=== PATIENT | male | born 1940 | race Caucasian/White ===

== ENCOUNTER 2023-11-01 21:21 | Inpatient (IN) ==
[2023-11-01] MEDS: SODIUM CHLORIDE 0.9% 500 ML IV ONE ×2 (22:02→23:44)
[2023-11-01 22:06] LABS: Base Excess VBG -3.4 mEq/L; HCO3 VBG 21 mmol/L; Oxygen Saturation VBG 84.5 %; PCO2 VBG 37 mmHg (38-50); PO2 VBG 50 mmHg; pH VBG 7.37 (7.36-7.41)
--- NOTE | 2023-11-01 22:12 | Emergency Department Note ---
Impression & Plan Urinary tract infection, Altered mental status, Hypomagnesemia, Head injury ED Provider Note NAME: JIMENEZ BOLTON AGE: 83 SEX: M : 1940 ARRIVES VIA: Ambulance INFORMANT: Patient, the patient's daughter ED PROVIDER(S): Luciano Suarez DO CHIEF COMPLAINT: Altered mental status HPI: The patient is an 83-year-old male who presented to the emergency department by ambulance for an evaluation of confusion and weakness. The patient was found to have a fever prior to arrival. The patient was treated with Tylenol by the medics. The patient himself denies having any headache or nausea. He denies having any chest pain or difficulty breathing. The family is noticed that he has had a cough. He has not had any recent traveling. They state that when he tried to stand up he did fall and strike his head on a bedside table. The patient denies having any headache. He does not take any blood thinners at this time. They did notice his blood sugar was slightly elevated throughout the day. ROS: See above HPI for pertinent positives & negatives. A total of 10 systems reviewed and were otherwise negative. PAST MEDICAL HISTORY: See Below PAST SURGICAL HISTORY: See Below FAMILY HISTORY: See Below SOCIAL HISTORY: See Below HOME MEDICATIONS: See Below ALLERGIES: See Below VITALS: See Below PHYSICAL EXAMINATION: GENERAL: Patient is awake and answers questions appropriately. There is an odor of urine in the room. EYES: The conjunctivae are clear. The pupils are round and reactive. EARS, NOSE, MOUTH AND THROAT: The nose is without any evidence of any deformity. NECK: The neck is nontender and supple. RESPIRATORY: Normal respiratory effort is noted there is no evidence of wheezing rhonchi or rales CARDIOVASCULAR: Regular rate and rhythm noted there no murmurs rubs or gallops normal S1 normal S2. GASTROINTESTINAL: The abdomen is soft. Abdomen is nontender. MUSCULOSKELETAL/EXTREMITIES: There is no evidence of gross deformity full range of motion is noted in the hips and shoulders. SKIN: Skin is warm and dry. Trace pedal edema was noted bilaterally. NEUROLOGIC: Patient is awake and oriented to person place and situation. Strength was symmetric but diminished. MEDICAL DECISION MAKING: The patient is an 83-year-old male who presented to the emergency department by ambulance. According to the family the patient has been very weak throughout the day. He was having trouble ambulating. He is at decreased p.o. intake. He was found to have a fever by the prehospital personnel prior to arrival. He was treated with Tylenol. The patient was found to have signs of urinary tract infection on urinalysis. He was treated with IV fluids and IV antibiotics. I discussed the patient's laboratory and radiographic studies with the patient's family. He was somewhat improved on reevaluation but given his laboratory and radiographic findings I do feel the patient would be a better candidate for inpatient management. He was treated with IV fluids but he did not receive a full sepsis fluid bolus because his chest x-ray could be consistent with some volume overload. He was treated with 2000 mL of normal saline solution. Triage Nursing notes reviewed. Prior medical records reviewed Vital Signs: reviewed and remarkable for hypoxia. Differential diagnosis: Viral syndrome, otitis, pharyngitis, pneumonia, influenza, meningitis, urinary tract infection, sepsis, bacteremia, as well as other pathologies. ER treatment provided: See below Diagnostics interpreted by me: ECG: EKG was obtained in the emergency department. My interpretation is sinus tachycardia 106 bpm. Poor R wave progression was noted with high lateral ST abnormalities. Inferior Q waves were noted. This was compared to a tracing from September 23, 2005. There is an increase in the rate. The PVCs are new. Lateral ST abnormalities are new as well compared to previous tracing. Cardiac Monitoring: An order was placed for continuous cardiac monitoring. The monitor shows a rate of 81 bpm with sinus rhythm. Laboratory studies: As stated above and show below. Imaging studies: See below. Radiographic imaging was reviewed by myself Consultation(s): I discussed this case with Dr. Beck who is on-call for the [facility]. He is agreed to evaluate the patient in the emergency department. ED COURSE: Procedures: none Critical Care: I have personally spent greater than 35 minutes of critical care time in the direct management of this patient. This includes bedside care, interpretation of diagnostic studies, and testing, discussion with consultants, patient, and family members, and other required patient management activities. This 35 minutes is in excess of all separately billable procedures. Past Med/Surg History Problem List (Updated 11/01/23 @ 23:06 by Luciano Suarez DO) Head injury (Acute) Hypomagnesemia (Acute) Altered mental status (Acute) Urinary tract infection (Acute) Medical History Morbid obesity with BMI of 40.0-44.9, adult Old myocardial infarct Chronic obstructive pulmonary disease Vitamin D deficiency Mild nonproliferative diabetic retinopathy of both eyes without macular edema associated with type 2 diabetes mellitus Chronic back pain CAD (coronary artery disease) HTN, goal below 140/90 Lumbago Type 2 diabetes mellitus with hemoglobin A1c goal of less than 8.0% Surgical History S/P total knee replacement Family History Mother Heart disease Sister Heart disease Father Cancer Social History Smoking Status: Former smoker Tobacco Type: Cigarettes packs per day: 1; Hx Alcohol Use: No Hx Substance Use: No Preferred Language: Polish marital status: 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 status: retired current occupation: [employer] Feels Safe at Home: Yes Allergies Allergies Allergy/AdvReac Type Severity Reaction Status Date / Time erythromycin base AdvReac Unknown Rash Unverified 12/05/20 16:03 metformin AdvReac Unknown Palpitation Unverified 12/05/20 16:03 s pioglitazone [From Actos] AdvReac Unknown Palpitation Unverified 12/05/20 16:03 s prednisone AdvReac Unknown Syncope Unverified 12/05/20 16:03 Home Meds Home Medications Medication Instructions Recorded Confirmed amlodipine 5 mg tablet 5 mg PO DAILY 12/05/20 12/05/20 aspirin 81 mg tablet,delayed 81 mg PO DAILY 12/05/20 12/05/20 release atorvastatin 80 mg tablet 80 mg PO DAILY 12/05/20 12/05/20 buprenorphine 10 mcg/hour weekly 1 patch transdermal Q7D 12/05/20 12/05/20 transdermal patch diclofenac sodium 2 g topical BID 12/05/20 12/05/20 glipizide 10 mg tablet 10 mg PO BID 12/05/20 12/05/20 hydrocodone 10 mg-acetaminophen 1 tab PO Q6H PRN 12/05/20 12/05/20 325 mg tablet insulin human U-100 NPH-regulr 70 unit subcut BID 12/05/20 12/05/20 70-30 mix 100 unit/mL subcutaneous susp (Novolin 70/30 U-100 Insulin) lisinopril 2.5 mg tablet 2.5 mg PO DAILY 12/05/20 12/05/20 metoprolol succinate 50 mg 50 mg PO DAILY 12/05/20 12/05/20 tablet,extended release 24 hr nitroglycerin 0.4 mg sublingual 0.4 mg sublingual Q5M PRN 12/05/20 12/05/20 tablet Results & Data (ED) Vital Signs Vital Signs - 24 hr 11/01/23 21:09 11/01/23 21:24 11/01/23 21:35 Temperature 37.3 C Temperature Source Oral Pulse Rate 105 H 108 H Respiratory Rate 22 Respiratory Effort / Characteristics Non-Labored Respiratory Depth Normal Respiratory Pattern Regular Blood Pressure 140/73 Blood Pressure Mean 95 Pulse Oximetry 92 87 L Oxygen Delivery Method Oxymask Room Air Oxygen Flow Rate 2 Sepsis Recent Fever Within 48 Hours Yes Sepsis New/Unexplained Change in Mental Status Yes Sepsis Action Taken by Nursing Physician Notified Oxygen Flow Rate - Titration 2 Pulse Oximetry Post Tiitration 92 11/01/23 21:35 11/01/23 21:45 11/01/23 22:03 Temperature Temperature Source Pulse Rate 103 H 107 H 100 H Respiratory Rate 22 25 H 18 Respiratory Effort / Characteristics Respiratory Depth Respiratory Pattern Blood Pressure 162/83 H 117/82 Blood Pressure Mean 109 93 Pulse Oximetry 92 90 91 Oxygen Delivery Method Nasal Cannula Nasal Cannula Nasal Cannula Oxygen Flow Rate 2 2 2 Sepsis Recent Fever Within 48 Hours Sepsis New/Unexplained Change in Mental Status Sepsis Action Taken by Nursing Oxygen Flow Rate - Titration Pulse Oximetry Post Tiitration 11/01/23 22:15 11/01/23 22:30 11/01/23 23:00 Temperature 36.9 C Temperature Source Oral Pulse Rate 94 H 90 Respiratory Rate 20 18 Respiratory Effort / Characteristics Respiratory Depth Respiratory Pattern Blood Pressure 140/94 168/89 H Blood Pressure Mean 126 115 Pulse Oximetry 91 91 Oxygen Delivery Method Nasal Cannula Nasal Cannula Oxygen Flow Rate 2 2 Sepsis Recent Fever Within 48 Hours Sepsis New/Unexplained Change in Mental Status Sepsis Action Taken by Nursing Oxygen Flow Rate - Titration Pulse Oximetry Post Tiitration 11/01/23 23:03 11/01/23 23:18 11/01/23 23:30 Temperature Temperature Source Pulse Rate 84 84 81 Respiratory Rate 20 19 18 Respiratory Effort / Characteristics Respiratory Depth Respiratory Pattern Blood Pressure 117/76 113/70 111/71 Blood Pressure Mean 89 84 84 Pulse Oximetry 91 91 91 Oxygen Delivery Method Nasal Cannula Nasal Cannula Nasal Cannula Oxygen Flow Rate 2 2 2 Sepsis Recent Fever Within 48 Hours Sepsis New/Unexplained Change in Mental Status Sepsis Action Taken by Nursing Oxygen Flow Rate - Titration Pulse Oximetry Post Tiitration Home Medications Current Medication List: was personally reviewed by me Laboratory Data Attestation: I reviewed the patient's lab results. 11/01/23 21:25 11/01/23 21:25 Lab Results 11/01/23 11/01/23 11/01/23 Range/Units 21:25 21:27 21:59 WBC 13.18 H (4.8-10.8) K/ul RBC 4.74 (4.70-6.10) M/uL Hgb 14.4 (14.0-18.0) g/dl Hct 41.4 L (42.0-52.0) % MCV 87.3 (80.0-100.0) fL MCH 30.4 (25.0-34.0) pg MCHC 34.8 (32.0-36.0) g/dL RDW Std Deviation 41.1 (36.4-46.3) fL RDW Coeff of Nay 12.9 (11.5-14.5) % PT 13.6 H (9.0-12.0) Seconds INR 1.3 H (0.9-1.1) APTT 28 (21-31) Seconds PTT Ratio 1.0 VBG pH 7.37 (7.36-7.41) VBG pCO2 37 L (38-50) mmHg VBG pO2 50 mmHg VBG HCO3 21 mmol/L VBG O2 Saturation 84.5 % VBG Base Excess -3.4 mEq/L Sodium 138 (136-145) mmol/L Potassium 3.6 (3.5-5.1) mmol/L Chloride 108 H (98-107) mmol/L Carbon Dioxide 20 L (21-32) mmol/L Anion Gap 10 (3-11) BUN 30 H (6-23) mg/dl Creatinine 1.15 (0.6-1.4) mg/dl Est Cr Clr Drug Dosing 61.9 ml/min Est GFR ( Amer) 68.8 ml/min Est GFR (Non-Af Amer) 59.4 ml/min BUN/Creatinine Ratio 26.1 H (10-20) Glucose 177 H (70-99(Fasting)) mg/dl POC Glucose 176 H (70-99) mg/dl Lactate 3.1 H* (0.4-2.0) mmol/L Calcium 9.4 (8.6-10.3) mg/dl Magnesium 1.3 L (1.7-2.4) mg/dl Total Bilirubin 2.3 H (0.2-1.0) mg/dl AST 29 (13-39) U/L ALT 14 (7-52) U/L Alkaline Phosphatase 101 (34-104) U/L Troponin I High Sens 31.4 H (0-20) pg/ml Total Protein 5.7 L (6.0-8.3) gm/dl Albumin 3.8 (3.4-5.0) gm/dl Globulin 1.9 L (2.5-4.0) gm/dl Albumin/Globulin Ratio 2.0 (0.9-2) Procalcitonin 3.09 H (0-0.5) ng/ml Urine Color Urine Appearance (Clear) Urine pH (4.5-7.5) Ur Specific [place] (1.000-1.030) Urine Protein (Negative) Urine Glucose (UA) (Negative) Urine Ketones (Negative) Urine Blood (Negative) Urine Nitrite (Negative) Urine Bilirubin (Negative) Urine Urobilinogen (Negative) Ur Leukocyte Esterase (Negative) Urine WBC (Auto) (0-5) /hpf Urine RBC (Auto) (0-2) /hpf U Hyaline Cast (Auto) (0-2) /lpf U Epithel Cells (Auto) (0-2) /hpf Urine Bacteria (Auto) (None Seen) Granular Casts (None Prsent) /lpf Adenovirus (PCR) (NotDetected) B. pertussis DNA (PCR) (NotDetected) B.parapertussis DNA PCR (NotDetected) C. pneumoniae DNA (PCR) (NotDetected) Coronavirus OC43 (PCR) (NotDetected) Coronavirus HKU1 (PCR) (NotDetected) Coronavirus 229E (PCR) (NotDetected) SARS-CoV-2 (PCR) (NotDetected) Coronavirus NL63 (PCR) (NotDetected) Human Metapneumovir PCR (NotDetected) Influenza Type A (PCR) (NotDetected) Influenza Type B (PCR) (NotDetected) M. pneumoniae (PCR) (NotDetected) Parainfluenza 1 (PCR) (NotDetected) Parainfluenza 2 (PCR) (NotDetected) Parainfluenza 3 (PCR) (NotDetected) Parainfluenza 4 (PCR) (NotDetected) RSV (PCR) (NotDetected) Entero/Rhino (PCR) (NotDetected) 11/01/23 Range/Units Unknown WBC (4.8-10.8) K/ul RBC (4.70-6.10) M/uL Hgb (14.0-18.0) g/dl Hct (42.0-52.0) % MCV (80.0-100.0) fL MCH (25.0-34.0) pg MCHC (32.0-36.0) g/dL RDW Std Deviation (36.4-46.3) fL RDW Coeff of Nay (11.5-14.5) % PT (9.0-12.0) Seconds INR (0.9-1.1) APTT (21-31) Seconds PTT Ratio VBG pH (7.36-7.41) VBG pCO2 (38-50) mmHg VBG pO2 mmHg VBG HCO3 mmol/L VBG O2 Saturation % VBG Base Excess mEq/L Sodium (136-145) mmol/L Potassium (3.5-5.1) mmol/L Chloride (98-107) mmol/L Carbon Dioxide (21-32) mmol/L Anion Gap (3-11) BUN (6-23) mg/dl Creatinine (0.6-1.4) mg/dl Est Cr Clr Drug Dosing ml/min Est GFR ( Amer) ml/min Est GFR (Non-Af Amer) ml/min BUN/Creatinine Ratio (10-20) Glucose (70-99(Fasting)) mg/dl POC Glucose (70-99) mg/dl Lactate (0.4-2.0) mmol/L Calcium (8.6-10.3) mg/dl Magnesium (1.7-2.4) mg/dl Total Bilirubin (0.2-1.0) mg/dl AST (13-39) U/L ALT (7-52) U/L Alkaline Phosphatase (34-104) U/L Troponin I High Sens (0-20) pg/ml Total Protein (6.0-8.3) gm/dl Albumin (3.4-5.0) gm/dl Globulin (2.5-4.0) gm/dl Albumin/Globulin Ratio (0.9-2) Procalcitonin (0-0.5) ng/ml Urine Color [place] Urine Appearance Turbid A (Clear) Urine pH 5.5 (4.5-7.5) Ur Specific [place] 1.025 (1.000-1.030) Urine Protein 3+ H (Negative) Urine Glucose (UA) 3+ H (Negative) Urine Ketones Trace H (Negative) Urine Blood 3+ H (Negative) Urine Nitrite Negative (Negative) Urine Bilirubin 1+ H (Negative) Urine Urobilinogen Negative (Negative) Ur Leukocyte Esterase 2+ H (Negative) Urine WBC (Auto) >50 H (0-5) /hpf Urine RBC (Auto) 0-2 (0-2) /hpf U Hyaline Cast (Auto) 11-20 H (0-2) /lpf U Epithel Cells (Auto) 0-2 (0-2) /hpf Urine Bacteria (Auto) 4+ H (None Seen) Granular Casts Present A (None Prsent) /lpf Adenovirus (PCR) Not Detected (NotDetected) B. pertussis DNA (PCR) Not Detected (NotDetected) B.parapertussis DNA PCR Not Detected (NotDetected) C. pneumoniae DNA (PCR) Not Detected (NotDetected) Coronavirus OC43 (PCR) Not Detected (NotDetected) Coronavirus HKU1 (PCR) Not Detected (NotDetected) Coronavirus 229E (PCR) Not Detected (NotDetected) SARS-CoV-2 (PCR) Not Detected (NotDetected) Coronavirus NL63 (PCR) Not Detected (NotDetected) Human Metapneumovir PCR Not Detected (NotDetected) Influenza Type A (PCR) Not Detected (NotDetected) Influenza Type B (PCR) Not Detected (NotDetected) M. pneumoniae (PCR) Not Detected (NotDetected) Parainfluenza 1 (PCR) Not Detected (NotDetected) Parainfluenza 2 (PCR) Not Detected (NotDetected) Parainfluenza 3 (PCR) Not Detected (NotDetected) Parainfluenza 4 (PCR) Not Detected (NotDetected) RSV (PCR) Not Detected (NotDetected) Entero/Rhino (PCR) Not Detected (NotDetected) Administered Medications Magnesium Sulfate/Dextrose (Magnesium Sulfate / D5w) 1 gm in 100 mls @ 100 mls/hr IV Q1H [place] Stop: 11/02/23 00:39 Last Admin: 11/01/23 23:45 Dose: 100 mls/hr Documented By: Infusion: 11/01/23 23:45 Dose: Infused Documented By: Admin: 11/01/23 22:50 Dose: 100 mls/hr Documented By: BRANDEN Discontinued Medications Sodium Chloride (Nss) 500 mls @ 999 mls/hr IV .Q31M ONE Stop: 11/01/23 22:28 Last Infusion: 11/01/23 22:31 Dose: Infused Documented By: Admin: 11/01/23 22:02 Dose: 999 mls/hr Documented By: BRANDEN Sodium Chloride (Nss) 1,000 mls @ 999 mls/hr IV .Q1H1M ONE Stop: 11/01/23 23:31 Last Infusion: 11/01/23 23:46 Dose: Infused Documented By: Admin: 11/01/23 22:50 Dose: 999 mls/hr Documented By: BRANDEN Piperacillin Sod/Tazobactam Sod (Zosyn) 4.5 gm in 100 mls @ 200 mls/hr IV NOW ONE Stop: 11/01/23 23:08 Last Infusion: 11/01/23 23:23 Dose: Infused Documented By: Admin: 11/01/23 22:50 Dose: 200 mls/hr Documented By: BRANDEN Sodium Chloride (Nss) 500 mls @ 999 mls/hr IV .Q31M ONE Stop: 11/01/23 23:42 Last Admin: 11/01/23 23:44 Dose: 999 mls/hr Documented By: BRANDEN Imaging Data Attestation: I personally reviewed and interpreted this imaging study as follows: My Impression: 1 view chest x-ray was obtained in the emergency department. My interpretation is possible left-sided infiltrate, final report pending. CT of the brain was obtained in the emergency department. My interpretation is no intracranial hemorrhage, final report pending Discharge Plan Visit Data Chief Complaint: Altered Mental Status Stated Complaint: ALTERED MENTAL STATUS, SOB ED Provider: Luciano Suarez Discharge Problem: Urinary tract infection, Altered mental status, Hypomagnesemia, Head injury Patient Disposition: Being Evaluated by Hospitalist Forms Stand Alone Forms: My [facility] Prescriptions Prescriptions: No Action hydrocodone-acetaminophen 10-325 mg tablet 1 tab PO Q6H PRN buprenorphine 10 mcg/hour patch weekly 1 patch transdermal Q7D Novolin 70/30 U-100 Insulin 100 unit/mL (70-30) suspension 70 unit subcut BID atorvastatin 80 mg tablet 80 mg PO DAILY lisinopril 2.5 mg tablet 2.5 mg PO DAILY metoprolol succinate 50 mg tablet extended release 24 hr 50 mg PO DAILY glipizide 10 mg tablet 10 mg PO BID amlodipine 5 mg tablet 5 mg PO DAILY diclofenac sodium 2 g topical BID aspirin 81 mg tablet,delayed release (DR/EC) 81 mg PO DAILY nitroglycerin 0.4 mg tablet, sublingual 0.4 mg sublingual Q5M PRN Rx Instructions: do not exceed 3 doses per episode Referrals Referrals: Richard Garcia PA-C [Outside Practitioners] - Discharge Problem: Urinary tract infection Qualifiers: Urinary tract infection type: site unspecified Hematuria presence: without hematuria Qualified Code(s): N39.0 - Urinary tract infection, site not specified Altered mental status Qualifiers: Altered mental status type: unspecified Qualified Code(s): R41.82 - Altered mental status, unspecified Head injury Qualifiers: Encounter type: initial encounter Qualified Code(s): S09.90XA - Unspecified injury of head, initial encounter
[2023-11-01 22:14] LABS: Appearance Urine Turbid (Clear); Bacteria Urine Automated 4+ (None Seen); Bilirubin Urine 1+ (Negative); Blood Urine 3+ (Negative); Color Urine Orange; Epithelial Cell Urine Auto 0-2 /hpf (0-2); Glucose Urine UA 3+ (Negative); Granular Casts Urine Present /lpf (None Prsent); Ketones Urine Trace (Negative); Leukocyte Esterase Urine 2+ (Negative); Nitrite Urine Negative (Negative); Protein Urine 3+ (Negative); RBC Urine Automated 0-2 /hpf (0-2); Specific Gravity Urine 1.025 (1.000-1.030); Urobilinogen Urine Negative (Negative); WBC Urine Automated >50 /hpf (0-5); pH Urine 5.5 (4.5-7.5)
[2023-11-01 22:26] LABS: Albumin Level 3.8 gm/dl (3.4-5.0); BUN Creatinine Ratio 26.1 (10-20); Bilirubin,Total 2.3 mg/dl (0.2-1.0); Calcium 9.4 mg/dl (8.6-10.3); Creatinine Clr Calc Pharmacy 61.9 ml/min; Est GFR (African American) 68.8 ml/min; Est GFR (Non-African American) 59.4 ml/min; Globulin 1.9 gm/dl (2.5-4.0); Magnesium 1.3 mg/dl (1.7-2.4); Potassium 3.6 mmol/L (3.5-5.1); Total Protein 5.7 gm/dl (6.0-8.3)
[2023-11-01 22:34] LABS: Troponin I High Sensitivity 31.4 pg/ml (0-20)
[2023-11-01 22:36] LABS: INR 1.3 (0.9-1.1); Partial Thromboplastin Time 28 Seconds (21-31); Prothrombin Time 13.6 Seconds (9.0-12.0)
[2023-11-01 22:48] LABS: Adenovirus PCR Not Detected (NotDetected); Bordetella parapertussis PCR Not Detected (NotDetected); Bordetella pertussis PCR Not Detected (NotDetected); Chlamydia pneumoniae PCR Not Detected (NotDetected); Coronavirus 229E PCR Not Detected (NotDetected); Coronavirus CoV-2 (COVID19)PCR Not Detected (NotDetected); Coronavirus HKU1 PCR Not Detected (NotDetected); Coronavirus NL63 PCR Not Detected (NotDetected); Coronavirus OC43PCR Not Detected (NotDetected); Human Metapneumovirus PCR Not Detected (NotDetected); Influenza A PCR Not Detected (NotDetected); Influenza B PCR Not Detected (NotDetected); Mycoplasma pneumoniae PCR Not Detected (NotDetected); Parainfluenza Virus 1 PCR Not Detected (NotDetected); Parainfluenza Virus 2 PCR Not Detected (NotDetected); Parainfluenza Virus 3 PCR Not Detected (NotDetected); Parainfluenza Virus 4 PCR Not Detected (NotDetected); Respiratory Syncytial VirusPCR Not Detected (NotDetected); Rhinovirus/Enterovirus PCR Not Detected (NotDetected)
[2023-11-01] MEDS: PIPERACILLIN/TAZOBACTAM 4.5 GM/100 ML BAG IV ONE (22:50)
[2023-11-01] MEDS: SODIUM CHLORIDE 0.9% 1,000 ML IV ONE (22:50)
[2023-11-01] MEDS: MAGNESIUM SULFATE / D5W 1 GM/100 ML BAG IV SCH (22:50)
[2023-11-01 23:01] LABS: Hematocrit (blood only) 41.4 % (42.0-52.0); Hemoglobin 14.4 g/dl (14.0-18.0); Mean Corpuscular Hemoglobin 30.4 pg (25.0-34.0); Mean Corpuscular Hgb Conc 34.8 g/dL (32.0-36.0); Mean Corpuscular Volume 87.3 fL (80.0-100.0); RDW Coefficient of Variation 12.9 % (11.5-14.5); RDW Standard Deviation 41.1 fL (36.4-46.3); Red Blood Count 4.74 M/uL (4.70-6.10); White Blood Count 13.18 K/ul (4.8-10.8)
[2023-11-01 23:57] LABS: Basophils # (auto) 0.03 K/uL (0.00-0.20); Basophils % (auto) 0.2 %; Dohle Bodies 1+; Eosinophils # (auto) 0.09 K/uL (0.00-0.50); Eosinophils % (auto) 0.7 %; Immature Granulocytes # (auto) 0.18 K/uL (0.01-0.20); Immature Granulocytes % (auto) 1.4 %; Lymphocytes # (auto) 0.48 K/uL (1.20-3.40); Lymphocytes % (auto) 3.6 %; Mean Platelet Volume 10.7 fL (9.4-12.4); Monocytes # (auto) 0.91 K/uL (0.11-0.59); Monocytes % (auto) 6.9 %; Neutrophils # (auto) 11.49 K/uL (1.40-6.50); Neutrophils % (auto) 87.2 %; Platelet Count 49 K/uL (130-400); Platelet Estimate Decreased (Normal)
[2023-11-02 00:14] LABS: Troponin I High Sensitivity 28.5 pg/ml (0-20)
--- NOTE | 2023-11-02 00:34 | CT Scan Report ---
Exam(s): CT HEAD Without Contrast EXAM: CT Head Without Intravenous Contrast CLINICAL HISTORY: Reason for exam: fall. TECHNIQUE: Axial computed tomography images of the head/brain without intravenous contrast. CTDI is 36.55 mGy and DLP is 624.41 mGy-cm. Automated exposure control was utilized for the study. A dose lowering technique was utilized adhering to the principles of ALARA. COMPARISON: No relevant prior studies available. FINDINGS: No acute intracranial hemorrhage. No midline shift or mass effect. The territorial cardenas-white matter differentiation is maintained throughout. Age-related cerebral volume loss. Periventricular and subcortical white matter hypoattenuation, consistent with chronic microangiopathy. The visualized orbits appear grossly unremarkable. The calvarium is intact. The visualized paranasal sinuses and mastoid air cells are grossly clear. IMPRESSION: No acute intracranial hemorrhage, midline shift, or mass effect. Electronically signed by: Jose R Julian MD 11/02/23 00:33 AM
--- NOTE | 2023-11-02 00:37 | History & Physical Report ---
Date of Service November 02, 2023 Assessment & Plan (1) Severe sepsis: Plan: SIRS plus lactic acidosis Secondary to complicated UTI Improved lactic acid level after initial intervention at the ER Troponin elevation secondary to illness, mild rhabdomyolysis chronic systolic heart failure secondary to ischemic cardiomyopathy (40 to 45%, TTE 2021), patient on dry side hx CAD status post CABG/stent/CVA hypertension, stable hyperlipidemia, on statin Rx DM2 insulin requiring, BSG currently elevated; well-controlled as of recent hemoglobin A1c of 6.2 last July 2023 chronic back pain on Butrans, mild withdrawal possibly precipitating confusion, and fall mood disorder, at baseline Chronic thrombocytopenia past tobacco abuse Admit Medical telemetry CS, Cefepime Monitor CPK response to gentle IV hydration Hold statin for now until CPK within normal limits Follow troponin, TTE for progression Basal bolus insulin adjusted for clear liquid diet for now, ISS BG goal 1 10-1 40, carb count coverage, update hemoglobin A1c PT OT eval DVT prophylaxis. SCDs Re: Thrombocytopenia Full code Patient daughter requesting updates providers. Ms. Alexia Tong, contact #[phone]. Text document was generated using [employer] voice recognition software. It may contain grammatical or spelling errors. Kindly contact undersigned for clarification of any documentation item in question. History of Present Illness Chief Complaint: Fall, weakness, confusion as per records Primary Care Provider: Joey Rose MD History obtained from patient, family, and records. History somewhat limited from patient secondary to mild hearing impairment. Medical history significant for chronic systolic heart failure secondary to ischemic cardiomyopathy (40 to 45%, TTE 2021), CAD status post CABG/stent, CVA, hypertension, hyperlipidemia, DM2 insulin requiring, chronic thrombocytopenia, chronic back pain on Butrans, history of tremors, mood disorder, past tobacco abuse, hx MRSA. Patient jittery for about a week. PCP's office unable to refill Butrans patch for almost a week. Increased urinary frequency without unusual abdominal or back pain yesterday. Fever chills without unusual chest pain, SOB. Patient fell at home last night from being shaky. Subsequent head trauma without LOC. Patient brought to ER for evaluation. Butrans patch, Zosyn administered at the ER. 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 Allergies Allergy/AdvReac Type Severity Reaction Status Date / Time erythromycin base AdvReac Unknown Rash Unverified 12/05/20 16:03 metformin AdvReac Unknown Palpitation Unverified 12/05/20 16:03 s pioglitazone [From Actos] AdvReac Unknown Palpitation Unverified 12/05/20 16:03 s prednisone AdvReac Unknown Syncope Unverified 12/05/20 16:03 Home Medications Medication Instructions Recorded Confirmed Type amlodipine 5 mg tablet 5 mg PO QAM 12/05/20 11/02/23 History aspirin 81 mg tablet,delayed 81 mg PO DAILY 12/05/20 11/02/23 History release atorvastatin 80 mg tablet 80 mg PO HS 12/05/20 11/02/23 History hydrocodone 10 mg-acetaminophen 1 tab PO Q6H PRN pain,moderate 12/05/20 11/02/23 History 325 mg tablet insulin human U-100 NPH-regulr 70 unit subcut BID 12/05/20 11/02/23 History 70-30 mix 100 unit/mL subcutaneous susp (Novolin 70/30 U-100 Insulin) metoprolol succinate 50 mg 50 mg PO DAILY 12/05/20 11/02/23 History tablet,extended release 24 hr nitroglycerin 0.4 mg sublingual 0.4 mg sublingual Q5M PRN Chest 12/05/20 11/02/23 History tablet Pain buprenorphine 15 mcg/hour weekly 1 patch topical WK 11/02/23 11/02/23 History transdermal patch diclofenac sodium 1 % topical gel 2 g topical BID PRN Pain 11/02/23 11/02/23 History dulaglutide 3 mg/0.5 mL 3 mg subcut WK 11/02/23 11/02/23 History subcutaneous pen injector (Trulicity) ibuprofen 600 mg tablet (IBU) 600 mg PO Q8 PRN Pain 11/02/23 11/02/23 History lisinopril 5 mg tablet 5 mg PO QAM 11/02/23 11/02/23 History sertraline 100 mg tablet 100 mg PO QAM 11/02/23 11/02/23 History tizanidine 4 mg tablet 4 mg PO Q8 PRN Muscle Spasm 11/02/23 11/02/23 History Past Med/Surg History Problem List (Updated 11/02/23 @ 08:30 by Joey Beck MD) Severe sepsis Head injury (Acute) Hypomagnesemia (Acute) Altered mental status (Acute) Urinary tract infection (Acute) Medical History Morbid obesity with BMI of 40.0-44.9, adult Old myocardial infarct Chronic obstructive pulmonary disease Vitamin D deficiency Mild nonproliferative diabetic retinopathy of both eyes without macular edema associated with type 2 diabetes mellitus Chronic back pain CAD (coronary artery disease) HTN, goal below 140/90 Lumbago Type 2 diabetes mellitus with hemoglobin A1c goal of less than 8.0% Surgical History S/P total knee replacement Family History Mother Heart disease Sister Heart disease Father Cancer Social History Smoking Status: Former smoker Tobacco Type: Cigarettes packs per day: 1; Smoking End Date: 30 yrs ago; Hx Alcohol Use: No Hx Substance Use: No Preferred Language: Greenlandic Entry Level Java Developer Required: No Beliefs That Will Affect Care: None marital status: Current Living Situation: Alone 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 status: 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 Feels Safe at Home: Yes Assistive Devices: Cane, Denture - Upper, Denture - Lower, Glasses and Hearing Aid - Bilateral Review of Systems Review of Systems: As per HPI, all other systems reviewed and negative Physical Exam Physical Exam: GENERAL: Slightly uncomfortable, obese, hard of hearing, no respiratory distress SKIN: Normal color, warm HEENT: Bespectacled,, nasal cannula in place [place] palpebral conjunctivae, no ptosis, dry buccal mucosa NECK : Supple, short neck, tenderness CHEST : Decreased breath sounds, no tenderness HEART : RRR, no obvious murmurs ABDOMEN: Some distention, nontender EXTREMITIES : Minimal LE swelling, no LE tenderness, no other conspicuous deformities noted NEUROLOGIC : Coherent, no facial asymmetry, hard of hearing, gait and stance not assessed Results & Data Results & Data Vital Signs (Past 12 Hours) Vital Signs Temp Pulse Resp BP Pulse Ox O2 Del Method O2 Flow Rate 11/01/23 23:30 81 18 111/71 91 Nasal Cannula 2 11/01/23 23:18 84 19 113/70 91 Nasal Cannula 2 11/01/23 23:03 84 20 117/76 91 Nasal Cannula 2 11/01/23 23:00 36.9 C 11/01/23 22:30 90 18 168/89 H 91 Nasal Cannula 2 11/01/23 22:15 94 H 20 140/94 91 Nasal Cannula 2 11/01/23 22:03 100 H 18 117/82 91 Nasal Cannula 2 11/01/23 21:45 107 H 25 H 162/83 H 90 Nasal Cannula 2 11/01/23 21:35 103 H 22 92 Nasal Cannula 2 11/01/23 21:35 87 L Room Air 11/01/23 21:24 108 H 11/01/23 21:09 37.3 C 105 H 22 140/73 92 Oxymask 2 Laboratory Results Laboratory Results WBC 13.18 K/ul (4.8-10.8) H 11/01/23 21:25 RBC 4.74 M/uL (4.70-6.10) 11/01/23 21:25 Hgb 14.4 g/dl (14.0-18.0) 11/01/23 21:25 Hct 41.4 % (42.0-52.0) L 11/01/23 21: MCV 87.3 fL (80.0-100.0) 11/01/23 21: MCH 30.4 pg (25.0-34.0) 11/01/23 21: MCHC 34.8 g/dL (32.0-36.0) 11/01/23 21:25 RDW Std Deviation 41.1 fL (36.4-46.3) 11/01/23 21:25 RDW Coeff of Nay 12.9 % (11.5-14.5) 11/01/23 21: Plt Count 49 K/uL (130-400) L 11/01/23 21: MPV 10.7 fL (9.4-12.4) 11/01/23 21:25 Immature Gran % (Auto) 1.4 % 11/01/23 21:25 Neut % (Auto) 87.2 % 11/01/23 21: Lymph % (Auto) 3.6 % 11/01/23 21:25 Kerr % (Auto) 6.9 % 11/01/23 21:25 Eos % (Auto) 0.7 % 11/01/23 21: Baso % (Auto) 0.2 % 11/01/23: Neut # (Auto) 11.49 K/uL (1.40-6.50) H 11/01/23 21:25 Lymph # (Auto) 0.48 K/uL (1.20-3.40) L 11/01/23: [place] # (Auto) 0.91 K/uL (0.11-0.59) H 11/01/23 21: Eos # (Auto) 0.09 K/uL (0.00-0.50) 11/01/23: Baso # (Auto) 0.03 K/uL (0.00-0.20) 11/01/23: Immature Gran # (Auto) 0.18 K/uL (0.01-0.20) 11/01/23: Dohle Bodies 1+ 11/01/23: Platelet Estimate Decreased (Normal) L 11/01/23 21: PT 13.6 Seconds (9.0-12.0) H 11/01/23: INR 1.3 (0.9-1.1) H 11/01/23: APTT 28 Seconds (21-31) 11/01/23: PTT Ratio 1.0 11/01/23: VBG pH 7.37 (7.36-7.41) 11/01/23: VBG pCO2 37 mmHg (38-50) L 11/01/23 21:59 VBG pO2 50 mmHg 11/01/23 21:59 VBG HCO3 21 mmol/L 11/01/23 21:59 VBG O2 Saturation 84.5 % 11/01/23 21:59 VBG Base Excess -3.4 mEq/L 11/01/23: Sodium 138 mmol/L (136-145) 11/01/23 21:25 Potassium 3.6 mmol/L (3.5-5.1) 11/01/23 21: Chloride 108 mmol/L (98-107) H 11/01/23 21:25 Carbon Dioxide 20 mmol/L (21-32) L 11/01/23 21:25 Anion Gap 10 (3-11) 11/01/23 21:25 BUN 30 mg/dl (6-23) H 11/01/23 21:25 Creatinine 1.15 mg/dl (0.6-1.4) 11/01/23 21:25 Est Cr Clr Drug Dosing 61.9 ml/min 11/01/23 21:25 Est GFR ( Amer) 68.8 ml/min 11/01/23 21:25 Est GFR (Non-Af Amer) 59.4 ml/min 11/01/23 21:25 BUN/Creatinine Ratio 26.1 (10-20) H 11/01/23 21:25 Glucose 177 mg/dl (70-99(Fasting)) H 11/01/23 21:25 POC Glucose 176 mg/dl (70-99) H 11/01/23 21:27 Lactate 1.9 mmol/L (0.4-2.0) 11/01/23 23:34 Calcium 9.4 mg/dl (8.6-10.3) 11/01/23 21:25 Magnesium 1.3 mg/dl (1.7-2.4) L 11/01/23 21:25 Total Bilirubin 2.3 mg/dl (0.2-1.0) H 11/01/23 21:25 AST 29 U/L (13-39) 11/01/23 21:25 ALT 14 U/L (7-52) 11/01/23 21:25 Alkaline Phosphatase 101 U/L (34-104) 11/01/23 21:25 Total Creatine Kinase 820 U/L (30-223) H 11/01/23 23:34 Troponin I High Sens 28.5 pg/ml (0-20) H 11/01/23 23:34 B-Natriuretic Peptide 230 pg/ml (0-100) H 11/01/23 23:34 Total Protein 5.7 gm/dl (6.0-8.3) L 11/01/23 21:25 Albumin 3.8 gm/dl (3.4-5.0) 11/01/23 21:25 Globulin 1.9 gm/dl (2.5-4.0) L 11/01/23 21:25 Albumin/Globulin Ratio 2.0 (0.9-2) 11/01/23 21:25 Procalcitonin 3.09 ng/ml (0-0.5) H 11/01/23 21:25 Urine Color [place] 11/01/23 Unknown Urine Appearance Turbid (Clear) A 11/01/23 Unknown Urine pH 5.5 (4.5-7.5) 11/01/23 Unknown Ur Specific [place] 1.025 (1.000-1.030) 11/01/23 Unknown Urine Protein 3+ (Negative) H 11/01/23 Unknown Urine Glucose (UA) 3+ (Negative) H 11/01/23 Unknown Urine Ketones Trace (Negative) H 11/01/23 Unknown Urine Blood 3+ (Negative) H 11/01/23 Unknown Urine Nitrite Negative (Negative) 11/01/23 Unknown Urine Bilirubin 1+ (Negative) H 11/01/23 Unknown Urine Urobilinogen Negative (Negative) 11/01/23 Unknown Ur Leukocyte Esterase 2+ (Negative) H 11/01/23 Unknown Urine WBC (Auto) >50 /hpf (0-5) H 11/01/23 Unknown Urine RBC (Auto) 0-2 /hpf (0-2) 11/01/23 Unknown U Hyaline Cast (Auto) 11-20 /lpf (0-2) H 11/01/23 Unknown U Epithel Cells (Auto) 0-2 /hpf (0-2) 11/01/23 Unknown Urine Bacteria (Auto) 4+ (None Seen) H 11/01/23 Unknown Granular Casts Present /lpf (None Prsent) A 11/01/23 Unknown Adenovirus (PCR) Not Detected (NotDetected) 11/01/23 Unknown B. pertussis DNA (PCR) Not Detected (NotDetected) 11/01/23 Unknown B.parapertussis DNA PCR Not Detected (NotDetected) 11/01/23 Unknown C. pneumoniae DNA (PCR) Not Detected (NotDetected) 11/01/23 Unknown Coronavirus OC43 (PCR) Not Detected (NotDetected) 11/01/23 Unknown Coronavirus HKU1 (PCR) Not Detected (NotDetected) 11/01/23 Unknown Coronavirus 229E (PCR) Not Detected (NotDetected) 11/01/23 Unknown SARS-CoV-2 (PCR) Not Detected (NotDetected) 11/01/23 Unknown Coronavirus NL63 (PCR) Not Detected (NotDetected) 11/01/23 Unknown Human Metapneumovir PCR Not Detected (NotDetected) 11/01/23 Unknown Influenza Type A (PCR) Not Detected (NotDetected) 11/01/23 Unknown Influenza Type B (PCR) Not Detected (NotDetected) 11/01/23 Unknown M. pneumoniae (PCR) Not Detected (NotDetected) 11/01/23 Unknown Parainfluenza 1 (PCR) Not Detected (NotDetected) 11/01/23 Unknown Parainfluenza 2 (PCR) Not Detected (NotDetected) 11/01/23 Unknown Parainfluenza 3 (PCR) Not Detected (NotDetected) 11/01/23 Unknown Parainfluenza 4 (PCR) Not Detected (NotDetected) 11/01/23 Unknown RSV (PCR) Not Detected (NotDetected) 11/01/23 Unknown Entero/Rhino (PCR) Not Detected (NotDetected) 11/01/[address] 11/01/23 21:58 Exam(s): CT HEAD Without Contrast EXAM: CT Head Without Intravenous Contrast CLINICAL HISTORY: Reason for exam: fall. TECHNIQUE: Axial computed tomography images of the head/brain without intravenous contrast. CTDI is 36.55 mGy and DLP is 624.41 mGy-cm. Automated exposure control was utilized for the study. A dose lowering technique was utilized adhering to the principles of ALARA. COMPARISON: No relevant prior studies available. FINDINGS: No acute intracranial hemorrhage. No midline shift or mass effect. The territorial cardenas-white matter differentiation is maintained throughout. Age-related cerebral volume loss. Periventricular and subcortical white matter hypoattenuation, consistent with chronic microangiopathy. The visualized orbits appear grossly unremarkable. The calvarium is intact. The visualized paranasal sinuses and mastoid air cells are grossly clear. IMPRESSION: No acute intracranial hemorrhage, midline shift, or mass effect. Electronically signed by: Jose R Julian MD 11/02/23 00:33 AM Diagnostic Findings Chest x-ray as per my interpretation cardiomegaly, no congestion EKG as per my interpretation : Rate 105, sinus tachycardia, LAD, LAFB, LVH, septal infarct, T wave abnormalities lateral leads, PVCs
[2023-11-02] MEDS ORDERED: PROMETHAZINE HCL 12.5 MG in SODIUM CHLORIDE 0.9% 50 ML IV PRN (00:42)
[2023-11-02] MEDS: ALBUMIN 25% 25 GM/100 ML VIAL IV ONE (01:03)
[2023-11-02] MEDS: MAGNESIUM SULFATE / D5W 1 GM/100 ML BAG IV SCH (01:03)
[2023-11-02] MEDS ORDERED: DICLOFENAC SOD 1% GEL 100 GM TUBE EXT PRN (02:15)
[2023-11-02] MEDS ORDERED: GLUCOSE 10 TAB/TUBE PO PRN (02:15)
[2023-11-02] MEDS ORDERED: GLUCAGON FOR INJ 1 MG VIAL SQ PRN (02:15)
[2023-11-02] MEDS ORDERED: DEXTROSE 50% 50 ML SYRINGE IV PRN (02:15)
[2023-11-02] MEDS ORDERED: CARBOHYDRATES FOR HYPOGLYCEMIA PO PRN (02:15)
[2023-11-02] MEDS ORDERED: GLUCOSE 40% GEL 15 GM TUBE PO PRN (02:15)
[2023-11-02] MEDS: INSULIN ASPART PER UNIT CHARGE SC SCH (02:29)
[2023-11-02] MEDS ORDERED: NON-FORMULARY MEDICATION (Buprenorphine 1 PATCH) TOP SCH (02:40)
[2023-11-02] MEDS: CHECK BUPRENORPHINE PATCH SCH (03:31)
[2023-11-02] MEDS: CEFEPIME 2,000 MG in SYRINGE 0 ML IV SCH (06:01)
--- NOTE | 2023-11-02 06:55 | XRay Report ---
XR chest 1V not portable CLINICAL HISTORY: Sepsis TECHNIQUE: Single frontal radiograph of the chest was obtained. Comparison: Comparison is made to CT chest 10/01/2005 FINDINGS: Median sternotomy wires are seen with fractured superior wire. Cardiomegaly is noted. The lungs are c lear. No evidence of pleural effusion or pneumothorax. IMPRESSION: No acute abnormalities and in particular no radiographic evidence of pneumonia. ACT 112: Negative or not required by law. Electronically signed by: Terrance Akers M.D. 11/02/2023 6:53 AM
[2023-11-02 08:15] LABS: Est GFR (African American) 77.7 ml/min; Potassium 3.8 mmol/L (3.5-5.1)
[2023-11-02 08:16] LABS: BUN Creatinine Ratio 31.7 (10-20); Calcium 8.7 mg/dl (8.6-10.3); Creatinine Clr Calc Pharmacy 69.1 ml/min
[2023-11-02] MEDS: amLODIPine BESYLATE 5 MG TAB PO SCH (08:25)
[2023-11-02] MEDS: METOPROLOL SUCC 50MG EXT REL TAB PO SCH (08:25)
[2023-11-02] MEDS: ASPIRIN 81 MG ECTAB PO SCH (08:25)
[2023-11-02] MEDS: SERTRALINE HCL 100 MG TABLET PO SCH (08:25)
[2023-11-02 08:27] LABS: Hematocrit (blood only) 36.4 % (42.0-52.0); Hemoglobin 12.7 g/dl (14.0-18.0); Mean Corpuscular Hemoglobin 30.5 pg (25.0-34.0); Mean Corpuscular Hgb Conc 34.9 g/dL (32.0-36.0); Mean Corpuscular Volume 87.3 fL (80.0-100.0); Mean Platelet Volume 10.9 fL (9.4-12.4); Platelet Count 39 K/uL (130-400); RDW Coefficient of Variation 13.2 % (11.5-14.5); RDW Standard Deviation 41.9 fL (36.4-46.3); Red Blood Count 4.17 M/uL (4.70-6.10); White Blood Count 9.17 K/ul (4.8-10.8)
[2023-11-02 08:28] LABS: Basophils # (auto) 0.03 K/uL (0.00-0.20); Basophils % (auto) 0.3 %; Eosinophils # (auto) 0.04 K/uL (0.00-0.50); Eosinophils % (auto) 0.4 %; Immature Granulocytes # (auto) 0.08 K/uL (0.01-0.20); Immature Granulocytes % (auto) 0.9 %; Lymphocytes # (auto) 0.63 K/uL (1.20-3.40); Lymphocytes % (auto) 6.9 %; Monocytes # (auto) 0.71 K/uL (0.11-0.59); Monocytes % (auto) 7.7 %; Neutrophils # (auto) 7.68 K/uL (1.40-6.50); Neutrophils % (auto) 83.8 %; Toxic Vacuolation 1+
[2023-11-02] MEDS: NSS + 20MEQ KCL 20 MEQ/1,000 ML BAG IV SCH (08:48)
[2023-11-02 09:03] LABS: Estimated Average Glucose 128 mg/dl; Hemoglobin A1C 6.1 % (4.5-5.6)
[2023-11-02] MEDS: LANTUS PER UNIT CHARGE SQ SCH ×2 (09:04→21:08)
[2023-11-02] MEDS: HYDROCODONE/ACETAMOPHEN 5/325MG TAB PO PRN (09:04)
[2023-11-02 10:07] LABS: A calco-baum cmplx NotReported Not Detected (NotDetected); Bact fragilis Not Reported Not Detected (NotDetected); Blood Culture Id Panel See PCR Comment (NotDetected); C auris Not Reported Not Detected (NotDetected); CTX-M Resistant Gene Not Detected (NotDetected); Calbicans Not Reported Not Detected (NotDetected); Candida glabrata Not Reported Not Detected (NotDetected); Candida krusei Not Reported Not Detected (NotDetected); Cneoformans/gatti Not Reported Not Detected (NotDetected); Cparapsilosis Not Reported Not Detected (NotDetected); E cloacae compx Not Reported Not Detected (NotDetected); Efaecalis Not Reported Not Detected (NotDetected); Efaecium Not Reported Not Detected (NotDetected); Enterobacterales DETECTED (NotDetected); Enterobacterales Not Reported DETECTED (NotDetected); Escherichia coli Not Reported Not Detected (NotDetected); H influenzae Not Reported Not Detected (NotDetected); IMP Resistant Gene Not Detected (NotDetected); K aerogenes Not Reported DETECTED (NotDetected); KPC Resistant Gene Not Detected (NotDetected); Koxytoca Not Reported Not Detected (NotDetected); Kpneumoniae grp Not Reported Not Detected (NotDetected); Lmonocyt Not Reported Not Detected (NotDetected); N meningitidis Not Reported Not Detected (NotDetected); NDM Resistant Gene Not Detected (NotDetected); OXA 48 Like Resistant Gene Not Detected (NotDetected); P aeruginosa Not Reported Not Detected (NotDetected); Proteus spp Not Reported Not Detected (NotDetected); Salmonella spp Not Reported Not Detected (NotDetected); Staph lugdunensis Not Reported Not Detected (NotDetected); Staph spp. Not Reported Not Detected (NotDetected); Staphaureus Not Reported Not Detected (NotDetected); Staphepi Not Reported Not Detected (NotDetected); Stenmaltophilia Not Reported Not Detected (NotDetected); Strep agal(GrpB) Not Reported Not Detected (NotDetected); Strep pneum Not Reported Not Detected (NotDetected); Strep pyog (GrpA) Not Reported Not Detected (NotDetected); Strep spp Not Reported Not Detected (NotDetected); VIM Resistant Gene Not Detected (NotDetected); mcr-1 Colistin Resistant Gene Not Detected (NotDetected)
[2023-11-02 11:01] LABS: Klebsiella aerogenes DETECTED (NotDetected)
--- NOTE | 2023-11-02 13:43 | Communication Note ---
Date of Service: November 02, 2023 Patient reports subjective improvement. Daughters at bedside, discussed reasons for continued admission. Hgb down from 14 to 12, platelets from 46 to 39, no signs of bleeding Leukocytosis resolved CK down trending at 664 from 800s Blood cultures +3/4 for GNB, BCID klebsiella/enterobacterales CTXM negative UA cultures pending #Sepsis 2/2 acute complicated cystitis POA #Uncomplicated GNB bacteremia, klebsiella/enterbacterales clinically improving, HDS, leukocytosis resolved Continue cefepime per BCID empiric guidance Plan to transition to PO contingent on susceptibilities for 10 day course Repeat blood cultures this evening iso bilateral knee replacements #Acute anemia #acute thrombocytopenia likely 2/2 sepsis, anemia labs in am SCDs #Mild rhabdo, nontraumatic #Elevated troponin Troponin elevation in conjunction with rhabdo/sepsis Repeat CK in am D/C fluids and encourage PO intake rest of plan per HP
--- OUTSIDE RECORDS SUMMARY | 2023-11-02 14:14 | External Medical Summary | Summary of Care ---
Author Name Unknown Organization [facility] Address [address] [facility] [place] [address] Phone [phone] Care Team Providers Care Compressor Station Chief Engineer Name Role Phone Joey Cody DO Primary Care Provid er Reason for Visit * Reason Comments eRx-Medication Refill Encounter Details Date Type Department Care Team ([facility] st Contact Info) Description 10/03/2023 Refill Family [facility] [address] [place] [address] Joey Cody DO [address] [place] [id number] Chronic right-sided low back pain with right-sided sciatica Allergies Active Allergy Reactions Criticality Noted Date Comments Pioglitazone Hydrochloride Other (Please comment) 11/19/2009 palpitations Erythromycin Base Rash 11/19/2009 Metformin 09/24/2011 Metformin Hcl Other (Please comment) 11/19/2009 palpitations Prednisone 11/19/2009 syncope documented as of this encounter (statuses as of 10/04/2023) Medications Medication Sig Dispensed Refills Start Date End Date Status aspirin 81 MG chewable tablet Take 1 Tablet by mouth in the morning and 1 Tablet before bedtime. With food.. 100 Tab 9 Active Diclofenac Sodium 1 % gelIndications:Gene ralized osteoarthritis apply two grams topically to affected area(s) twice daily as directed 100 g 5 0 Active Additional Information Patient taking differently: Indications: pain, Reported on 08/20/2022 Insulin Syringe 31G X 5/16" 1 MLIndications:DM type 2, goal: symptom mgmt (HCC) Inject under the skin. Inject under skin 2 times daily as directed Dx: DM type 2, goal: symptom mgmt, E11.9 100 Each 5 0 Active Nitroglycerin 0.4 MG Sublingual Tablet Sublingual (Nitrostat)Indicati ons:Coronary artery disease involving chickahominy indians-eastern division coronary artery of chickahominy indians-eastern division heart without angina pectoris Place 1 Tablet under the tongue as needed for Pain, Chest. May repeat 3 times. If chest pain continues, call 911. 25 Tablet 3 3 Active Tadalafil 20 MG Oral Tablet (Cialis)Indications :Other male erectile dysfunction Take 1 Tablet by mouth daily as needed for Erectile Dysfunction. 10 Tablet 3 3 Active Lisinopril 5 MG Oral Tablet (Prinivil)Indicatio ns:HTN, goal below 140/90,Dyslipidemia , goal LDL below 70,Coronary artery disease involving chickahominy indians-eastern division coronary artery of chickahominy indians-eastern division heart without angina pectoris Take 1 Tablet by mouth in the morning. 90 Tablet 3 3 Active Atorvastatin Calcium 80 MG Oral Tablet (Lipitor)Indication s:Dyslipidemia TAKE ONE TABLET BY MOUTH ONCE DAILY 90 Tablet 3 3 Active Furosemide 40 MG Oral Tablet (Lasix)Indications: Localized edema TAKE 1 TABLET BY MOUTH ONCE DAILY IN THE MORNING 90 Tablet 1 3 Active OneTouch Delica Lancets 33GIndications:Type 2 diabetes mellitus with diabetic peripheral angiopathy without gangrene, with long-term current use of insulin (HCC) use up to 4 times a day as directed 100 Each 5 3 Active Blood Glucose Test Strips 333 In Vitro StripIndications:Ty pe 2 diabetes mellitus with diabetic peripheral angiopathy without gangrene, with long-term current use of insulin (HCC) Use to check sugar 4 times daily 400 Strip 11 3 Active Trulicity 4.5 MG/0.5ML Subcutaneous Solution Pen-injector (Dulaglutide) Inject 4.5 mg under the skin once a week. 6 mL 3 4 Active tiZANidine HCl 4 MG Oral Tablet (Zanaflex)Indicatio ns:Chronic right-sided low back pain with right-sided sciatica Take 1 Tablet by mouth every 8 hours as needed for Muscle spasms. 90 Tablet 1 4 Active Sertraline HCl 100 MG Oral Tablet (Zoloft)Indications :Recurrent major depressive disorder, in remission (HCC) TAKE 1 TABLET BY MOUTH ONCE DAILY IN THE MORNING 90 Tablet 1 4 Active amLODIPine Besylate 5 MG Oral Tablet (Norvasc)Indication s:HTN, goal below 140/90 TAKE 1 TABLET BY MOUTH ONCE DAILY IN THE MORNING 90 Tablet 1 4 Active BD Insulin Syringe U/F 31G X 5/16" 1 ML (Insulin Syringe-Needle U-100) use twice daily with insulin DIRECTED 200 Each 4 Active Ibuprofen 600 MG Oral Tablet (Motrin) TAKE 1 TABLET BY MOUTH EVERY 8 HOURS NEEDED FOR PAIN, TAKE WITH FOOD 90 Tablet 3 4 Active Metoprolol Succinate ER 50 MG Oral Tablet Extended Release 24 Hour (toPROL XL)Indications:Gabriele nary artery disease involving chickahominy indians-eastern division coronary artery of chickahominy indians-eastern division heart without angina pectoris TAKE ONE TABLET BY MOUTH ONCE DAILY 90 Tablet 3 4 Active NovoLOG Mix 70/30 FlexPen (70-30) 100 UNIT/ML Suspension Pen-injector (Insulin Aspart Prot & Aspart)Indications: Type 2 diabetes mellitus with diabetic peripheral angiopathy without gangrene, with long-term current use of insulin ([facility]) Inject under the skin 2 times a day. 70 units before breakfast and 70 units before supper. 120 mL 4 Active Pen [place] 32G X 6 MMIndications:Type 2 diabetes mellitus with diabetic peripheral angiopathy without gangrene, with long-term current use of insulin ([facility]) Use as directed. Use to inject Novolog insulin twice a day 200 Each 4 Active Trulicity 3 MG/0.5ML Subcutaneous Solution Pen-injector (Dulaglutide)Indica tions:Type 2 diabetes mellitus with diabetic peripheral angiopathy without gangrene, with long-term current use of insulin ([facility]),Type 2 diabetes mellitus with hemoglobin A1c goal of less than 8.0% ([facility]) Inject 3 mg under the skin once a week. 6 mL 4 Active Buprenorphine 15 MCG/HR Transdermal Patch WeeklyIndications:S jose enrique stenosis of lumbar region without neurogenic claudication,Chroni c bilateral low back pain with bilateral sciatica Place 1 Patch topically on the skin once a week. 4 Patch 4 Active HYDROcodone-Acetami nophen 10-325 MG Oral TabletIndications:C hronic right-sided low back pain with right-sided sciatica Take 1 Tablet by mouth every 6 hours as needed for Pain, Moderate. 120 Tablet 4 Active HYDROcodone-Acetami nophen 10-325 MG Oral TabletIndications:C hronic right-sided low back pain with right-sided sciatica Take 1 Tablet by mouth every 6 hours as needed for Pain, Moderate. 120 Tablet 4 10/04/19 24 Discontinued documented as of this encounter (statuses as of 10/04/2023) Active Problems Problem Noted Date Diagnosed Date Chronic pain syndrome 03/22/2023 Recurrent major depressive disorder, in remissio n 07/24/2021 Essential tremor 06/17/2021 Epididymal cyst 06/17/2021 Ischemic cardiomyopathy 06/17/2021 Spinal stenosis of lumbar re gion without neurogenic claudication 03/24/2021 Severe obesity with body mas s index (BMI) of 35.0 to 39.9 with serious comorbidity 01/08/2021 History of amputation of lesser toe of right geena t 2019 Old myocardial infarct 09/28/2018 Chronic obstructive pulmonary disease 12/01/2017 Vitamin D deficiency 02/18/2017 Mild nonproliferative diabet ic retinopathy of both eyes without macular edema associated with type 2 diabetes mellitus 11/22/2016 Overview: 05/26/2020 Retinal Scan Interpretation: There is mild retinopathy in right eye Combined form of age-related cataract, both eyes 11/22/2016 CAD (coronary artery disease) 06/15/2016 Chronic back pain 06/15/2016 Controlled substance agreement signed 02/13/2016 Hypertension associated with type 2 diabetes lacey litus 07/07/2015 Overview: Per HTN Protocol #27. Type 2 diabetes mellitus wit h diabetic peripheral angiopathy without gangrene, with long-term current use of insulin 07/04/2012 Type 2 diabetes mellitus wit h hemoglobin A1c goal of less than 8.0% 12/10/2009 Overview: ICD-10 update of inactive term documented as of this encounter (statuses as of 10/04/2023) Resolved Problems Problem Noted Date Diagnosed Date Resolved Date Hyperlipidemia associated wi th type 2 diabetes mellitus 06/17/2021 10/04/2023 Morbid obesity with BMI of 40.0-44.9, adult 10/02/2018 01/08/2021 Body mass index (BMI) of 40. 0 to 44.9 in adult 03/13/2018 09/28/2018 Overview: Per Obesity protocol #1 Morbid (severe) obesity due to excess calories 12/01/2017 09/28/2018 CAD (coronary artery disease) 08/03/2016 04/18/2017 NSTEMI (non-ST elevated myoc ardial infarction) 06/15/2016 09/28/2018 Lumbago 02/13/2015 01/08/2021 Back pain 12/27/2011 02/13/2015 HTN, GOAL BELOW 140/80 12/20/201108/05 Overview: Per HTN Protocol #27. HTN, goal below 130/80 12/10/200912/22 Overview: Per HTN Protocol #27. documented as of this encounter (statuses as of 10/04/2023) Immunizations Name Administration Dates Next Due Pneumococcal Polysaccharide PPV23 (Pneumovax) 12/22/2010(Deferred: Patient Refused) Seasonal Influenza, Split, I IV3, With Preserve, Inj 03/16/2010(Deferred: Patient Refused) documented as of this encounter Social History Tobacco Use Types Packs/Day Years Used Date Smoking Tobacco: Former Cigarettes 1 20 0 06/15/1966 - 06/15/1986 Smokeless Tobacco: Former Alcohol Use Standard Drinks/Week Comments No 0 (1 standard drink = 0.6 oz pur e alcohol) PHQ-2 Answer Date Recorded PHQ Adult Total Score 0 12/21/2022 Sex and Gender Information Value Date Recorded Sex Assigned at Male 01/23/2021 3:07 PM EDT Gender Identity Male 01/23/2021 3:07 PM EDT Sexual Orientation Straight 01/23/2021 3: 07 PM EDT Job Start Date Occupation Industry Not on file Not on file Not on file documented as of this encounter Functional Status Functional Status Response Date of Assess ment Are you blind or do you have serious difficulty seeing, even when wearing glasses? No 06/15/2016 Do you have serious difficul ty walking or climbing stairs? (5 years old or older) No 06/15/2016 Do you have difficulty dress ing or bathing? (5 years old or older) No 06/15/2016 Because of a physical, menta l, or emotional condition, do you have difficulty doing errands alone such as visiting a doctor s office or shopping? (15 years old or older) No 06/15/19 17 Cognitive Status Response Date of Assessm ent Because of a physical, menta l, or emotional condition, do you have serious difficulty concentrating, remembering, or making decisions? (5 years old or older) No 06/15/2016 documented as of this encounter Miscellaneous Notes * Telephone Encounter - Joey Cody DO - 10/04/2023 4:14 PM EDT Signed Prescriptions: Disp Refills HYDROcodone-Acetaminophen 10-325 MG Oral T*120 Ta*0 Sig: Take 1 Tablet by mouth every 6 hours as needed for Pain, Moderate. Authorizing Provider: JOEY CODY * Telephone Encounter - Allen Castanon [facility] - 10/04/2023 2:43 PM EDTPending Prescriptions: Disp Refills HYDROcodone-Acetaminophen 10-325 MG Oral T*120 Ta*0 Sig: Take 1 Tablet by mouth every 6 hours as needed for Pain, Moderate. * Telephone Encounter - Allen Castanon RP - 10/04/2023 2:41 PM EDT I have reviewed the patients controlled substance dispensing history in the Prescription Drug Monitoring Program in compliance with the [facility] regulations before prescribing a controlled substance. PDMP checked on 10/04/2023. Pending Prescriptions: Disp Refills HYDROcodone-Acetaminophen 10-325 MG Oral *120 Ta*0 Sig: Take 1 Tablet by mouth every 6 hours as needed for Pain, Moderate. Last Visit: 09/16/2023 (in office), Visit date not found (telemedicine) Next Visit: Visit date not found Date medication was last filled: 08-26-23 Date medication is due for refill: 09-24-23 Pharmacy: [email or web address] [address] Is this request for a controlled substance? Yes and Urine Drug Screen was completed Toxicology results: Results for orders placed or performed in visit on 12/21/22 PAIN MANAGEMENT DRUG PANEL, URINE Result Value Amphetamines Screen, U Negative Benzodiazepines Screen, U Negative Cannabinoids Screen, U Negative Cocaine Metabolite Screen, U Negative Fentanyl Screen, U Negative Hydrocodone Screen, U Refer to confirmation results (A) Methadone Metabolite Screen, U Negative Morphine/Codeine Screen, U Refer to confirmation results (A) Oxycodone Screen, U Refer to confirmation results (A) Valid Interpretation Normal Creatinine, U 120 Narrative Cutoff Concentrations: Drug Level Amphetamines 500 ng/mL Benzodiazepines 100 ng/mL Cannabinoids 50 ng/mL Cocaine Metabolite 150 ng/mL Fentanyl 1 ng/mL Hydrocodone / Hydromorphone 300 ng/mL Methadone Metabolite 100 ng/mL Morphine / Codeine 300 ng/mL Oxycodone / Oxymorphone 100 ng/mL Screening results are presumptive and can only be used for medical purposes. Confirmatory testing is available upon request. Please approve if appropriate. Allen Castanon, Denys.Ph. Clinical Pharmacist [facility] [address] [place] [address], [address] [place] [address] MC: [phone] 10/04/2023,2:42 PM documented in this encounter Plan of Treatment Upcoming Encounters Date Type Department Care Team ([facility] Contact Info) Description 10/31/2023 6:10 PM EDT Pharmacy Pharmacy [address] [phone] Pharmacist2, [facility] [address] [address] Health Maintenance Due Date Last Done Comments Pneumococcal Vaccine: 65+ Years (1 of 2 - PCV) 1948 DTaP,Tdap,and Td Vaccines (1 - Tdap) 1961 Zoster Vaccines (1 of 2) 1992 COVID-19 Vaccine (1 - season) 2022 Albumin/Creatinine Ratio 12/15/2023 023, 03/24/2022, 12/09/2021, Additional history exists Diabetic Eye Exam 12/29/2023 12/28/2022, , 05/26/2020, Additional history exists Influenza Vaccine (FLU shot) (Season Ended) 2024 HbA1c 01/15/2024 07/15/2023, 03/02, 12/14/2022, Additional history exists GFR 07/14/2024 07/15/2023, 03/02, 12/14/2022, Additional history exists Diabetic Foot Exam 07/19/2024 07/20/2023, 0 06/21/2022, 06/17/2021, Additional history exists O2 ASSESSMENT COMPLETED IN PAST YEAR FOR COPD 09/15/2024 09/16/2023 Alpha-1 Antitrypsin Completed 12/14/2022 GARDASIL-HPV IMMUNIZATION SERIES Aged Out No longer eligible based on patient's age to complete this topic Hepatitis B Aged Out No longer eligi ble based on patient's age to complete this topic MENINGOCOCCAL (MENACTRA/MENVEO) Aged Out No longer eligible based on patient's age to complete this topic documented as of this encounter Medical Devices Implanted Type Area Liner Assembler Device Identifier Shelf Expiration Date Model / Serial / Lot Sut Steel 6 [id number] - [id number] Implanted:Qty: 4 on 06/18/2016 by Wicho Mason MD at OR [facility] [place] N/A: Sternum JNJ : [employer] 03/31/2021 [id number] / / [id number] Graft Marker Coronary - [id number] Implanted:Qty: 1 on 06/18/2016 by Wicho Mason MD at OR [facility] N/A: Aorta VM CARDIO VASCULAR 10/29/2017 [id number] / / [id number] documented as of this encounter Visit Diagnoses Diagnosis Chronic right-sided low back pain with right-sided sciatica documented in this encounter Advance Directives * Full Code (Latest Code Status on File) Date Activated Date Inactivated Comments 06/18/2016 1:14 PM 06/23/2016 4:44 PM This order r eflects the patients wishes and were consensually agreed upon. Question Answer Comments Discussion of Advance Directives occurred with: Patient Does the patient have a Living Will? No Does the patient have Health Care Power of Attor morelia? No * Full Code Date Activated Date Inactivated Comments 06/15/2016 6:13 PM 06/18/2016 7:28 AM This order r eflects the patients wishes and were consensually agreed upon. Question Answer Comments Discussion of Advance Directives occurred with: Patient Does the patient have a Living Will? No Does the patient have Health Care Power of Attor morelia? No Care Teams Compressor Station Chief Engineer Relationship Specialty Start Date End Date Joey Cody DO [address] [place] [phone] PCP - General Internal Medicine 12/03/20 documented as of this encounter
--- OUTSIDE RECORDS SUMMARY | 2023-11-02 14:14 | External Medical Summary | Summary of Care ---
Author Name Unknown Organization [facility] Address [address] [facility] [place] [address] Phone [phone] Care Team Providers Care Advisory Internship Name Role Phone MikaylaalberJoey Lukas Primary Care Provid er Encounter Details Date Type Department Care Team (Late st Contact Info) Description 10/24/2023 Population Health External Data Unspecified Department Allergies Active Allergy Reactions Criticality Noted Date Comments Pioglitazone Hydrochloride Other (Please comment) 11/19/2009 palpitations Erythromycin Base Rash 11/19/2009 Metformin 09/24/2011 Metformin Hcl Other (Please comment) 11/19/2009 palpitations Prednisone 11/19/2009 syncope documented as of this encounter (statuses as of 10/25/2023) Medications Medication Sig Dispensed Refills Start Date End Date Status aspirin 81 MG chewable tablet Take 1 Tablet by mouth in the morning and 1 Tablet before bedtime. With food.. 100 Tab 10/02/2018 Active Diclofenac Sodium 1 % gelIndications:Gener alized osteoarthritis apply two grams topically to affected area(s) twice daily as directed 100 g 5 01/08/2020 Active Additional Information Patient taking differently: Indications: pain, Reported on 08/20/2022 Insulin Syringe 31G X 5/16" 1 MLIndications:DM type 2, goal: symptom mgmt (HCC) Inject under the skin. Inject under skin 2 times daily as directed Dx: DM type 2, goal: symptom mgmt, E11.9 100 Each 5 02/05/2020 Active Nitroglycerin 0.4 MG Sublingual Tablet Sublingual (Nitrostat)Indicatio ns:Coronary artery disease involving tuscarora coronary artery of tuscar[place] heart without angina pectoris Place 1 Tablet under the tongue as needed for Pain, Chest. May repeat 3 times. If chest pain continues, call 911. 25 Tablet 3 05/17/2022 Active Tadalafil 20 MG Oral Tablet (Cialis)Indications: Other male erectile dysfunction Take 1 Tablet by mouth daily as needed for Erectile Dysfunction. 10 Tablet 3 12/21/2022 Active Lisinopril 5 MG Oral Tablet (Prinivil)Indication s:HTN, goal below 140/90,Dyslipidemia, goal LDL below 70,Coronary artery disease involving tuscarora coronary artery of tuscarora heart without angina pectoris Take 1 Tablet by mouth in the morning. 90 Tablet 3 12/24/2022 Active Atorvastatin Calcium 80 MG Oral Tablet (Lipitor)Indications :Dyslipidemia TAKE ONE TABLET BY MOUTH ONCE DAILY 90 Tablet 3 01/19/2023 Active Furosemide 40 MG Oral Tablet (Lasix)Indications:L ocalized edema TAKE 1 TABLET BY MOUTH ONCE DAILY IN THE MORNING 90 Tablet 1 01/20/2023 Active OneTouch Delica Lancets 33GIndications:Type 2 diabetes mellitus with diabetic peripheral angiopathy without gangrene, with long-term current use of insulin (HCC) use up to 4 times a day as directed 100 Each 5 02/15/2023 Active Blood Glucose Test Strips 333 In Vitro StripIndications:Typ e 2 diabetes mellitus with diabetic peripheral angiopathy without gangrene, with long-term current use of insulin (HCC) Use to check sugar 4 times daily 400 Strip 11 04/05/2023 Active Trulicity 4.5 MG/0.5ML Subcutaneous Solution Pen-injector (Dulaglutide) Inject 4.5 mg under the skin once a week. 6 mL 3 06/16/2023 Active Sertraline HCl 100 MG Oral Tablet (Zoloft)Indications: Recurrent major depressive disorder, in remission (HCC) TAKE 1 TABLET BY MOUTH ONCE DAILY IN THE MORNING 90 Tablet 1 08/20/2023 Active amLODIPine Besylate 5 MG Oral Tablet (Norvasc)Indications :HTN, goal below 140/90 TAKE 1 TABLET BY MOUTH ONCE DAILY IN THE MORNING 90 Tablet 1 08/20/2023 Active BD Insulin Syringe U/F 31G X 5/16" 1 ML (Insulin Syringe-Needle U-100) use twice daily with insulin DIRECTED 200 Each 3 08/31/2023 Active Ibuprofen 600 MG Oral Tablet (Motrin) TAKE 1 TABLET BY MOUTH EVERY 8 HOURS NEEDED FOR PAIN, TAKE WITH FOOD 90 Tablet 3 09/14/2023 Active Metoprolol Succinate ER 50 MG Oral Tablet Extended Release 24 Hour (toPROL XL)Indications:Coron austyn artery disease involving tuscarora coronary artery of tuscarora heart without angina pectoris TAKE ONE TABLET BY MOUTH ONCE DAILY 90 Tablet 3 09/20/2023 Active NovoLOG Mix 70/30 FlexPen (70-30) 100 UNIT/ML Suspension Pen-injector (Insulin Aspart Prot & Aspart)Indications:T ype 2 diabetes mellitus with diabetic peripheral angiopathy without gangrene, with long-term current use of insulin (HCC) Inject under the skin 2 times a day. 70 units before breakfast and 70 units before supper. 120 mL 1 09/21/2023 Active Pen [place] 32G X 6 MMIndications:Type 2 diabetes mellitus with diabetic peripheral angiopathy without gangrene, with long-term current use of insulin (HCC) Use as directed. Use to inject Novolog insulin twice a day 200 Each 1 09/21/2023 Active Trulicity 3 MG/0.5ML Subcutaneous Solution Pen-injector (Dulaglutide)Indicat ions:Type 2 diabetes mellitus with diabetic peripheral angiopathy without gangrene, with long-term current use of insulin (HCC),Type 2 diabetes mellitus with hemoglobin A1c goal of less than 8.0% (HCC) Inject 3 mg under the skin once a week. 6 mL 1 09/21/2023 Active Buprenorphine 15 MCG/HR Transdermal Patch WeeklyIndications:Sp inal stenosis of lumbar region without neurogenic claudication,Chronic bilateral low back pain with bilateral sciatica Place 1 Patch topically on the skin once a week. 4 Patch 09/30/2023 Active HYDROcodone-Acetamin ophen 10-325 MG Oral TabletIndications:Ch ronic right-sided low back pain with right-sided sciatica Take 1 Tablet by mouth every 6 hours as needed for Pain, Moderate. 120 Tablet 10/04/2023 Active tiZANidine HCl 4 MG Oral Tablet (Zanaflex)Indication s:Chronic right-sided low back pain with right-sided sciatica TAKE 1 TABLET BY MOUTH EVERY 8 HOURS NEEDED FOR MUSCLE SPASMS 90 Tablet 1 10/19/2023 Active documented as of this encounter (statuses as of 10/25/2023) Active Problems Problem Noted Date Diagnosed Date [...] as of this encounter (statuses as of 10/25/2023) Resolved Problems Problem Noted Date Diagnosed Date [...] as of this encounter (statuses as of 10/25/2023) Immunizations Name Administration Dates Next Due Pneumococcal [...] Recorded PHQ Adult Total Score 0 12/21/2022 Utilities Answer Date Recorded Do you have trouble paying y our heating, water, or electric bill? (Adult - for ages 18 years and over) Not on file 10/18/2023 Is your family able to pay t he heat, water, or electric bill? (Household - for ages 0-17 years) Not on file 10/18/2023 Does your family have access to good internet? (Household - for ages 0-17 years) Not on file 10/18/2023 Social Connections Answer Date Recorded How often do you feel lonely or isolated from those around you? (Adult - for ages 18 years and over) Not on file 10/18/2023 Sex and Gender Information Value Date Recorded [...] No 06/15/2016 documented as of this encounter Plan of Treatment Upcoming Encounters Date Type Department Care Team ([facility] Contact Info) Description 10/31/2023 6:10 PM EDT Pharmacy Pharmacy [address] [phone] Pharmacist2, [facility] [address] [address] Health Maintenance Due Date Last Done Comments Pneumococcal Vaccine: 65+ Years (1 of 2 - PCV) 1948 DTaP,Tdap,and Td Vaccines (1 - Tdap) 1961 Zoster Vaccines (1 of 2) 1992 COVID-19 Vaccine (1 - 2022- season) 2022 Albumin/Creatinine Ratio 12/15/2023 023, 03/24/2022, 12/09/2021, Additional history exists Depression Monitoring 12/22/2023 12/21/2022 Diabetic Eye Exam 12/29/2023 12/28/2022, , 05/26/2020, Additional history exists Influenza Vaccine (FLU shot) (Season Ended) 2024 HbA1c 01/15/2024 07/15/2023, 03/02, 12/14/2022, Additional history exists GFR 07/14/2024 07/15/2023, 11/1 09/2022, 12/14/2022, Additional history exists Diabetic Foot Exam [...] this encounter Medical Devices Implanted Type Area Freight Car Loader Device Identifier Shelf Expiration Date Model / Serial / Lot Sut Steel 6 M654g - [id number] Implanted:Qty: 4 on 06/18/2016 by Wicho Mason MD [place] [facility] [place] N/A: Sternum JNJ : [employer] 03/31/2021 [id number] / / [id number] Graft Marker Coronary - [id number] Implanted:Qty: 1 on 06/18/2016 by Wicho Mason MD [place] [facility] [place] N/A: Aorta VM CARDIO VASCULAR 10/29/2017 [id number] / / [id number] documented as of this encounter Advance Directives * Full Code [...] Power of Attor morelia? No Care Teams Advisory Internship Relationship Specialty Start Date End Date Joey Rose DO [address] [place] [phone] PCP - General Internal Medicine 12/03/20 documented as of this encounter
--- OUTSIDE RECORDS SUMMARY | 2023-11-02 14:14 | External Medical Summary | Summary of Care ---
Author Name Unknown Organization [facility] Address [address] [facility] [place] [address] Phone [phone] Care Team Providers Care Crop Nutrition Scientist Name Role Phone Joey Rose DO Primary Care Provid er Reason for Visit * Reason Comments Dosage Adjustment Via Phone (anticoag Cl inic) Encounter Details Date Type Department Care Team ([facility] st Contact Info) Description 10/31/2023 6:10 PM EDT Pharmacy Pharmacy [address] [phone] Pharmacist2, [facility] [address] [phone] Type 2 diabetes mellitus with diabetic peripheral angiopathy without gangrene, with long-term current use of insulin ([facility])* Allergies Active Allergy Reactions Criticality Noted Date Comments Pioglitazone Hydrochloride Other (Please comment) 11/19/2009 palpitations Erythromycin Base Rash 11/19/2009 Metformin 09/24/2011 Metformin Hcl Other (Please comment) 11/19/2009 palpitations Prednisone 11/19/2009 syncope documented as of this encounter (statuses as of 10/31/2023) Medications Medication Sig Dispensed Refills Start Date [...] Tablet Sublingual (Nitrostat)Indicatio ns: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 Place 1 Tablet [...] goal LDL below 70,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 Take 1 Tablet [...] ONCE DAILY IN THE MORNING 90 Tablet 08/20/2023 Active amLODIPine Besylate 5 MG Oral [...] FOR PAIN, TAKE WITH FOOD 90 Tablet 09/14/2023 Active Metoprolol Succinate ER 50 MG Oral Tablet Extended Release 24 Hour (toPROL XL)Indications:Coron austyn artery disease involving atka coronary artery of atka heart without angina pectoris TAKE ONE TABLET BY MOUTH ONCE DAILY 90 Tablet 09/20/2023 Active NovoLOG Mix 70/30 FlexPen (70-30) 100 UNIT/ML Suspension Pen-injector (Insulin Aspart Prot & Aspart)Indications:T ype 2 diabetes mellitus with diabetic peripheral angiopathy without gangrene, with long-term current use of insulin ([facility]) Inject under the skin 2 times a day. 70 units before breakfast and 70 units before supper. 120 mL 09/21/2023 Active Pen [place] 32G X 6 MMIndications:Type 2 diabetes mellitus with diabetic peripheral angiopathy without gangrene, with long-term current use of insulin ([facility]) Use as directed. Use to inject Novolog insulin twice a day 200 Each 09/21/2023 Active Trulicity 3 MG/0.5ML Subcutaneous Solution Pen-injector (Dulaglutide)Indicat ions:Type 2 diabetes mellitus with diabetic peripheral angiopathy without gangrene, with long-term current use of insulin ([facility]),Type 2 diabetes mellitus with hemoglobin A1c goal of less than 8.0% ([facility]) Inject 3 mg under the skin once a week. 6 mL 09/21/2023 Active Buprenorphine 15 MCG/HR Transdermal Patch [...] as of this encounter (statuses as of 10/31/2023) Active Problems Problem Noted Date Diagnosed Date [...] as of this encounter (statuses as of 10/31/2023) Resolved Problems Problem Noted Date Diagnosed Date [...] as of this encounter (statuses as of 10/31/2023) Immunizations Name Administration Dates Next Due Pneumococcal [...] No 06/15/2016 documented as of this encounter Progress Notes * Flaquita Maria PHARM Tech - 10/31/2023 9:07 AM EDT Patient Phone Numbers Left message on patients answering machine to schedule MTDM appointment for DM management. [facility] message sent --No Clinic will follow up again in 4 week(s). [Attempt # 2] Thank you, Flaquita Maria Sexer [facility] 10/31/2023, 9:07 AM documented in this encounter Plan of Treatment Upcoming Encounters Date Type Department Care Team ([facility] Contact Info) Description 11/28/2023 6:10 PM EDT Pharmacy Pharmacy [address] [phone] Pharmacist2, [address] [address] Health Maintenance Due Date Last Done Comments [...] Additional history exists Influenza Vaccine (FLU shot) (#1) 2024 HbA1c 01/15/2024 07/15/2023, 03/02, 12/14/2022, Additional [...] this encounter Medical Devices Implanted Type Area Principal Java Developer Device Identifier Shelf Expiration Date Model / Serial / Lot Jaden Jack 6 [id number] - [id number] Implanted:Qty: 4 on 06/18/2016 by Wicho Mason MD at OR [facility] N/A: Sternum JNJ : [employer] 03/31/2021 [id number] / / [id number] Graft Marker Coronary - [id number] Implanted:Qty: 1 on 06/18/2016 by Wicho Mason MD at OR [facility] N/A: Aorta VM CARDIO VASCULAR 10/29/2017 [id number] / / [id number] documented as of this encounter Visit Diagnoses Diagnosis Type 2 diabetes mellitus with diabetic peripheral angiopathy without gangrene, with long-term current use of insulin (HCC)- Primary documented in this encounter Advance Directives * [...] Power of Attor morelia? No Care Teams Crop Nutrition Scientist Relationship Specialty Start Date End Date Joey Rose DO [address] [place] [phone] PCP - General Internal Medicine 12/03/20 documented as of this encounter
--- OUTSIDE RECORDS SUMMARY | 2023-11-02 14:14 | External Medical Summary | Summary of Care ---
Author Name Unknown Organization [facility] Address [address] [facility] [place] [address] Phone [phone] Care Team Providers Care Power Press Operator Name Role Phone Joey Cody DO Primary Care Provid er Reason for Visit * Reason Onset Date Comments Medication Refill 10/31/2023 Encounter Details Date Type Department Care Team ([facility] st Contact Info) Description 10/31/2023 Refill Family [address] [phone] Joey Cody DO [address] [place] [phone] Allergies Active Allergy Reactions Criticality Noted Date [...] Tab 10/02/2018 Active Diclofenac Sodium 1 % gelIndications:Gene ralized [...] Tablet Sublingual (Nitrostat)Indicati ons:Coronary artery disease involving chilkat coronary artery of chilkat heart without angina pectoris Place 1 Tablet under the tongue as needed for Pain, Chest. May repeat 3 times. If chest pain continues, call 911. 25 Tablet 3 05/17/2022 Active Tadalafil 20 MG Oral Tablet (Cialis)Indications :Other male erectile dysfunction Take 1 Tablet by mouth daily as needed for Erectile Dysfunction. 10 Tablet 3 12/21/2022 Active Lisinopril 5 MG Oral Tablet (Prinivil)Indicatio ns:HTN, goal below 140/90,Dyslipidemia , goal LDL below 70,Coronary artery disease involving chilkat coronary artery of chilkat heart without angina pectoris Take 1 Tablet by mouth in the morning. 90 Tablet 3 12/24/2022 Active Atorvastatin Calcium 80 MG Oral Tablet (Lipitor)Indication s:Dyslipidemia TAKE ONE TABLET BY MOUTH ONCE DAILY 90 Tablet 3 01/19/2023 Active Furosemide 40 MG Oral Tablet (Lasix)Indications: Localized edema TAKE 1 TABLET BY MOUTH ONCE DAILY IN THE MORNING 90 Tablet 1 01/20/2023 Active OneTouch Delica Lancets 33GIndications:Type 2 diabetes mellitus with diabetic peripheral angiopathy without gangrene, with long-term current use of insulin ([facility]) use up to 4 times a day as directed 100 Each 5 02/15/2023 Active Blood Glucose Test Strips 333 In Vitro StripIndications:Ty pe 2 diabetes mellitus with diabetic peripheral angiopathy without gangrene, with long-term current use of insulin ([facility]) Use to check sugar 4 times daily [...] insulin DIRECTED 200 Each 3 08/31/2023 Active Metoprolol Succinate ER 50 MG Oral Tablet Extended Release 24 Hour (toPROL XL)Indications:Gabriele nary artery disease involving chilkat coronary artery of chilkat heart without angina pectoris TAKE ONE TABLET BY MOUTH ONCE DAILY 90 Tablet 3 09/20/2023 Active NovoLOG Mix 70/30 FlexPen (70-30) 100 UNIT/ML Suspension Pen-injector (Insulin Aspart Prot & Aspart)Indications: Type 2 diabetes mellitus with diabetic peripheral angiopathy without gangrene, with long-term current use of insulin ([facility]) Inject under the skin 2 times a day. 70 units before breakfast and 70 units before supper. 120 mL 1 09/21/2023 Active Pen [place] 32G X 6 MMIndications:Type 2 diabetes mellitus with diabetic peripheral angiopathy without gangrene, with long-term current use of insulin ([facility]) Use as directed. Use to inject Novolog insulin twice a day 200 Each 1 09/21/2023 Active Trulicity 3 MG/0.5ML Subcutaneous Solution Pen-injector (Dulaglutide)Indica tions:Type 2 diabetes mellitus with diabetic peripheral angiopathy without gangrene, with long-term current use of insulin ([facility]),Type 2 diabetes mellitus with hemoglobin A1c goal of less than 8.0% ([facility]) Inject 3 mg under the skin once a week. 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 4 Patch 09/30/2023 Active HYDROcodone-Acetami nophen 10-325 MG Oral TabletIndications:C [...] MUSCLE SPASMS 90 Tablet 1 10/19/2023 Active Ibuprofen 600 MG Oral Tablet (Motrin) TAKE 1 TABLET BY MOUTH EVERY 8 HOURS NEEDED FOR PAIN, TAKE WITH FOOD 90 Tablet 3 10/31/2023 Active Ibuprofen 600 MG Oral Tablet (Motrin) TAKE 1 TABLET BY MOUTH EVERY 8 HOURS NEEDED FOR PAIN, TAKE WITH FOOD 90 Tablet 3 09/14/2023 4 Discontinu ed(Refill) documented as of this encounter (statuses as [...] Telephone Encounter - Joey Cody DO - 10/31/2023 9:27 AM EDT Signed Prescriptions: Disp Refills Ibuprofen 600 MG Oral Tablet (Motrin) 90 Tab*3 Sig: TAKE 1 TABLET BY MOUTH EVERY 8 HOURS NEEDED FOR PAIN, TAKE WITH FOOD Authorizing Provider: JOEY CODY * Telephone Encounter - Bo Ba, clinical account executive - 10/31/2023 9:19 AM EDT Did you pend patient's preferred pharmacy and medication before forwarding?yes Pharmacy: [facility] [address] [facility] Pending Prescriptions: Disp Refills Ibuprofen 600 MG Oral Tablet (Motrin) 90 Tab*3 Sig: TAKE 1 TABLET BY MOUTH EVERY 8 HOURS NEEDED FOR PAIN, TAKE WITH FOOD Last Visit: 09/16/2023 (in office), Visit date not found (telemedicine) Next Visit: Visit date not found If no future appointments scheduled, and last appointment is greater than a year ago, please schedule patient for a follow-up appointment Last date the medication was ordered: 09/14/2023 Is this request for a controlled substance?No Urine Drug Screen: Results for orders placed or performed in [...] purposes. Confirmatory testing is available upon request. Patient Phone Numbers Labs: Lab Results Component Value Date/Time CREAT 0.8 07/15/2023 01:13 PM CREAT 0.8 05/26/2020 10:38 AM POTASSIUM 4.4 07/15/2023 01:13 PM POTASSIUM 4.6 05/26/2020 10:38 AM TSH 2.27 05/21/2021 10:11 AM TSH 1.29 06/17/2016 05:26 AM LDLCALC 37 12/14/2022 10:08 AM LDLCALC 28 05/26/2020 10:38 AM LDLDIRECT NOT APPLICABLE 03/02/2019 10:41 AM LDLDIRECT 105 02/13/2013 08:57 AM ALT 15 07/15/2023 01:13 PM ALT 28 05/26/2020 10:38 AM HGBA1C 6.2 (H) 07/15/2023 01:13 PM HGBA1C 8.3 (H) 05/26/2020 10:38 AM documented in this encounter Plan of Treatment Upcoming Encounters Date Type Department Care Team ([facility] Contact Info) Description 10/31/2023 6:10 PM EDT Pharmacy Pharmacy [address] [phone] Pharmacist2, [address] [phone] Type 2 diabetes mellitus with diabetic peripheral angiopathy without gangrene, with long-term current use of insulin (HCC)* 11/28/2023 6:10 PM EDT Pharmacy Pharmacy [address] [phone] Pharmacist2, [address] [address] Health Maintenance Due Date Last Done Comments [...] this encounter Medical Devices Implanted Type Area Home Inspector Device Identifier Shelf Expiration Date Model / Serial / Lot Sut Steel 6 [id number] - [id number] Implanted:Qty: 4 on 06/18/2016 by Wicho Mason MD at OR [facility] N/A: Sternum JNJ : [employer] 03/31/2021 [id number] / / [id number] Graft Marker Coronary - [id number] Implanted:Qty: 1 on 06/18/2016 by Wicho Mason MD at OR [facility] N/A: Aorta VM CARDIO VASCULAR 10/29/2017 [id number] / / [id number] documented as of this encounter Advance Directives [...] Power of Attor morelia? No Care Teams Power Press Operator Relationship Specialty Start Date End Date Joey Cody DO [address] [place] [phone] PCP - General Internal Medicine 12/03/20 documented as of this encounter
--- OUTSIDE RECORDS SUMMARY | 2023-11-02 14:14 | External Medical Summary | Summary of Care ---
Author Name Unknown Organization [facility] Address [address] [facility] [place] [address] Phone [phone] Care Team Providers Care Acoustic Sensor Operator Name Role Phone Joey Cody DO Primary Care Provid er Reason for Visit * Reason Comments eRx-Medication Refill Encounter Details Date Type Department Care Team ([facility] Contact Info) Description 10/19/2023 Refill Family [facility] [address] [place] [phone] Joey Cody DO [address] [place] [phone] Chronic right-sided low back pain with right-sided sciatica Allergies Active Allergy Reactions Criticality Noted Date Comments Pioglitazone Hydrochloride Other (Please comment) 11/19/2009 palpitations Erythromycin Base Rash 11/19/2009 Metformin 09/24/2011 Metformin Hcl Other (Please comment) 11/19/2009 palpitations Prednisone 11/19/2009 syncope documented as of this encounter (statuses as of 10/19/2023) Medications Medication Sig Dispensed Refills Start Date [...] Tablet Sublingual (Nitrostat)Indicati ons:Coronary artery disease involving confederated salish coronary artery of confederated salish heart without angina pectoris Place 1 Tablet [...] goal LDL below 70,Coronary artery disease involving confederated salish coronary artery of confederated salish heart without angina pectoris Take 1 Tablet [...] a week. 6 mL 3 4 Active Sertraline HCl 100 MG Oral [...] daily with insulin DIRECTED 200 Each 3 4 Active Ibuprofen 600 MG Oral Tablet (Motrin) TAKE 1 TABLET BY MOUTH EVERY 8 HOURS NEEDED FOR PAIN, TAKE WITH FOOD 90 Tablet 3 4 Active Metoprolol Succinate ER 50 MG Oral Tablet Extended Release 24 Hour (toPROL XL)Indications:Gabriele nary artery disease involving confederated salish coronary artery of [place]ederated salish heart without angina pectoris TAKE ONE TABLET BY MOUTH ONCE DAILY 90 Tablet 3 4 Active NovoLOG Mix 70/30 FlexPen (70-30) 100 UNIT/ML Suspension Pen-injector (Insulin Aspart Prot & Aspart)Indications: Type 2 diabetes mellitus with diabetic peripheral angiopathy without gangrene, with long-term current use of insulin ([facility]) Inject under the skin 2 times a day. 70 units before breakfast and 70 units before supper. 120 mL 1 4 Active Pen [place] 32G X 6 MMIndications:Type 2 diabetes mellitus with diabetic peripheral angiopathy without gangrene, with long-term current use of insulin ([facility]) Use as directed. Use to inject Novolog insulin twice a day 200 Each 1 4 Active Trulicity 3 MG/0.5ML Subcutaneous Solution Pen-injector (Dulaglutide)Indica tions:Type 2 diabetes mellitus with diabetic peripheral angiopathy without gangrene, with long-term current use of insulin ([facility]),Type 2 diabetes mellitus with hemoglobin A1c goal of less than 8.0% ([facility]) Inject 3 mg under the skin once a week. 6 mL 1 4 Active Buprenorphine 15 MCG/HR Transdermal Patch [...] for Pain, Moderate. 120 Tablet 4 Active tiZANidine HCl 4 MG Oral Tablet (Zanaflex)Indicatio ns:Chronic right-sided low back pain with right-sided sciatica TAKE 1 TABLET BY MOUTH EVERY 8 HOURS NEEDED FOR MUSCLE SPASMS 90 Tablet 1 4 Active tiZANidine HCl 4 MG Oral Tablet (Zanaflex)Indicatio ns:Chronic right-sided low back pain with right-sided sciatica Take 1 Tablet by mouth every 8 hours as needed for Muscle spasms. 90 Tablet 1 4 10/19/19 24 Discontinued documented as of this encounter (statuses as of 10/19/2023) Active Problems Problem Noted Date Diagnosed Date [...] as of this encounter (statuses as of 10/19/2023) Resolved Problems Problem Noted Date Diagnosed Date [...] as of this encounter (statuses as of 10/19/2023) Immunizations Name Administration Dates Next Due Pneumococcal [...] Telephone Encounter - Joey Cody DO - 10/19/2023 2:56 PM EDT Signed Prescriptions: Disp Refills tiZANidine HCl 4 MG Oral Tablet (Zanaflex) 90 Tab*1 Sig: TAKE 1 TABLET BY MOUTH EVERY 8 HOURS NEEDED FOR MUSCLE SPASMS Authorizing Provider: JOEY CODY * Telephone Encounter - Minda Bledsoe, [facility] - 10/19/2023 2:52 PM EDT Pending Prescriptions: Disp Refills tiZANidine HCl 4 MG Oral Tablet [Pharmacy *90 Tab*1 Sig: Take 1 Tablet by mouth every 8 hours as needed for Muscle spasms. * Telephone Encounter - Minda Bledsoe, [facility] - 10/19/2023 2:52 PM EDT [facility] is currently not authorized to approve refills for the pended medication(s) per refill protocol. Please approve if appropriate. Pending Prescriptions: Disp Refills tiZANidine HCl 4 MG Oral Tablet [Pharmacy *90 Tab*1 Sig: Take 1 Tablet by mouth every 8 hours as needed for Muscle spasms. Last Visit: 09/16/2023 (in office), Visit date not found (telemedicine) Next Visit: Visit date not found If no future appointments scheduled, and last appointment is greater than a year ago, please schedule patient for a follow-up appointment Last date the medication was ordered: 08/01/23 Pharmacy: [facility] Is this request for a controlled substance? No Urine Drug Screen: Results for orders placed [...] Upcoming Encounters Date Type Department Care Team ([facility] st Contact Info) Description 10/31/2023 6:10 PM EDT Pharmacy Pharmacy [address] [phone] Pharmacist2, [facility] [address] [address] Health Maintenance Due Date Last Done Comments Pneumococcal Vaccine: 65+ Years (1 of 2 - PCV) 1946 DTaP,Tdap,and Td Vaccines (1 - Tdap) 1961 Zoster Vaccines (1 of 2) 1992 COVID-19 Vaccine ( season) 2022 Albumin/Creatinine Ratio 12/15/2023 023, 03/24/2022, [...] this encounter Medical Devices Implanted Type Area Auctioneer Art Device Identifier Shelf Expiration Date Model / Serial / Lot Sut Steel 6 [id number] - [id number] Implanted:Qty: 4 on 06/18/2016 by Wicho Mason MD at OR [facility] [place] [facility] N/A: Sternum JNJ : [employer] 03/31/2021 [id number] / / [id number] Graft Marker Coronary - [id number] Implanted:Qty: 1 on 06/18/2016 by Wicho Mason MD at OR [facility] [place] N/A: Aorta VM CARDIO VASCULAR 10/29/2017 [id number] / / [id number] documented as of this encounter Visit Diagnoses [...] Power of Attor morelia? No Care Teams Acoustic Sensor Operator Relationship Specialty Start Date End Date Joey Cody DO [address] [place] [phone] PCP - General Internal Medicine 12/03/20 documented as of this encounter
--- OUTSIDE RECORDS SUMMARY | 2023-11-02 14:15 | External Medical Summary | Summary of Care ---
Author Name Unknown Organization [facility] Address [address] [facility] [place] [address] Phone [phone] Care Team Providers Care Pollution Control Chemist Name Role Phone Joey Rose DO Primary Care Provid er Reason for Visit * Reason Comments Acute Encounter Details Date Type Department Care Team ([facility] Contact Info) Description 09/16/2023 11:20 AM EDT Office Visit Family [facility] [address] [place] [address] Mary Henderson PA-C [address] [place] [address] Type 2 diabetes mellitus with hemoglobin A1c goal of less than 8.0% ([facility])*; Severe obesity with body mass index (BMI) of 35.0 to 39.9 with serious comorbidity (HCC) Allergies Active Allergy Reactions Criticality Noted Date [...] Tab 9 Active Diclofenac Sodium 1 % gelIndications:Gen eralized osteoarthritis apply two grams topically to affected [...] Active Nitroglycerin 0.4 MG Sublingual Tablet Sublingual (Nitrostat)Indicat ions: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 May repeat 3 times. If chest pain continues, call 911. 25 Tablet 3 3 Active Tadalafil 20 MG Oral Tablet (Cialis)Indication s:Other male erectile dysfunction Take 1 Tablet by mouth daily as needed for Erectile Dysfunction. 10 Tablet 3 3 Active Lisinopril 5 MG Oral Tablet (Prinivil)Indicati ons:HTN, goal below 140/90,Dyslipidemi a, goal LDL below 70,Coronary artery disease involving red cliff coronary artery of red cliff heart without angina pectoris Take 1 Tablet by mouth in the morning. 90 Tablet 3 3 Active Atorvastatin Calcium 80 MG Oral Tablet (Lipitor)Indicatio ns:Dyslipidemia TAKE ONE TABLET BY MOUTH ONCE DAILY 90 Tablet 3 3 Active Furosemide 40 MG Oral Tablet (Lasix)Indications :Localized edema TAKE 1 TABLET BY MOUTH ONCE DAILY IN THE MORNING 90 Tablet 1 3 Active OneTouch Delica Lancets 33GIndications:Typ e 2 diabetes mellitus with diabetic peripheral angiopathy without gangrene, with long-term current use of insulin (HCC) use up to 4 times a day as directed 100 Each 5 3 Active Blood Glucose Test Strips 333 In Vitro StripIndications:T ype 2 diabetes mellitus with diabetic peripheral angiopathy without gangrene, with long-term current use of insulin (HCC) Use to check sugar 4 times daily 400 Strip 11 3 Active Trulicity 4.5 MG/0.5ML Subcutaneous Solution Pen-injector (Dulaglutide) Inject 4.5 mg under the skin once a week. 6 mL 3 4 Active tiZANidine HCl 4 MG Oral Tablet (Zanaflex)Indicati ons:Chronic right-sided low back pain with right-sided sciatica Take 1 Tablet by mouth every 8 hours as needed for Muscle spasms. 90 Tablet 1 4 Active HYDROcodone-Acetam inophen 10-325 MG Oral TabletIndications: Chronic right-sided low back pain with right-sided sciatica Take 1 Tablet by mouth every 6 hours as needed for Pain, Moderate. 120 Tablet 4 Active Sertraline HCl 100 MG Oral Tablet (Zoloft)Indication s:Recurrent major depressive disorder, in remission (HCC) TAKE 1 TABLET BY MOUTH ONCE DAILY IN THE MORNING 90 Tablet 1 4 Active amLODIPine Besylate 5 MG Oral Tablet (Norvasc)Indicatio ns:HTN, goal below 140/90 TAKE 1 TABLET BY [...] WITH FOOD 90 Tablet 3 4 Active NovoLIN 70/30 (70-30) 100 UNIT/ML Subcutaneous Suspension (Insulin NPH Isophane & Regular) INJECT 55 UNITS UNDER THE SKIN TWICE DAILY, BEFORE BREAKFAST AND DINNER. 60 mL 3 3 024 Discontinued(Re fill) Metoprolol Succinate ER 50 MG Oral Tablet Extended Release 24 Hour (toPROL XL)Indications:Cor onary artery disease involving [place] coronary artery of [place] cliff heart without angina pectoris TAKE ONE TABLET BY MOUTH ONCE DAILY 90 Tablet 4 024 Discontinued Buprenorphine 15 MCG/HR Transdermal Patch WeeklyIndications: Spinal stenosis of lumbar region without neurogenic claudication,Chron ic bilateral low back pain with bilateral sciatica Place 1 Patch topically on the skin once a week. 4 Patch 4 024 Discontinued(Re fill) NovoLIN 70/30 (70-30) 100 UNIT/ML Subcutaneous Suspension (Insulin NPH Isophane & Regular) INJECT 70 UNITS UNDER THE SKIN TWICE DAILY, BEFORE BREAKFAST AND DINNER. 4 024 Discontinued NovoLIN 70/30 (70-30) 100 UNIT/ML Subcutaneous Suspension (Insulin NPH Isophane & Regular) INJECT 70 UNITS UNDER THE SKIN TWICE DAILY, BEFORE BREAKFAST AND DINNER. 60 mL 3 4 024 Discontinued(Ca dication List Clean Up) documented as of this encounter (statuses as [...] on file documented as of this encounter Last Filed Vital Signs Vital Sign Reading Time Taken Comments Blood Pressure 108/68 09/16/2023 11:30 AM EDT Pulse 77 09/16/2023 11:30 AM EDT Temperature 36.9 C (98.4 F) 09/16/2023 1 1:30 AM EDT Respiratory Rate 16 09/16/2023 11:3 0 AM EDT Oxygen Saturation 92% 09/16/2023 11: 30 AM EDT Inhaled Oxygen Concentration - - Weight 111.5 kg (245 lb 12.8 oz) 2023 11:30 AM EDT Height 170.2 cm (5' 7") 09/16/2023 11:3 0 AM EDT Body Mass Index 38.5 09/16/2023 11:30 AM EDT documented in this encounter Functional Status Functional Status Response [...] as of this encounter Progress Notes * Mary Henderson PA-C - 09/16/2023 11:44 AM EDT Images from the original note were not included. History of Present Illness Samuel Roman is a 83 year old male that presents for Acute Complains of poorly controlled BS. Sugars running 150 - 200. Insulin reduced from 70 units to 52 units in June. He increased dose back to 72 units. Last A1C in June was 6.2%. The ASCVD Risk score (Nico CALABRESE, et al., 2019) failed to calculate for the following reasons: The 2019 ASCVD risk score is only valid for ages 40 to 79 The patient has a prior [place] or stroke diagnosis Physical Exam Vitals: 09/16/23 1130 Temp: 36.9 C (98.4 F) Pulse: 77 Resp: 16 SpO2: 92% BP: 108/68 BMI: 38.49 BP Readings from Last 3 Encounters: 09/16/23 108/68 07/20/23 132/74 04/06/23 118/72 Wt Readings from Last 3 Encounters: 09/16/23 111.5 kg (245 lb 12.8 oz) 07/20/23 113.3 kg (249 lb 12.8 oz) 04/06/23 117.1 kg (258 lb 3.2 oz) BMI Readings from Last 3 Encounters: 09/16/23 38.50 kg/m 07/20/23 39.12 kg/m 04/06/23 40.44 kg/m Physical Exam Vitals and nursing note reviewed. Constitutional: General: He is not in acute distress. Appearance: Normal appearance. He is obese. HENT: Head: Normocephalic and atraumatic. Cardiovascular: Rate and Rhythm: Normal rate. Pulmonary: Effort: No respiratory distress. Skin: General: Skin is warm. Neurological: Mental Status: He is alert and oriented to person, place, and time. I have reviewed the following results: CMP and Hemoglobin A1C Assessment and Plan 1. Type 2 diabetes mellitus with hemoglobin A1c goal of less than 8.0% (HCC) 2. Severe obesity with body mass index (BMI) of 35.0 to 39.9 with serious comorbidity (HCC) Discussed with MTM. Pt agrees to continue DM clinic. Cont current tx. Wrap-Up Follow Up: Return for Return with Physician. | For: Return with Physician Time: I spent a total of 30-39 minutes (exact time 30 mins) on the date of service in preparation, delivery, and documentation of the care provided to Samuel Roman excluding any time spent in the performance of separately billed services. The above was discussed and understanding was expressed. Mary Henderson PA-C [address] [phone] documented in this encounter Nursing Notes * Radha Woodward LPN - 09/16/2023 11:27 AM EDT The patient has been properly identified by confirmation of name and date of . Chief Complaint Patient presents with Acute Pt here for for blood sugars running high since dose change of insulin. Running around 150-200. 06/16/23 Floridalma reduced insulin to 52 unit BID d/t trulicity dose increase. Sugars were well controlled at that time. Was on 70 units BID prior. Has not checked sugar today. He will not see Floridalma again. Would be willing to see Brii, but his daughters are trying to get him in to see their doctor. documented in this encounter Plan of Treatment Upcoming Encounters Date Type Department Care Team ([facility] Contact Info) Description 10/31/2023 6:10 PM EDT Pharmacy Pharmacy [address] [phone] Pharmacist2, [facility] [address] [address] Health Maintenance Due Date Last Done Comments [...] this encounter Medical Devices Implanted Type Area Air Brush Artist Device Identifier Shelf Expiration Date Model / Serial / Lot Sut Steel 6 M654g - [id number] Implanted:Qty: 4 on 06/18/2016 by Wicho Mason MD at OR [facility] N/A: Sternum JNJ : [employer] 03/31/2021 [id number] / / [id number] Graft Marker Coronary - [id number] Implanted:Qty: 1 on 06/18/2016 by Wicho Mason MD at OR [facility] N/A: Aorta VM CARDIO VASCULAR 10/29/2017 [id number] / / [id number] documented as of this encounter Visit Diagnoses Diagnosis Type 2 diabetes mellitus with hemoglobin A1c goal of less than 8.0% (HCC)- Primary Severe obesity with body mass index (BMI) of 35.0 to 39.9 with serious comorbidity (HCC) documented in this encounter Advance Directives * [...] Power of Attor morelia? No Care Teams Pollution Control Chemist Relationship Specialty Start Date End Date Joey Rose DO [address] [place] [phone] PCP - General Internal Medicine 12/03/20 documented as of this encounter
--- OUTSIDE RECORDS SUMMARY | 2023-11-02 14:15 | External Medical Summary | Summary of Care ---
Author Name Unknown Organization [facility] Address [address] [facility] [place] [address] Phone [phone] Care Team Providers Care Technical Sales Associate Name Role Phone Joey Rose DO Primary Care Provid er Reason for Visit * Reason Onset Date Comments Medication Refill 09/19/2023 Encounter Details Date Type Department Care Team ([facility] st Contact Info) Description 09/19/2023 Telephone Family Practice [address] [phone] Joey Rose DO [address] [place] [address] Medication Refill Allergies Active Allergy Reactions Criticality Noted Date Comments Pioglitazone Hydrochloride Other (Please comment) 11/19/2009 palpitations Erythromycin Base Rash 11/19/2009 Metformin 09/24/2011 Metformin Hcl Other (Please comment) 11/19/2009 palpitations Prednisone 11/19/2009 syncope documented as of this encounter (statuses as of 09/22/2023) Medications Medication Sig Dispensed Refills Start Date [...] Tablet Sublingual (Nitrostat)Indicat ions:Coronary artery disease involving [place] coronary artery of [place] heart without angina pectoris Place 1 Tablet [...] goal LDL below 70,Coronary artery disease involving [place] coronary artery of [place] heart without angina pectoris Take 1 Tablet [...] insulin DIRECTED 200 Each 3 4 Active Buprenorphine 15 MCG/HR Transdermal Patch WeeklyIndications: Spinal stenosis of lumbar region without neurogenic claudication,Chron ic bilateral low back pain with bilateral sciatica Place 1 Patch topically on the skin once a week. 4 Patch 4 Active Ibuprofen 600 MG Oral Tablet (Motrin) TAKE 1 TABLET BY MOUTH EVERY 8 HOURS NEEDED FOR PAIN, TAKE WITH FOOD 90 Tablet 3 4 Active Metoprolol Succinate ER 50 MG Oral Tablet Extended Release 24 Hour (toPROL XL)Indications:Cor onary artery disease involving [place] coronary artery of [place] heart without angina pectoris TAKE ONE TABLET BY MOUTH ONCE DAILY 90 Tablet 4 024 Discontinued NovoLIN 70/30 (70-30) 100 UNIT/ML Subcutaneous Suspension (Insulin NPH Isophane & Regular) INJECT 70 UNITS UNDER THE SKIN TWICE DAILY, BEFORE BREAKFAST AND DINNER. 60 mL 3 4 024 Discontinued(Ky dication List Clean Up) Insulin NPH Isophane & Regular (70-30) 100 UNIT/ML Subcutaneous Suspension (NovoLIN 70/30)Indications: Type 2 diabetes mellitus with diabetic peripheral angiopathy without gangrene, with long-term current use of insulin (HCC) Inject under the skin 2 times a day. 70 units before breakfast and 70 units before supper. 60 mL 3 4 024 Discontinued(Me dication/Dose Changed) documented as of this encounter (statuses as of 09/22/2023) Active Problems Problem Noted Date Diagnosed Date Chronic pain syndrome 03/22/2023 Recurrent major depressive disorder, in remissio n 07/24/2021 Essential tremor 06/17/2021 Epididymal cyst 06/17/2021 Hyperlipidemia associated with type 2 diabetes m ellitus 06/17/2021 Ischemic cardiomyopathy 06/17/2021 Spinal stenosis of [...] with long-term current use of insulin 07/04/2012 documented as of this encounter (statuses as of 09/22/2023) Resolved Problems Problem Noted Date Diagnosed Date Resolved Date Morbid obesity with BMI of 40.0-44.9, adult [...] 130/80 12/10/200912/22 Overview: Per HTN Protocol #27. Type 2 diabetes mellitus wit h hemoglobin A1c goal of 7.0%-8.0% 12/10/2009 07/04/2012 Overview: ICD-10 update of inactive term documented as of this encounter (statuses as of 09/22/2023) Immunizations Name Administration Dates Next Due Pneumococcal [...] encounter Miscellaneous Notes * Telephone Encounter - Lizeth Bullard LPN - 09/22/2023 9:23 AM EDT Called and spoke with daughter Alexia who is listed as a contact. Pt aware and pharmacy will be filling new insulin prescription today. Daughter asking for weight loss referral for patient, specifically for Dr. Balderas in [place]. * Telephone Encounter - Joey Rose DO - 09/19/2023 4:57 PM EDT Humulin 70/30 sent to pharmacy. Other option would be to use pens * Telephone Encounter - Cass Mercedes foil stamp operator - 09/19/2023 4:36 PM EDT RE NovoLIN 70/30 (70-30) 100 UNIT/ML Subcutaneous Suspension (Insulin NPH Isophane & Regular This is on temporary back order Pharmacy is requesting a new script for Humulin vials To cover the patient during this back order time Please send new script if appropriate Thank you for your assistance Cass Mercedes Front Maker II [facility] ([facility]) (Formerly Tele[facility]) 09/19/2023,4:37 PM documented in this encounter Plan of Treatment Upcoming Encounters Date Type Department Care Team ([facility] Contact Info) Description 09/30/2023 9:00 AM EDT Office Visit Pharmacy [address] [phone] Pharmacist2, [address] [address] Health Maintenance Due Date Last Done Comments [...] this encounter Medical Devices Implanted Type Area Manufacturing Maintenance Mechanic Device Identifier Shelf Expiration Date Model / Serial / Lot Sut Steel 6 M654g - [id number] Implanted:Qty: 4 on 06/18/2016 by Wicho Mason MD at [place] [facility] [place] N/A: Sternum JNJ : [employer] 03/31/2021 [id number] / / [id number] Graft Marker Coronary - [id number] Implanted:Qty: 1 on 06/18/2016 by Wicho Mason MD at OR [facility] N/A: Aorta VM CARDIO VASCULAR 10/29/2017 [id number] / / [id number] documented as of this encounter Visit Diagnoses [...] Power of Attor morelia? No Care Teams Technical Sales Associate Relationship Specialty Start Date End Date Joey Rose DO [address] [place] [address] PCP - General Internal Medicine 12/03/20 documented as of this encounter
--- OUTSIDE RECORDS SUMMARY | 2023-11-02 14:15 | External Medical Summary | Summary of Care ---
Author Name Unknown Organization [facility] Address [address] [facility] [place] [address] Phone [phone] Care Team Providers Care Clay Puddler Name Role Phone Joey Cody DO Primary Care Provid er Reason for Referral * Evaluate & Treat - Unlimited Visits (Within 10 days (routine)) - Authorized Specialty Diagnoses / Procedures Referred By Contact Referred To Contact GI NUTRITION/IM / Gastroenterology Diagnoses Severe obesity with body mass index (BMI) of 35.0 to 39.9 with serious comorbidity (HCC) Joey Cody DO [address] [place] [address] Referral ID Status Reason Start Date Expiration Date Visits Requested Visits Authorized [id number] Authorized Specialty Services Required 09/23/[phone] Question Answer Referral Priority Within 10 days (routine) [facility] this [facility] be scheduled[facility] For what condition is the patient being seen? Obesity Comments Dr Balderas Reason for Visit * Reason Onset Date Comments Medication Refill 09/19/2023 Encounter Details Date Type Department Care Team ([facility] Contact Info) Description 09/19/2023 Telephone Family Practice [address] [phone] Joey Cody DO [address] [place] [address] Medication Refill Allergies Active Allergy Reactions Criticality Noted Date Comments Pioglitazone Hydrochloride Other (Please comment) 11/19/2009 palpitations Erythromycin Base Rash 11/19/2009 Metformin 09/24/2011 Metformin Hcl Other (Please comment) 11/19/2009 palpitations Prednisone 11/19/2009 syncope documented as of this encounter (statuses as of 09/23/2023) Medications Medication Sig Dispensed Refills Start Date [...] Tablet Sublingual (Nitrostat)Indicat ions:Coronary artery disease involving [place] coronary artery of [place] heart without angina pectoris Place 1 Tablet [...] goal LDL below 70,Coronary artery disease involving [place] coronary artery of [place] heart without angina pectoris Take 1 Tablet [...] Hour (toPROL XL)Indications:Cor onary artery disease involving [place] coronary artery of [place] heart without angina pectoris TAKE ONE TABLET BY MOUTH ONCE DAILY 90 Tablet 4 024 Discontinued NovoLIN 70/30 (70-30) 100 UNIT/ML Subcutaneous Suspension (Insulin NPH Isophane & Regular) INJECT 70 UNITS UNDER THE SKIN TWICE DAILY, BEFORE BREAKFAST AND DINNER. 60 mL 3 4 024 Discontinued(Me dication List Clean Up) Insulin NPH Isophane [...] as of this encounter (statuses as of 09/23/2023) Active Problems Problem Noted Date Diagnosed Date [...] as of this encounter (statuses as of 09/23/2023) Resolved Problems Problem Noted Date Diagnosed Date [...] as of this encounter (statuses as of 09/23/2023) Immunizations Name Administration Dates Next Due Pneumococcal [...] as of this encounter Miscellaneous Notes * Addendum Note - Joey Cody DO - 09/23/2023 6:53 AM EDTAddended by: JOEY CODY on: 09/23/2023 06:53 AM Modules accepted: Orders * Telephone Encounter - Joey Cody DO - 09/23/2023 6:53 AM EDT GI nutrition referral placed. Made note for Dr. Balderas however this provider did not show up in list * Telephone Encounter - Lizeth Bullard LPN - 09/22/2023 9:23 AM EDT Called and spoke with daughter Alexia who is listed as a contact. Pt aware and pharmacy will be filling new insulin prescription today. Daughter asking for weight loss referral for patient, specifically for Dr. Balderas in [place]. * Telephone Encounter - Joey Cody DO - 09/19/2023 4:57 PM EDT Humulin 70/30 sent to pharmacy. Other option would be to use pens * Telephone Encounter - Cass Mercedes PHARM Tech - 09/19/2023 4:36 PM EDT RE NovoLIN 70/30 (70-30) 100 UNIT/ML Subcutaneous Suspension (Insulin NPH Isophane & Regular This is on temporary back order Pharmacy is requesting a new script for Humulin vials To cover the patient during this back order time Please send new script if appropriate Thank you for your assistance Cass Mercedes Boat Joiner II [facility] ([facility]) (Formerly Telepharmacy) 09/19/2023,4:37 PM documented in this encounter Plan of Treatment Upcoming Encounters Date Type Department Care Team ([facility] st Contact Info) Description 09/30/2023 9:00 AM EDT Office Visit Pharmacy [address] [phone] Pharmacist2, [facility] [address] [address] Scheduled Referrals Name Type Priority Associated Diagnoses Orde r Schedule GI NUTRITION REFERRAL OP Referral Within 10 days (routine) Severe obesity with body mass index (BMI) of 35.0 to 39.9 with serious comorbidity (HCC) Ordered: 09/23/2023 Health Maintenance Due Date Last Done Comments [...] this encounter Medical Devices Implanted Type Area Cartography Technician Device Identifier Shelf Expiration Date Model / Serial / Lot Sut Steel 6 M654g - [id number] Implanted:Qty: 4 on 06/18/2016 by Wicho Mason MD at [place] [facility] [place] N/A: Sternum JN[employer] : [employer] 03/31/2021 M654G / / [id number] Graft Marker Coronary - [id number] Implanted:Qty: 1 on 06/18/2016 by Wicho Mason MD at [place] [facility] [place] N/A: Aorta VM CARDIO VASCULAR 10/29/2017 [id number] / / [id number] documented as of this encounter Visit Diagnoses Diagnosis Type 2 diabetes mellitus with diabetic peripheral angiopathy without gangrene, with long-term current use of insulin (HCC)- Primary Severe obesity with body mass [...] Power of Attor morelia? No Care Teams Clay Puddler Relationship Specialty Start Date End Date Joey Cody DO [address] [place] [address] PCP - General Internal Medicine 12/03/20 documented as of this encounter
--- OUTSIDE RECORDS SUMMARY | 2023-11-02 14:15 | External Medical Summary | Summary of Care ---
Author Name Unknown Organization [facility] Address [address] [facility] [place] [address] Phone [phone] Care Team Providers Care Psychologist Clinical Name Role Phone Joey Cody DO Primary Care Provid er Reason for Referral * Evaluate & Treat - Unlimited Visits (Within 10 days (routine)) - Authorized Specialty Diagnoses / Procedures Referred By Contact Referred To Contact GI NUTRITION/IM / Gastroenterology Diagnoses Severe obesity with body mass index (BMI) of 35.0 to 39.9 with serious comorbidity (HCC) Joye Cody DO [address] [place] [address] Referral ID Status Reason Start Date Expiration Date Visits Requested Visits Authorized [id number] Authorized Specialty Services Required 09/23/2023 999 999 Question Answer Referral Priority Within 10 days (routine) Where should this appointment be scheduled[facility] For what condition is the patient being seen? Obesity Comments Dr Balderas Reason for Visit * Reason Onset Date Comments Medication Refill 09/19/2023 Encounter Details Date Type Department Care Team ([facility] Contact Info) Description 09/19/2023 Telephone Family Practice [address] [phone] Joey Cody DO [address] [place] [address] Medication Refill Allergies Active Allergy Reactions Criticality [...] Tablet Sublingual (Nitrostat)Indicat ions:Coronary artery disease involving [place] coronary artery of [place] heart without angina pectoris Place 1 Tablet [...] goal LDL below 70,Coronary artery disease involving [place] coronary artery of [place] heart without angina pectoris Take 1 Tablet [...] Hour (toPROL XL)Indications:Cor onary artery disease involving [place] coronary artery of [place] heart without angina pectoris TAKE ONE TABLET [...] encounter Miscellaneous Notes * Telephone Encounter - Janell Beckett LPN - 09/23/2023 2:15 PM EDT Spoke with daughter. States that its Dr. Monteiro in [place], [place]: [facility] Service of [address] [address] Made daughter aware that referral will be faxed to number above as well as supporting OV notes. Daughter verbalized understanding. * Addendum Note - Joey Cody DO [...] for patient, specifically for Dr. Balderas in [place]. * Telephone Encounter - Joey Cody DO - 09/19/2023 4:57 PM EDT Humulin 70/30 sent to pharmacy. Other option would be to use pens * Telephone Encounter - Cass Mercedes er rn - 09/19/2023 4:36 PM EDT RE NovoLIN 70/30 (70-30) 100 UNIT/ML Subcutaneous Suspension (Insulin NPH Isophane & Regular This is on temporary back order Pharmacy is requesting a new script for Humulin vials To cover the patient during this back order time Please send new script if appropriate Thank you for your assistance Cass Mercedes Damage Cutter II [facility] ([facility]) (Formerly Telepharmacy) 09/19/2023,4:37 PM documented in this encounter Plan of Treatment Upcoming Encounters Date Type Department Care Team ([facility] Contact Info) Description 09/30/2023 9:00 AM EDT Office Visit Pharmacy [address] [phone] Pharmacist2, [address] [address] Scheduled Referrals Name Type Priority Associated Diagnoses [...] this encounter Medical Devices Implanted Type Area Beamer Operator Device Identifier Shelf Expiration Date Model / Serial / Lot Jaden Jack 6 [id number] - [id number] Implanted:Qty: 4 on 06/18/2016 by Wicho Mason MD at OR [facility] [place] N/A: Sternum JNJ : [employer] 03/31/2021 [id number] / / [id number] Graft Marker Coronary - [id number] Implanted:Qty: 1 on 06/18/2016 by Wicho Mason MD at OR [facility] [place] N/A: Aorta VM CARDIO VASCULAR 10/29/2017 [id number] / / [id number] documented as of this encounter Visit Diagnoses [...] Power of Attor morelia? No Care Teams Psychologist Clinical Relationship Specialty Start Date End Date Joey Cody DO [address] [place] [address] PCP - General Internal Medicine 12/03/20 documented as of this encounter
--- OUTSIDE RECORDS SUMMARY | 2023-11-02 14:15 | External Medical Summary | Summary of Care ---
Author Name Unknown Organization [facility] Address [address] [facility] [place] [address] Phone [phone] Care Team Providers Care Pan Helper Name Role Phone Joey Rose DO Primary Care Provid er Reason for Visit * Reason Comments eRx-Medication Refill Encounter Details Date Type Department Care Team ([facility] st Contact Info) Description 09/28/2023 Refill Family Practice [facility] [address] [place] [address] Joey Rose DO [address] [place] [address] Spinal stenosis of lumbar region without neurogenic claudication; Chronic bilateral low back pain with bilateral sciatica Allergies Active Allergy Reactions Criticality Noted Date Comments Pioglitazone Hydrochloride Other (Please comment) 11/19/2009 palpitations Erythromycin Base Rash 11/19/2009 Metformin 09/24/2011 Metformin Hcl Other (Please comment) 11/19/2009 palpitations Prednisone 11/19/2009 syncope documented as of this encounter (statuses as of 09/29/2023) Medications Medication Sig Dispensed Refills Start Date [...] Tablet Sublingual (Nitrostat)Indicatio ns:Coronary artery disease involving [place] coronary artery of [place] heart without angina pectoris Place 1 Tablet [...] goal LDL below 70,Coronary artery disease involving [place] coronary artery of [place] heart without angina pectoris Take 1 Tablet [...] a week. 6 mL 3 06/16/2023 Active tiZANidine HCl 4 MG Oral Tablet (Zanaflex)Indication s:Chronic right-sided low back pain with right-sided sciatica Take 1 Tablet by mouth every 8 hours as needed for Muscle spasms. 90 Tablet 1 08/01/2023 Active HYDROcodone-Acetamin ophen 10-325 MG Oral TabletIndications:Ch ronic right-sided low back pain with right-sided sciatica Take 1 Tablet by mouth every 6 hours as needed for Pain, Moderate. 120 Tablet 08/21/2023 Active Sertraline HCl 100 MG Oral Tablet [...] insulin DIRECTED 200 Each 3 08/31/2023 Active Buprenorphine 15 MCG/HR Transdermal Patch WeeklyIndications:Sp inal stenosis of lumbar region without neurogenic claudication,Chronic bilateral low back pain with bilateral sciatica Place 1 Patch topically on the skin once a week. 4 Patch 09/02/2023 Active Ibuprofen 600 MG Oral Tablet (Motrin) TAKE 1 TABLET BY MOUTH EVERY 8 HOURS NEEDED FOR PAIN, TAKE WITH FOOD 90 Tablet 3 09/14/2023 Active Metoprolol Succinate ER 50 MG Oral Tablet Extended Release 24 Hour (toPROL XL)Indications:Coron austyn artery disease involving [place] coronary artery of [place] heart without angina pectoris TAKE ONE TABLET BY MOUTH ONCE DAILY 90 Tablet 3 09/20/2023 Active NovoLOG Mix 70/30 FlexPen (70-30) 100 UNIT/ML Suspension Pen-injector (Insulin Aspart Prot & Aspart)Indications:T ype 2 diabetes mellitus with diabetic peripheral angiopathy without gangrene, with long-term current use of insulin ([facility]) Inject under the skin 2 times a day. 70 units before breakfast and 70 units before supper. 120 mL 1 09/21/2023 Active Pen [place] 32G X 6 MMIndications:Type 2 diabetes mellitus with diabetic peripheral angiopathy without gangrene, with long-term current use of insulin ([facility]) Use as directed. Use to inject [...] a week. 6 mL 1 09/21/2023 Active documented as of this encounter (statuses as of 09/29/2023) Active Problems Problem Noted Date Diagnosed Date [...] as of this encounter (statuses as of 09/29/2023) Resolved Problems Problem Noted Date Diagnosed Date [...] as of this encounter (statuses as of 09/29/2023) Immunizations Name Administration Dates Next Due Pneumococcal [...] encounter Miscellaneous Notes * Telephone Encounter - Dre Holloway [facility] - 09/29/2023 4:15 PM EDT Refused Prescriptions: Disp Refills Buprenorphine 15 MCG/HR Transdermal Patch *4 Patch0 Sig: Place 1 Patch topically on the skin once a week.Refused By: DRE HOLLOWAY MReason for Refusal: Duplicate Request documented in this encounter Plan of Treatment Health Maintenance Due Date Last Done Comments [...] this encounter Medical Devices Implanted Type Area Boot Trimmer Device Identifier Shelf Expiration Date Model / Serial / Lot Sut Steel 6 M654g - [id number] Implanted:Qty: 4 on 06/18/2016 by Wicho Mason [place] [facility] [place]A: Sternum JNJ : [employer] 03/31/2021 [id number] / / [id number] Graft Marker Coronary - [id number] Implanted:Qty: 1 on 06/18/2016 by Wicho Mason MD [place] [facility] [place]A: Aorta VM CARDIO VASCULAR 10/29/2017 [id number] / / [id number] documented as of this encounter Visit Diagnoses Diagnosis Spinal stenosis of lumbar region without neurogenic claudication Spinal stenosis, lumbar region, without neurogenic claudication Chronic bilateral low back pain with bilateral sciatica documented in this encounter Advance Directives [...] Power of Attor morelia? No Care Teams Pan Helper Relationship Specialty Start Date End Date Joey Rose DO [address] [place] [address] PCP - General Internal Medicine 12/03/20 documented as of this encounter
--- OUTSIDE RECORDS SUMMARY | 2023-11-02 14:15 | External Medical Summary | Summary of Care ---
Author Name Unknown Organization [facility] Address [address] [facility] [place] [address] Phone [phone] Care Team Providers Care Concert Or Lecture Hall Manager Name Role Phone Joey Cody DO Primary Care Provid er Reason for Visit * Reason Onset Date Comments Medication Refill 09/28/2023 Encounter Details Date Type Department Care Team ([facility] st Contact Info) Description 09/28/2023 Refill Family Practice [address] [phone] Joey Cody DO [address] [place] [address] Spinal stenosis of lumbar region without neurogenic claudication; Chronic bilateral low back pain with bilateral sciatica Allergies Active Allergy Reactions Criticality Noted Date Comments Pioglitazone Hydrochloride Other (Please comment) 11/19/2009 palpitations Erythromycin Base Rash 11/19/2009 Metformin 09/24/2011 Metformin Hcl Other (Please comment) 11/19/2009 palpitations Prednisone 11/19/2009 syncope documented as of this encounter (statuses as of 09/30/2023) Medications Medication Sig Dispensed Refills Start Date [...] Tablet Sublingual (Nitrostat)Indicati ons:Coronary artery disease involving [place] coronary artery of [place] heart without angina pectoris Place 1 Tablet [...] goal LDL below 70,Coronary artery disease involving [place] coronary artery of [place] heart without angina pectoris Take 1 Tablet [...] Muscle spasms. 90 Tablet 1 08/01/2023 Active HYDROcodone-Acetami nophen 10-325 MG Oral TabletIndications:C [...] IN THE MORNING 90 Tablet 08/20/2023 Active BD Insulin Syringe U/F 31G X 5/16" 1 ML (Insulin Syringe-Needle U-100) use twice daily with insulin DIRECTED 200 Each 08/31/2023 Active Ibuprofen 600 MG Oral Tablet (Motrin) TAKE 1 TABLET BY MOUTH EVERY 8 HOURS NEEDED FOR PAIN, TAKE WITH FOOD 90 Tablet 3 09/14/2023 Active Metoprolol Succinate ER 50 MG Oral Tablet Extended Release 24 Hour (toPROL XL)Indications:Gabriele nary artery disease involving [place] coronary artery of [place] heart without angina pectoris TAKE ONE TABLET [...] before supper. 120 mL 09/21/2023 Active Pen [place] 32G X 6 MMIndications:Type 2 diabetes mellitus with diabetic peripheral angiopathy without gangrene, with long-term current use of insulin (HCC) Use as directed. Use to inject Novolog insulin twice a day 200 Each 09/21/2023 Active Trulicity 3 MG/0.5ML Subcutaneous Solution Pen-injector (Dulaglutide)Indica tions:Type 2 diabetes mellitus with diabetic peripheral angiopathy without gangrene, with long-term current use of insulin ([facility]),Type 2 diabetes mellitus with hemoglobin A1c goal of less than 8.0% ([facility]) Inject 3 mg under the skin once a week. 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 4 Patch 09/30/2023 Active Buprenorphine 15 MCG/HR Transdermal Patch WeeklyIndications:S jose enrique stenosis of lumbar region without neurogenic claudication,Chroni c bilateral low back pain with bilateral sciatica Place 1 Patch topically on the skin once a week. 4 Patch 09/02/2023 4 Discontinu ed(Refill) documented as of this encounter (statuses as of 09/30/2023) Active Problems Problem Noted Date Diagnosed Date [...] as of this encounter (statuses as of 09/30/2023) Resolved Problems Problem Noted Date Diagnosed Date [...] as of this encounter (statuses as of 09/30/2023) Immunizations Name Administration Dates Next Due Pneumococcal [...] Telephone Encounter - Joey Cody DO - 09/30/2023 7:54 AM EDT Signed Prescriptions: Disp Refills Buprenorphine 15 MCG/HR Transdermal Patch *4 Patch0 Sig: Place 1 Patch topically on the skin once a week. Authorizing Provider: JOEY CODY * Telephone Encounter - Joey Cody DO - 09/30/2023 7:53 AM EDT I have evaluated Samuel Roman and have documentation of an appropriate physical exam, diagnostictesting/imaging results, and pain assessment indicating [id number] pain. FOR RENEWAL REQUESTS: Samuel experienced an improvement in pain control and level of functioning while taking the requested medication? Yes Samuel is being monitored for adverse events and warning signs of serious problems, such as overdose and opioid use disorder? Yes FOR ALL REQUESTS: The requested opioid medication will be used in combination with tolerated non- drug therapies and non-opioid medications? Yes The anticipated duration of therapy with opioids is: 6 months Samuel was evaluated for risk factors for opioid-related harm, and if at high risk for opioid-related harm I considered prescribing naloxone? Yes If the patient is also prescribed a benzodiazepine, the benzodiazepine or opioid is being tapered or concomitant use is medically necessary? Not applicable patient not prescribed benzodiazepine. Samuel signed a medication use agreement which is scanned into their medical record? Yes I or my delegate searched the PDMP to review the patient's controlled substance prescription history before prescribing the requested medication? Yes CAGE-AID Have you felt you ought to cut down on your drinking or drug use? No Have people annoyed you by criticizing your drinking or drug use? No Have you felt bad or guilty about your drinking or drug use? No Have you ever had a drink or used drugs first thing in the morning to steady your nerves or to get rid of a hangover (eye-opening)? No Two or more positive responses indicate the need for further evaluation. Urine drug screen needed every 12 months for less than 50 MME, every 6 months for 50 MME and higher. Results for orders placed or performed in [...] purposes. Confirmatory testing is available upon request. * Telephone Encounter - Dre Holloway, [facility] - 09/29/2023 4:11 PM EDT Pending Prescriptions: Disp Refills Buprenorphine 15 MCG/HR Transdermal Patch *4 Patch0 Sig: Place 1 Patch topically on the skin once a week. * Telephone Encounter - Dre Holloway [facility] - 09/29/2023 4:03 PM EDT I have reviewed the patients controlled substance dispensing history in the Prescription Drug Monitoring Program in compliance with the [facility] regulations before prescribing a controlled substance. PDMP checked on 09/29/2023. Pending Prescriptions: Disp Refills Buprenorphine 15 MCG/HR Transdermal Patch*4 Patch0 Sig: Place 1 Patch topically on the skin once a week. Last Visit: 09/16/2023 (in office), Visit date not found (telemedicine) Next Visit: Visit date not found Date medication was last filled: 09/02/2023 Date medication is due for refill: 09/29/2023 Pharmacy: [facility] [address] Is this request for a controlled [...] available upon request. Please approve if appropriate. Thank you, Fadi Holloway, PharmD Clinical Pharmacist [facility] ([facility]) 09/29/23 4:03 PM [phone] * Telephone Encounter - Carley Pollard PHARM Tech - 09/29/2023 11:51 AM EDT Daughter calling to check on status of rx. Caller can be reached at [phone]. Thanks, Carley Pollard Cuff Cutter [facility] ([facility]) 09/29/2023,11:51 AM * Telephone Encounter - Liudmila De La Cruz PHARM Tech - 09/28/2023 12:48 PM EDT Did you pend patient's preferred pharmacy and medication before forwarding?yes Pharmacy: [facility] Pending Prescriptions: Disp Refills Buprenorphine 15 MCG/HR Transdermal Patch*4 Patch0 Sig: Place 1 Patch topically on the skin once a week. Last Visit: 09/16/2023 (in office), Visit date not found (telemedicine) Next Visit: Visit date not found If no future appointments scheduled, and last appointment is greater than a year ago, please schedule patient for a follow-up appointment Last date the medication was ordered: 09/02/23 Is this request for a controlled substance?Yes, What was the last refill date 09/02/23 w/ quantity 4 and dosage 15 mcg and Urine Drug Screen was completed Urine Drug Screen: Results for orders placed [...] this encounter Medical Devices Implanted Type Area Switchboard Operator Device Identifier Shelf Expiration Date Model / Serial / Lot Sut Steel 6 M654g - [id number] Implanted:Qty: 4 on 06/18/2016 by Wicho Mason MD at OR [facility] [place] N/A: Sternum JNJ : [employer] 03/31/2021 [id number] / / [id number] Graft Marker Coronary - [id number] Implanted:Qty: 1 on 06/18/2016 by Wicho Mason MD at OR [facility] [place] N/A: Aorta VM CARDIO VASCULAR 10/29/2017 [id number] / / [id number] documented as of this encounter Visit Diagnoses [...] Power of Attor morelia? No Care Teams Concert Or Lecture Hall Manager Relationship Specialty Start Date End Date Joey Cody DO [address] [place] [address] PCP - General Internal Medicine 12/03/20 documented as of this encounter
--- OUTSIDE RECORDS SUMMARY | 2023-11-02 14:15 | External Medical Summary | Summary of Care ---
Author Name Unknown Organization [facility] Address [address] [facility] [place] [address] Phone [phone] Care Team Providers Care Soccer Player Name Role Phone Joey Rose DO Primary Care Provid er Reason for Visit * Reason Onset Date Comments Referral 09/28/2023 Gi Nutrition Ref erral Encounter Details Date Type Department Care Team ([facility] st Contact Info) Description 09/28/2023 Telephone Family [address] [phone] Joey Rose DO [address] [place] [address] Referral (Gi Nutrition Referral ) Allergies Active Allergy Reactions Criticality Noted Date Comments Pioglitazone Hydrochloride Other (Please comment) 11/19/2009 palpitations Erythromycin Base Rash 11/19/2009 Metformin 09/24/2011 Metformin Hcl Other (Please comment) 11/19/2009 palpitations Prednisone 11/19/2009 syncope documented as of this encounter (statuses as of 09/28/2023) Medications Medication Sig Dispensed Refills Start Date [...] Tablet Sublingual (Nitrostat)Indicatio ns:Coronary artery disease involving [place] coronary artery of [place] heart without angina pectoris Place 1 Tablet [...] goal LDL below 70,Coronary artery disease involving [place] coronary artery of [place] heart without angina pectoris Take 1 Tablet [...] Hour (toPROL XL)Indications:Coron austyn artery disease involving [place] coronary artery of [place] heart without angina pectoris TAKE ONE TABLET BY MOUTH ONCE DAILY 90 Tablet 3 09/20/2023 Active NovoLOG Mix 70/30 FlexPen (70-30) 100 UNIT/ML Suspension Pen-injector (Insulin Aspart Prot & Aspart)Indications:T ype 2 diabetes mellitus with diabetic peripheral angiopathy without gangrene, with long-term current use of insulin ([facility]) Inject under the skin 2 times a day. 70 units before breakfast and 70 units before supper. 120 mL 1 09/21/2023 Active Pen [place] 32G X 6 MMIndications:Type 2 diabetes mellitus with diabetic peripheral angiopathy without gangrene, with long-term current use of insulin ([facility]) Use as directed. Use to [...] as of this encounter (statuses as of 09/28/2023) Active Problems Problem Noted Date Diagnosed Date [...] as of this encounter (statuses as of 09/28/2023) Resolved Problems Problem Noted Date Diagnosed Date [...] as of this encounter (statuses as of 09/28/2023) Immunizations Name Administration Dates Next Due Pneumococcal [...] Telephone Encounter - Lizeth Bullard LPN - 09/28/2023 3:20 PM EDT Faxed as requested. * Telephone Encounter - Danita Hayes OSA - 09/28/2023 2:33 PM EDT Caller requesting the following information to be faxed: Name/Company of caller: Dr. Wilson Information requested to be faxed: Gi Nutrition Referral Fax number: [phone] Attention to Name/Company: n/a Any additional information?: n/a Please call when the referral is sent documented in this encounter Plan of Treatment Upcoming Encounters Date Type Department Care Team ([facility] st Contact Info) Description 09/30/2023 9:00 AM EDT Office Visit Pharmacy [facility], [address] [address] Pharmacist2, [facility] [address] [address] Health Maintenance Due Date Last Done Comments [...] this encounter Medical Devices Implanted Type Area Party Plan Salesperson Device Identifier Shelf Expiration Date Model / Serial / Lot Sut Steel 6 M654g - [id number] Implanted:Qty: 4 on 06/18/2016 by Wicho Mason MD at [place] [facility] [place] N/A: Sternum JNJ : [employer] 03/31/2021 [id number] / / [id number] Graft Marker Coronary - [id number] Implanted:Qty: 1 on 06/18/2016 by Wicho Mason MD at OR [facility] [place] N/A: Aorta VM CARDIO VASCULAR 10/29/2017 [id number] / / [id number] documented as of this encounter Advance Directives [...] Power of Attor morelia? No Care Teams Soccer Player Relationship Specialty Start Date End Date Joey Rose DO [address] [place] [address] PCP - General Internal Medicine 12/03/20 documented as of this encounter
--- OUTSIDE RECORDS SUMMARY | 2023-11-02 14:15 | External Medical Summary | Summary of Care ---
Author Name Unknown Organization [facility] Address [address] [facility] [address] Phone [phone] Care Team Providers Care Agricultural Chemist Name Role Phone Joey Rose DO Primary Care Provid er Reason for Visit * Reason Onset Date Comments Medication Pre-auth 09/21/2023 Trulicity 4. 5 MG/0.5ML Subcutaneous Solution Pen-injector (Dulaglutide) Encounter Details Date Type Department Care Team ([facility] Contact Info) Description 09/21/[address] [phone] Joey Rose DO [address] [place] [phone] Medication Pre-auth (Trulicity 4.5 MG/0.5M... Allergies Active Allergy Reactions Criticality Noted Date [...] Tablet Sublingual (Nitrostat)Indicati ons:Coronary artery disease involving kas[place] coronary artery of kasaan heart without angina pectoris Place 1 Tablet [...] goal LDL below 70,Coronary artery disease involving kas[place] coronary artery of kas[place] heart without angina pectoris Take 1 Tablet [...] Hour (toPROL XL)Indications:Gabriele nary artery disease involving kas[place] coronary artery of kasaan heart without angina pectoris TAKE ONE TABLET BY MOUTH ONCE DAILY 90 Tablet 3 09/20/2023 Active Trulicity 3 MG/0.5ML Subcutaneous Solution Pen-injector [...] week. 4 Patch 09/02/2023 4 Discontinu ed(Refill) Insulin NPH Isophane & Regular (70-30) 100 UNIT/ML Subcutaneous Suspension (NovoLIN 70/30)Indications:T ype 2 diabetes mellitus with diabetic peripheral angiopathy without gangrene, with long-term current use of insulin (HCC) Inject under the skin 2 times a day. 70 units before breakfast and 70 units before supper. 60 mL 3 09/19/2023 4 Discontinu ed(Medicat ion/Dose Changed) documented as of this encounter (statuses [...] Miscellaneous Notes * Telephone Encounter - Joey Rose DO - 09/21/2023 1:42 PM EDT Trulicity 3 mg dosage ordered * Telephone Encounter - Senait Fish RPh - 09/21/2023 10:53 AM EDT Trulicity 4.5 mg dose is on motion picture camera lens technician back order. Hemoglobin AIC Results: Lab Results Component Value Date/Time [facility] 07/15/2023 01:13 PM Rx is pended for alternative dose of 3 mg that is available. Please sign if agreeable and route back to me so I can advise patient. Pending Prescriptions: Disp Refills Trulicity 3 MG/0.5ML Subcutaneous Solutio*6 mL 1 Sig: Inject 3 mg under the skin once a week. Thank you, Senait Fish PharmD Clinical Pharmacist [facility] ([facility]) (formerly [facility]) [phone] 09/21/2023, 10:53 AM * Telephone Encounter - Laurie Wolf PHARM Tech - 09/21/2023 9:49 AM EDT This is not a prior auth request. This is a request for an alternative prescription. Please advise. Thank you, Laurie Wolf CPhT Coating And Embossing Unit Operator Tanning Solution Maker [facility] ([facility])(formerly Telepharm[facility]) 09/21/2023,9:49 AM * Telephone Encounter - Leila Arana CPhT - 09/21/2023 9:44 AM EDT Pharmacy states patient has been out and is asking for high priority Pharmacy calling to inform doctor that the patient's medication is on backorder and requesting an alternative. Did confirm this information with the pharmacy. Pt's current insurance information is as follows: Patient name: Samuel Roman ID number: [id number] BIN number: [id number] PCN number: [id number] Group number: [id number] Subscriber name: Samuel Roman Primary or Secondary Insurance:Primary Medication: Trulicity 4.5 MG/0.5ML Subcutaneous Solution Pen-injector (Dulaglutide) Reason for Request: backorder Pharmacy and phone number: [facility] [address] Rx plan and phone number: [phone] What alternative medications does the pharmacy have in stock?: 3mg Thank you, Leila Arana Card Setter [facility] ([facility]) (Formerly Telepharmacy) 09/21/2023,9:44 AM documented in this encounter Plan of Treatment Upcoming Encounters Date Type Department Care Team ([facility] Contact Info) Description 10/31/2023 6:10 PM EDT Pharmacy Pharmacy [address] [phone] Pharmacist2, [address] [address] Health Maintenance Due Date Last Done Comments [...] this encounter Medical Devices Implanted Type Area Grants Analyst Device Identifier Shelf Expiration Date Model / Serial / Lot Sut Steel 6 M654g - [id number] Implanted:Qty: 4 on 06/18/2016 [place]o Mason [place] [facility] [place] Sternum JNJ : [employer] 03/31/2021 [id number] / / [id number] Graft Marker Coronary - [id number] Implanted:Qty: 1 on 06/18/2016 by Wicho Mason MD [place] [facility] [place]A: Aorta VM CARDIO VASCULAR 10/29/2017 [id number] / / [id number] documented as of this encounter Visit Diagnoses Diagnosis Type 2 diabetes mellitus with diabetic peripheral angiopathy without gangrene, with long-term current use of insulin (HCC)- Primary Type 2 diabetes mellitus with hemoglobin A1c goal of less than 8.0% (HCC) documented in this encounter Advance Directives [...] 6:13 PM 06/18/2016 7:28 AM This order reflects the patients wishes and were consensually agreed upon. Question Answer Comments Discussion of Advance Directives occurred with: Patient Does the patient have a Living Will? No Does the patient have Health Care Power of Attor morelia? No Care Teams Agricultural Chemist Relationship Specialty Start Date End Date Joey Rose DO [address] [place] [phone] PCP - General Internal Medicine 12/03/20 documented as of this encounter
--- OUTSIDE RECORDS SUMMARY | 2023-11-02 14:15 | External Medical Summary | Summary of Care ---
Author Name Unknown Organization [facility] Address [address] [facility] [place] [address] Phone [phone] Care Team Providers Care Afternoon Nanny Name Role Phone Joey Rose DO Primary Care Provid er Reason for Visit * Reason Onset Date Comments Medication Pre-auth 09/21/2023 Insulin NPH Isophane & Regular (70-30) 100 UNIT/ML Subcutaneous Suspension (NovoLIN 70/30) Encounter Details Date Type Department Care Team ([facility] Contact Info) Description 09/21/2023 Telephone Family [address] [phone] Joey Rose DO [address] [place] [phone] Medication Pre-auth (Insulin NPH Isophane ... 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 120 mL 09/21/2023 Active Pen [place] 32G X 6 MMIndications:Type [...] Encounter - Joey Rose DO - 09/21/2023 1:43 PM EDT Pharmacy contacted office stating that insulin solution is on national back order. He will need to use flex pen. This was ordered. Continue same insulin dosage * Telephone Encounter - Senait Fish [facility] - 09/21/2023 10:23 AM EDT Pharmacy calling to inform office that generic Novolin 70/30 solution is on a rn pool back order and requesting alternative. Rx is pended for FlexPen that is available. Please sign if agreeable and route back to me so I can advise patient. Pending Prescriptions: Disp Refills NovoLOG Mix 70/30 FlexPen (70-30) 100 UNI*120 mL 1 Sig: Inject under the skin 2 times a day. 70 units before breakfast and 70 units before supper. Pen Houston 32G X 6 MM 200 Ea*1 Sig: Use as directed. Use to inject Novolog insulin twice a day Thank you, Senait Fish PharmD Clinical Pharmacist [facility] ([facility]) (formerly Telepharmacy) [phone] 09/21/2023, 10:24 AM * Telephone Encounter - Leila Arana CPhT - 09/21/2023 9:46 AM EDT Pharmacy is asking for high priority. Pharmacy calling to inform doctor that the patient's medication is on backorder and requesting an alternative. Did confirm this information with the pharmacy. Pt's current insurance information is as follows: Patient name: Samuel Roman ID number: [id number] BIN number: [id number] PCN number: [id number] Group number: [id number] Subscriber name: Samuel Roman Primary or Secondary Insurance:Primary Medication: Insulin NPH Isophane & Regular (70-30) 100 UNIT/ML Subcutaneous Suspension (NovoLIN 70/30) Reason for Request: backorder Pharmacy and phone number: [facility] [address] Rx plan and phone number: GG What alternative medications does the pharmacy have in stock?: novolin flex pen. Thank you, Leila Arana Hide Stretcher Hand [facility] ([facility]) (Formerly Telepharmacy) 09/21/2023,9:44 AM documented in this encounter Plan of Treatment Upcoming Encounters Date Type Department Care Team ([facility] Contact Info) Description 10/31/2023 6:10 PM EDT Pharmacy Pharmacy [address] [phone] Pharmacist2, [facility] [address] [address] Health Maintenance Due Date Last Done Comments [...] this encounter Medical Devices Implanted Type Area Bodily Injury Adjuster Device Identifier Shelf Expiration Date Model / Serial / Lot Sut Steel 6 M654g - [id number] Implanted:Qty: 4 on 06/18/2016 by Wicho Mason MD at [place] [facility] [place] N/A: Sternum JNJ : [employer] 03/31/2021 M654G / / [id number] Graft Marker Coronary - [id number] Implanted:Qty: 1 on 06/18/2016 by Wicho Mason MD at [place] [facility] [place] N/A: Aorta VM CARDIO VASCULAR 10/29/2017 [id number] / / [id number] documented as of this encounter Visit Diagnoses [...] Power of Attor morelia? No Care Teams Afternoon Nanny Relationship Specialty Start Date End Date Joey Rose DO [address] [place] [phone] PCP - General Internal Medicine 12/03/20 documented as of this encounter
--- OUTSIDE RECORDS SUMMARY | 2023-11-02 14:16 | External Medical Summary | Summary of Care ---
Author Name Unknown Organization [facility] Address [address] [facility] [place] [address] Phone [phone] Care Team Providers Care Cap Inspector Name Role Phone Joey Cody DO Primary Care Provid er Reason for Referral * Medication Prior Authorization - Closed Specialty Diagnoses / Procedures Referred By Ming ruiz Referred To Contact Diagnoses Spinal stenosis of lumbar region without neurogenic claudication Chronic bilateral low back pain with bilateral sciatica Joey Cody DO [address] [place] [address] Referral ID Status Reason Start Date Expiration Date Visits Re quested Visits Authorized [id number] Closed 999 999 Reason for Visit * Reason Comments eRx-Medication Refill Encounter Details Date Type Department Care Team ([facility] Contact Info) Description 08/31/2023 Refill Family Practice [facility] [address] [place] [address] Joey Cody DO [address] [place] [address] Spinal stenosis of lumbar region without neurogenic claudication; Chronic bilateral low back pain with bilateral sciatica Allergies Active Allergy Reactions Criticality Noted Date Comments Pioglitazone Hydrochloride Other (Please comment) 11/19/2009 palpitations Erythromycin Base Rash 11/19/2009 Metformin 09/24/2011 Metformin Hcl Other (Please comment) 11/19/2009 palpitations Prednisone 11/19/2009 syncope documented as of this encounter (statuses as of 09/02/2023) Medications Medication Sig Dispensed Refills Start Date End Date Status aspirin 81 MG chewable tablet Take 1 Tablet by mouth in the morning and 1 Tablet before bedtime. With food.. 100 Tab 0 9 Active Diclofenac Sodium 1 % gelIndications:Gene [...] Tablet Sublingual (Nitrostat)Indicati ons:Coronary artery disease involving marshall coronary artery of marshall heart without angina pectoris Place 1 Tablet [...] goal LDL below 70,Coronary artery disease involving marshall coronary artery of marshall heart without angina pectoris Take 1 Tablet [...] as directed 100 Each 5 3 Active Ibuprofen 600 MG Oral Tablet (IBU) TAKE 1 TABLET BY MOUTH EVERY 8 HOURS NEEDED FOR PAIN, TAKE WITH FOOD 90 Tablet 3 3 Active Blood Glucose Test Strips 333 In Vitro StripIndications:Ty pe 2 diabetes mellitus with diabetic peripheral angiopathy without gangrene, with long-term current use of insulin (HCC) Use to check sugar 4 times daily 400 Strip 11 3 Active NovoLIN 70/30 (70-30) 100 UNIT/ML Subcutaneous Suspension (Insulin NPH Isophane & Regular) INJECT 55 UNITS UNDER THE SKIN TWICE DAILY, BEFORE BREAKFAST AND DINNER. 60 mL 3 3 Active Trulicity 4.5 MG/0.5ML Subcutaneous Solution Pen-injector (Dulaglutide) Inject 4.5 mg under the skin once a week. 6 mL 3 4 Active Metoprolol Succinate ER 50 MG Oral Tablet Extended Release 24 Hour (toPROL XL)Indications:Gabriele nary artery disease involving marshall coronary artery of marshall heart without angina pectoris TAKE ONE TABLET BY MOUTH ONCE DAILY 90 Tablet 0 4 Active tiZANidine HCl 4 MG Oral Tablet (Zanaflex)Indicatio ns:Chronic right-sided low back pain with right-sided sciatica Take 1 Tablet by mouth every 8 hours as needed for Muscle spasms. 90 Tablet 1 4 Active HYDROcodone-Acetami nophen 10-325 MG Oral TabletIndications:C hronic right-sided low back pain with right-sided sciatica Take 1 Tablet by mouth every 6 hours as needed for Pain, Moderate. 120 Tablet 0 4 Active Sertraline HCl 100 MG Oral [...] the skin once a week. 4 Patch 0 4 Active Buprenorphine 15 MCG/HR Transdermal Patch WeeklyIndications:S jose enrique stenosis of lumbar region without neurogenic claudication,Chroni c bilateral low back pain with bilateral sciatica Place 1 Patch topically on the skin once a week. 4 Patch 0 4 09/02/19 24 Discontinued documented as of this encounter (statuses as of 09/02/2023) Active Problems Problem Noted Date Diagnosed Date [...] as of this encounter (statuses as of 09/02/2023) Resolved Problems Problem Noted Date Diagnosed Date [...] as of this encounter (statuses as of 09/02/2023) Immunizations Name Administration Dates Next Due Pneumococcal [...] Telephone Encounter - Joey Cody DO - 09/02/2023 9:00 AM EDT Signed Prescriptions: Disp Refills Buprenorphine 15 MCG/HR Transdermal Patch *4 Patch0 Sig: Place 1 Patch topically on the skin once a week. Authorizing Provider: JOEY CODY * Telephone Encounter - Katheryn Dougherty RP - 09/01/2023 3:07 PM EDTPending Prescriptions: Disp Refills Buprenorphine 15 MCG/HR Transdermal Patch *4 Patch0 Sig: Place 1 Patch topically on the skin once a week. Electronically signed by Katheryn Dougherty [facility] at 09/01/2023 3:07 PM EDT * Telephone Encounter - Katheryn Dougherty RP - 09/01/2023 3:06 PM EDT I have reviewed the patients controlled substance dispensing history in the Prescription Drug Monitoring Program in compliance with the [facility] regulations before prescribing a controlled substance. PDMP checked on 09/01/2023. Pending Prescriptions: Disp Refills Buprenorphine 15 MCG/HR Transdermal Patch*4 Patch0 Sig: Place 1 Patch topically on the skin once a week. Last Visit: 07/20/2023 (in office), Visit date not found (telemedicine) Next Visit: Visit date not found Date medication was last filled: 08/05/23 Date medication is due for refill: 09/01/23 Pharmacy: [facility] [address] Is this request for a controlled [...] available upon request. Please approve if appropriate. Thanks, Katheryn Dougherty, PharmD Clinical Pharmacist [facility] ([facility] - Formerly Telepharmacy) [phone] 09/01/2023 3:06 PM Electronically signed by Katheryn Dougherty [facility] at 09/01/2023 3:07 PM EDT documented in this encounter Plan of Treatment Upcoming Encounters Date Type Department Care Team ([facility] st Contact Info) Description 09/28/2023 6:10 PM EDT Pharmacy Pharmacy [address] [phone] Pharmacist2, [address] [address] Health Maintenance Due Date Last Done Comments [...] ASSESSMENT COMPLETED IN PAST YEAR FOR COPD 07/19/2024 07/20/2023 Alpha-1 Antitrypsin Completed 12/14/2022 GARDASIL-HPV IMMUNIZATION SERIES Aged Out No longer eligible based on patient's age to complete this topic Hepatitis B Aged Out No longer eligi ble based on patient's age to complete this topic MENINGOCOCCAL (MENACTRA/MENVEO) Aged Out No longer eligible based on patient's age to complete this topic documented as of this encounter Medical Devices Implanted Type Area Railway Signal Operator Device Identifier Shelf Expiration Date Model / Serial / Lot Sut Steel 6 M654g - [id number] Implanted:Qty: 4 on 06/18/2016 [place]o [place] [facility] [place] Sternum JNJ : [employer] 03/31/2021 M654G / / [id number] Graft Marker Coronary - [id number] Implanted:Qty: 1 on 06/18/2016 by Wicho Mason MD [place] [facility] [place]A: Aorta VM CARDIO VASCULAR 10/29/2017 [id number] / / [id number] documented as of this encounter Visit Diagnoses Diagnosis Spinal stenosis of lumbar region without neurogenic claudication Spinal stenosis, lumbar region, without neurogenic claudication Chronic bilateral low back pain with bilateral sciatica documented in this encounter Advance Directives Latest Code Status on File Code Status Date Activated Date Inactivated Comments Full Code 06/18/2016 1:14 PM 06/23/2016 4:44 PM This order reflects the patients wishes and were consensually agreed upon. Question Answer Comments Discussion of Advance Directives occurred with: Patient Does the patient have a Living Will? No Does the patient have Health Care Power of Certified Surgical Tech/First Assistant? No Code Status History Code Status Date Activated Date Inactivated Comments Full Code 06/15/2016 6:13 PM 06/18/2016 7:28 AM This order reflects the patients wishes and were consensually agreed upon. Question Answer Comments Discussion of Advance Directives occurred with: Patient Does the patient have a Living Will? No Does the patient have Health Care Power of Certified Surgical Tech/First Assistant? No Care Teams Cap Inspector Relationship Specialty Start Date End Date Joey Cody DO [address] [place] [address] PCP - General Internal Medicine 12/03/20 documented as of this encounter
--- OUTSIDE RECORDS SUMMARY | 2023-11-02 14:16 | External Medical Summary | Summary of Care ---
Author Name Unknown Organization [facility] Address [address] [facility] [place] [address] Phone [phone] Care Team Providers Care Funeral Home Assistant Name Role Phone MikaylaalberJoey Lukas Primary Care Provid er Encounter Details Date Type Department Care Team (Late st Contact Info) Description 09/20/2023 Population Health External Data Unspecified Department Allergies Active Allergy Reactions Criticality Noted Date Comments Pioglitazone Hydrochloride Other (Please comment) 11/19/2009 palpitations Erythromycin Base Rash 11/19/2009 Metformin 09/24/2011 Metformin Hcl Other (Please comment) 11/19/2009 palpitations Prednisone 11/19/2009 syncope documented as of this encounter (statuses as of 09/21/2023) Medications Medication Sig Dispensed Refills Start Date [...] Tablet Sublingual (Nitrostat)Indicatio ns:Coronary artery disease involving [place] coronary artery of [place] heart without angina pectoris Place 1 Tablet [...] goal LDL below 70,Coronary artery disease involving [place] coronary artery of [place] heart without angina pectoris Take 1 Tablet [...] Hour (toPROL XL)Indications:Coron austyn artery disease involving [place] coronary artery of [place] heart without angina pectoris TAKE ONE TABLET BY MOUTH ONCE DAILY 90 Tablet 3 09/20/2023 Active documented as of this encounter (statuses as of 09/21/2023) Active Problems Problem Noted Date Diagnosed Date [...] as of this encounter (statuses as of 09/21/2023) Resolved Problems Problem Noted Date Diagnosed Date [...] as of this encounter (statuses as of 09/21/2023) Immunizations Name Administration Dates Next Due Pneumococcal [...] Upcoming Encounters Date Type Department Care Team ([facility] Contact Info) Description 09/30/2023 9:00 AM EDT Office Visit Pharmacy [address] [phone] Pharmacist2, [facility] [address] [address] Health Maintenance Due Date Last Done Comments [...] this encounter Medical Devices Implanted Type Area Lead Miner Blasting Device Identifier Shelf Expiration Date Model / Serial / Lot Sut Steel 6 M654g - [id number] Implanted:Qty: 4 on 06/18/2016 [place] [facility] [place] Sternum JNJ : [employer] 03/31/2021 [id number] / / [id number] Graft Marker Coronary - [id number] Implanted:Qty: 1 on 06/18/2016 [place] Mason [place] [facility] [place]A: Aorta VM CARDIO VASCULAR 10/29/2017 [id number] / / [id number] documented as of this encounter Advance Directives [...] Power of Attor morelia? No Care Teams Funeral Home Assistant Relationship Specialty Start Date End Date Joey Rose DO [address] [place] [phone] PCP - General Internal Medicine 12/03/20 documented as of this encounter
--- OUTSIDE RECORDS SUMMARY | 2023-11-02 14:16 | External Medical Summary | Summary of Care ---
Author Name Unknown Organization [facility] Address [address] [facility] [place] [address] Phone [phone] Care Team Providers Care Procurement Officer Name Role Phone Joey Cody DO Primary Care Provid er Reason for Visit * Reason Comments eRx-Medication Refill Encounter Details Date Type Department Care Team ([facility] Contact Info) Description 09/19/2023 Refill Family [facility] [address] [place] [address] Joey Cody DO [address] [place] [address] Coronary artery disease involving [place] coronary artery of [place] heart without angina pectoris Allergies Active Allergy Reactions Criticality Noted Date Comments Pioglitazone Hydrochloride Other (Please comment) 11/19/2009 palpitations Erythromycin Base Rash 11/19/2009 Metformin 09/24/2011 Metformin Hcl Other (Please comment) 11/19/2009 palpitations Prednisone 11/19/2009 syncope documented as of this encounter (statuses as of 09/20/2023) Medications Medication Sig Dispensed Refills Start Date [...] Tablet Sublingual (Nitrostat)Indicati ons:Coronary artery disease involving [place] coronary artery of [place] heart without angina pectoris Place 1 Tablet [...] goal LDL below 70,Coronary artery disease involving [place] coronary artery of [place] heart without angina pectoris Take 1 Tablet [...] Hour (toPROL XL)Indications:Gabriele nary artery disease involving [place] coronary artery of [place] heart without angina pectoris TAKE ONE TABLET BY MOUTH ONCE DAILY 90 Tablet 3 4 Active Insulin NPH Isophane & Regular (70-30) 100 UNIT/ML Subcutaneous Suspension (NovoLIN 70/30)Indications:T ype 2 diabetes mellitus with diabetic peripheral angiopathy without gangrene, with long-term current use of insulin (HCC) Inject under the skin 2 times a day. 70 units before breakfast and 70 units before supper. 60 mL 3 4 Active Metoprolol Succinate ER 50 MG Oral Tablet Extended Release 24 Hour (toPROL XL)Indications:Gabriele nary artery disease involving [place] coronary artery of [place] heart without angina pectoris TAKE ONE TABLET BY MOUTH ONCE DAILY 90 Tablet 4 09/20/19 24 Discontinued documented as of this encounter (statuses as of 09/20/2023) Active Problems Problem Noted Date Diagnosed Date [...] as of this encounter (statuses as of 09/20/2023) Resolved Problems Problem Noted Date Diagnosed Date [...] as of this encounter (statuses as of 09/20/2023) Immunizations Name Administration Dates Next Due Pneumococcal [...] encounter Miscellaneous Notes * Telephone Encounter - Juana Campos RPh - 09/20/2023 3:01 PM EDTSigned Prescriptions: Disp Refills Metoprolol Succinate ER 50 MG Oral Tablet *90 Tab*3 Sig: TAKE ONE TABLET BY MOUTH ONCE DAILYAuthorizing Provider: JOEY CODY User: JUANA CAMPOS documented in this encounter Plan of Treatment Upcoming Encounters Date Type Department Care Team ([facility] st Contact Info) Description 09/30/2023 9:00 AM EDT Office Visit Pharmacy [address] [phone] Pharmacist2, [facility] [address] [address] Health Maintenance Due Date Last Done Comments [...] this encounter Medical Devices Implanted Type Area Wall Cleaner Device Identifier Shelf Expiration Date Model / Serial / Lot Sut Steel 6 M654g - [id number] Implanted:Qty: 4 on 06/18/2016 by Wicho Mason MD at OR [facility] N/A: Sternum JNJ : [employer] 03/31/2021 [id number] / / [id number] Graft Marker Coronary - [id number] Implanted:Qty: 1 on 06/18/2016 by Wicho Mason MD at OR [facility] N/A: Aorta VM CARDIO VASCULAR 10/29/2017 [id number] / / [id number] documented as of this encounter Visit Diagnoses Diagnosis Coronary artery disease involving [place] coronary artery of [place] heart without angina pectoris documented in this encounter Advance Directives * [...] Power of Attor morelia? No Care Teams Procurement Officer Relationship Specialty Start Date End Date Joey Cody DO [address] [place] [address] PCP - General Internal Medicine 12/03/20 documented as of this encounter
--- OUTSIDE RECORDS SUMMARY | 2023-11-02 14:16 | External Medical Summary | Summary of Care ---
Author Name Unknown Organization [facility] Address [address] [facility] [place] [address] Phone [phone] Care Team Providers Care Salt Manager Name Role Phone Joey Rose DO Primary Care Provid er Reason for Visit * Reason Onset Date Comments Medication Refill 09/19/2023 Encounter Details Date Type Department Care Team ([facility] st Contact Info) Description 09/19/2023 Telephone Family Practice [address] [phone] Joey Rose DO [address] [place] [address] Medication Refill Allergies Active Allergy Reactions [...] Tablet Sublingual (Nitrostat)Indicati ons:Coronary artery disease involving [place] coronary artery of [place] heart without angina pectoris Place 1 Tablet [...] goal LDL below 70,Coronary artery disease involving [place] coronary artery of [place] heart without angina pectoris Take 1 Tablet [...] gangrene, with long-term current use of insulin ([facility]) use up to 4 times a day [...] a week. 6 mL 3 06/16/2023 Active Metoprolol Succinate ER 50 MG Oral Tablet Extended Release 24 Hour (toPROL XL)Indications:Gabriele nary artery disease involving [place] coronary artery of [place] heart without angina pectoris TAKE ONE TABLET BY MOUTH ONCE DAILY 90 Tablet 06/27/2023 Active tiZANidine HCl 4 MG Oral Tablet [...] 08/31/2023 Active Buprenorphine 15 MCG/HR Transdermal Patch WeeklyIndications:S jose enrique stenosis of lumbar region without neurogenic claudication,Chroni c bilateral low back pain with bilateral sciatica Place 1 Patch topically on the skin once a week. 4 Patch 09/02/2023 Active Ibuprofen 600 MG Oral Tablet (Motrin) TAKE 1 TABLET BY MOUTH EVERY 8 HOURS NEEDED FOR PAIN, TAKE WITH FOOD 90 Tablet 3 09/14/2023 Active Insulin NPH Isophane & Regular (70-30) 100 UNIT/ML Subcutaneous Suspension (NovoLIN 70/30)Indications:T ype 2 diabetes mellitus with diabetic peripheral angiopathy without gangrene, with long-term current use of insulin (HCC) Inject under the skin 2 times a day. 70 units before breakfast and 70 units before supper. 60 mL 3 09/19/2023 Active NovoLIN 70/30 (70-30) 100 UNIT/ML Subcutaneous Suspension (Insulin NPH Isophane & Regular) INJECT 70 UNITS UNDER THE SKIN TWICE DAILY, BEFORE BREAKFAST AND DINNER. 60 mL 3 09/16/2023 4 Discontinu ed(Medicat ion List Clean Up) documented as of this [...] Thank you for your assistance Cass Mercedes Abalone Sheller II [facility] ([facility] (Formerly [facility]) 09/19/2023,4:37 PM documented in this encounter Plan of Treatment Upcoming Encounters Date Type Department Care Team ([facility] Contact Info) Description 09/30/2023 9:00 AM EDT Office Visit Pharmacy [address] [phone] Pharmacist2, [facility] [address] [address] Health Maintenance Due Date Last Done Comments [...] this encounter Medical Devices Implanted Type Area Dredge Pump Operator Device Identifier Shelf Expiration Date Model / Serial / Lot Sut Steel 6 M654g - [id number] Implanted:Qty: 4 on 06/18/2016 by Wicho Mason MD at OR [facility] [place] N/A: Sternum JNJ : [employer] 03/31/2021 [id number] / / [id number] Graft Marker Coronary - [id number] Implanted:Qty: 1 on 06/18/2016 by Wicho Mason MD at OR [facility] N/A: Aorta VM CARDIO VASCULAR 10/29/2017 [id number] / / [id number] documented as of this encounter Visit Diagnoses [...] Power of Attor morelia? No Care Teams Salt Manager Relationship Specialty Start Date End Date Joey Rose DO [address] [place] [phone] PCP - General Internal Medicine 12/03/20 documented as of this encounter
--- OUTSIDE RECORDS SUMMARY | 2023-11-02 14:16 | External Medical Summary | Summary of Care ---
Author Name Unknown Organization [facility] Address [address] [facility] [place] [address] Phone [phone] Care Team Providers Care Beam Builder Name Role Phone Joey Cody DO Primary Care Provid er Reason for Visit * Reason Comments eRx-Medication Refill Encounter Details Date Type Department Care Team ([facility] st Contact Info) Description 09/13/2023 Refill Family [facility] [address] [place] [address] Joey Cody DO [address] [place] [address] Allergies Active Allergy Reactions Criticality Noted Date Comments Pioglitazone Hydrochloride Other (Please comment) 11/19/2009 palpitations Erythromycin Base Rash 11/19/2009 Metformin 09/24/2011 Metformin Hcl Other (Please comment) 11/19/2009 palpitations Prednisone 11/19/2009 syncope documented as of this encounter (statuses as of 09/14/2023) Medications Medication Sig Dispensed Refills Start Date [...] Tablet Sublingual (Nitrostat)Indicati ons:Coronary artery disease involving [place] coronary artery of [place] heart without angina pectoris Place 1 Tablet [...] goal LDL below 70,Coronary artery disease involving [place] coronary artery of [place] heart without angina pectoris Take 1 Tablet [...] Hour (toPROL XL)Indications:Gabriele nary artery disease involving [place] coronary artery of [place] heart without angina pectoris TAKE ONE TABLET [...] a week. 4 Patch 0 4 Active Ibuprofen 600 MG Oral Tablet (Motrin) TAKE 1 TABLET BY MOUTH EVERY 8 HOURS NEEDED FOR PAIN, TAKE WITH FOOD 90 Tablet 3 4 Active Ibuprofen 600 MG Oral Tablet (IBU) TAKE 1 TABLET BY MOUTH EVERY 8 HOURS NEEDED FOR PAIN, TAKE WITH FOOD 90 Tablet 3 3 09/14/19 24 Discontinued documented as of this encounter (statuses as of 09/14/2023) Active Problems Problem Noted Date Diagnosed Date [...] as of this encounter (statuses as of 09/14/2023) Resolved Problems Problem Noted Date Diagnosed Date [...] as of this encounter (statuses as of 09/14/2023) Immunizations Name Administration Dates Next Due Pneumococcal [...] encounter Miscellaneous Notes * Telephone Encounter - Meka Tamayo [facility] - 09/14/2023 11:04 AM EDTSigned Prescriptions: Disp Refills Ibuprofen 600 MG Oral Tablet (Motrin) 90 Tab*3 Sig: TAKE 1 TABLET BY MOUTH EVERY 8 HOURS NEEDED FOR PAIN, TAKE WITH FOODAuthorizing Provider: JOEY CODY User: MEKA TAMAYO documented in this encounter Plan of Treatment Upcoming Encounters Date Type Department Care Team ([facility] Contact Info) Description 09/16/2023 11:20 AM EDT Office Visit Family [address] [phone] Mary Henderson PA-C [address] [place] [address] 09/28/2023 6:10 PM EDT Pharmacy Pharmacy [address] [phone] Pharmacist2, [facility] [address] [address] Health Maintenance Due Date Last Done Comments [...] this encounter Medical Devices Implanted Type Area Regeneration Operator Device Identifier Shelf Expiration Date Model / Serial / Lot Sut Steel 6 M654g - [id number] Implanted:Qty: 4 on 06/18/2016 by Wicho Mason MD at OR [facility] [place] N/A: Sternum JNJ : [employer] 03/31/2021 [id number] / / [id number] Graft Marker Coronary - [id number] Implanted:Qty: 1 on 06/18/2016 by Wicho Mason MD at OR [facility] [place] N/A: Aorta VM CARDIO VASCULAR 10/29/2017 [id number] / / [id number] documented as of this encounter Advance Directives Latest Code Status on File Code Status Date Activated Date Inactivated Comments Full Code 06/18/2016 1:14 PM 06/23/2016 4:44 PM This order reflects the patients wishes and were consensually agreed upon. Question Answer Comments Discussion of Advance Directives occurred with: Patient Does the patient have a Living Will? No Does the patient have Health Care Power of Bank Cashier? No Code Status History Code Status Date Activated Date Inactivated Comments Full Code 06/15/2016 6:13 PM 06/18/2016 7:28 AM This order reflects the patients wishes and were consensually agreed upon. Question Answer Comments Discussion of Advance Directives occurred with: Patient Does the patient have a Living Will? No Does the patient have Health Care Power of Bank Cashier? No Care Teams Beam Builder Relationship Specialty Start Date End Date Joey Cody DO [address] [place] [phone] PCP - General Internal Medicine 12/03/20 documented as of this encounter
--- OUTSIDE RECORDS SUMMARY | 2023-11-02 14:16 | External Medical Summary | Summary of Care ---
Author Name Unknown Organization [facility] Address [address] [facility] [place] [address] Phone [phone] Care Team Providers Care Color Making Supervisor Name Role Phone MikaylaalberJoey Lukas Primary Care Provid er Encounter Details Date Type Department Care Team (Late st Contact Info) Description 09/16/2023 Population Health External Data Unspecified Department Allergies [...] Tablet Sublingual (Nitrostat)Indicatio ns:Coronary artery disease involving [place] coronary artery of [place] heart without angina pectoris Place 1 Tablet [...] goal LDL below 70,Coronary artery disease involving [place] coronary artery of [place] heart without angina pectoris Take 1 Tablet [...] WITH FOOD 90 Tablet 3 09/14/2023 Active documented as of this encounter (statuses [...] Upcoming Encounters Date Type Department Care Team ([facility] Contact Info) Description 09/30/2023 9:00 AM EDT Office Visit Pharmacy [address] [phone] Pharmacist2, [facility] [address] [address] Health Maintenance Due Date Last Done Comments [...] this encounter Medical Devices Implanted Type Area Junior Linux Administrator Device Identifier Shelf Expiration Date Model / Serial / Lot Sut Steel 6 M654g - [id number] Implanted:Qty: 4 on 06/18/2016 by Wicho Mason MD at OR [facility] [place] N/A: Sternum JNJ : [employer] 03/31/2021 M654G / / [id number] Graft Marker Coronary - [id number] Implanted:Qty: 1 on 06/18/2016 by Wicho Mason MD at OR [facility] [place] N/A: Aorta VM CARDIO VASCULAR 10/29/2017 [id number] / / [id number] documented as of this encounter Advance Directives [...] Power of Attor morelia? No Care Teams Color Making Supervisor Relationship Specialty Start Date End Date Joey Rose DO [address] [place] [phone] PCP - General Internal Medicine 12/03/20 documented as of this encounter
--- OUTSIDE RECORDS SUMMARY | 2023-11-02 14:17 | External Medical Summary | Summary of Care ---
Author Name Unknown Organization [facility] Address [address] [facility] [place] [address] Phone [phone] Care Team Providers Care Rattling Machine Tender Name Role Phone Joey Cody DO Primary Care Provid er Reason for Visit * Reason Comments eRx-Medication Refill Encounter Details Date Type Department Care Team ([facility] st Contact Info) Description 08/20/2023 Refill Family Practice [facility] [address] [place] [address] Joey Cody DO [address] [place] [address] Recurrent major depressive disorder, in remission (HCC); HTN, goal below 140/90 Allergies Active Allergy Reactions Criticality Noted Date Comments Pioglitazone Hydrochloride Other (Please comment) 11/19/2009 palpitations Erythromycin Base Rash 11/19/2009 Metformin 09/24/2011 Metformin Hcl Other (Please comment) 11/19/2009 palpitations Prednisone 11/19/2009 syncope documented as of this encounter (statuses as of 08/20/2023) Medications Medication Sig Dispensed Refills Start Date [...] Tablet Sublingual (Nitrostat)Indicati ons:Coronary artery disease involving [place] coronary artery of [place] heart without angina pectoris Place 1 Tablet under the tongue as needed for Pain, Chest. May repeat 3 times. If chest pain continues, call 911. 25 Tablet 3 3 Active Insulin Syringe-Needle U-100 31G X 5/16" 1 ML (TRUEplus Insulin Syringe) Use as directed to administer insulin 200 Each 3 3 Active Tadalafil 20 MG Oral Tablet (Cialis)Indications :Other male erectile dysfunction Take 1 Tablet by mouth daily as needed for Erectile Dysfunction. 10 Tablet 3 3 Active Lisinopril 5 MG Oral Tablet (Prinivil)Indicatio ns:HTN, goal below 140/90,Dyslipidemia , goal LDL below 70,Coronary artery disease involving [place] coronary artery of [place] heart without angina pectoris Take 1 Tablet [...] Hour (toPROL XL)Indications:Gabriele nary artery disease involving [place] coronary artery of [place] heart without angina pectoris TAKE ONE TABLET BY MOUTH ONCE DAILY 90 Tablet 0 4 Active HYDROcodone-Acetami nophen 10-325 MG Oral TabletIndications:C hronic right-sided low back pain with right-sided sciatica Take 1 Tablet by mouth every 6 hours as needed for Pain, Moderate. 120 Tablet 0 4 Active tiZANidine HCl 4 MG Oral Tablet (Zanaflex)Indicatio ns:Chronic right-sided low back pain with right-sided sciatica Take 1 Tablet by mouth every 8 hours as needed for Muscle spasms. 90 Tablet 1 4 Active Buprenorphine 15 MCG/HR Transdermal Patch WeeklyIndications:S jose enrique stenosis of lumbar region without neurogenic claudication,Chroni c bilateral low back pain with bilateral sciatica Place 1 Patch topically on the skin once a week. 4 Patch 0 4 Active Sertraline HCl 100 MG [...] Oral Tablet (Norvasc)Indication s:HTN, goal below 140/90 Take 1 Tablet by mouth in the morning. 90 Tablet 1 3 08/20/19 24 Discontinued Sertraline HCl 100 MG Oral Tablet (Zoloft)Indications :Recurrent major depressive disorder, in remission (HCC) TAKE 1 TABLET BY MOUTH ONCE DAILY IN THE MORNING Strength: 100 mg 90 Tablet 1 3 08/20/19 24 Discontinued documented as of this encounter (statuses as of 08/20/2023) Active Problems Problem Noted Date Diagnosed Date [...] as of this encounter (statuses as of 08/20/2023) Resolved Problems Problem Noted Date Diagnosed Date [...] as of this encounter (statuses as of 08/20/2023) Immunizations Name Administration Dates Next Due Pneumococcal [...] encounter Miscellaneous Notes * Telephone Encounter - Mikaela Draper [facility] - 08/20/2023 8:09 AM EDT Signed Prescriptions: Disp Refills Sertraline HCl 100 MG Oral Tablet (Zoloft) 90 Tab*1 Sig: TAKE 1 TABLET BY MOUTH ONCE DAILY IN THE MORNINGAuthorizing Provider: JOEY CODY User: MIKAELA DRAPER amLODIPine Besylate 5 MG Oral Tablet (Norv*90 Tab*1 Sig: TAKE 1 TABLET BY M OUTH ONCE DAILY IN THE MORNINGAuthorizing Provider: JOEY CODY User: MIKAELA DRAPER documented in this encounter Plan of Treatment Upcoming Encounters Date Type Department Care Team ([facility] Contact Info) Description 08/31/2023 6:10 PM EDT Pharmacy Pharmacy [address] [phone] Pharmacist2, [facility] [address] [address] Health Maintenance Due Date Last Done Comments [...] this encounter Medical Devices Implanted Type Area Gear Machine Operator General Device Identifier Shelf Expiration Date Model / Serial / Lot Sut Steel 6 M654g - [id number] Implanted:Qty: 4 on 06/18/2016 by Wicho Mason MD at OR [facility] [place] N/A: Sternum JNJ : [employer] 03/31/2021 M654G / / [id number] Graft Marker Coronary - [id number] Implanted:Qty: 1 on 06/18/2016 by Wicho Mason MD at OR [facility] [place] N/A: Aorta VM CARDIO VASCULAR 10/29/2017 [id number] / / [id number] documented as of this encounter Visit Diagnoses Diagnosis Recurrent major depressive disorder, in remission (HCC) HTN, goal below 140/90 Unspecified essential hypertension documented in this encounter Advance Directives Latest Code Status on File Code Status Date Activated Date Inactivated Comments Full Code 06/18/2016 1:14 PM 06/23/2016 4:44 PM This order reflects the patients wishes and were consensually agreed upon. Question Answer Comments Discussion of Advance Directives occurred with: Patient Does the patient have a Living Will? No Does the patient have Health Care Power of Computer Systems Technician? No Code Status History Code Status Date Activated Date Inactivated Comments Full Code 06/15/2016 6:13 PM 06/18/2016 7:28 AM This order reflects the patients wishes and were consensually agreed upon. Question Answer Comments Discussion of Advance Directives occurred with: Patient Does the patient have a Living Will? No Does the patient have Health Care Power of Computer Systems Technician? No Care Teams Rattling Machine Tender Relationship Specialty Start Date End Date Joey Cody DO [address] [place] [id number] PCP - General Internal Medicine 12/03/20 documented as of this encounter
--- OUTSIDE RECORDS SUMMARY | 2023-11-02 14:17 | External Medical Summary | Summary of Care ---
Author Name Unknown Organization [facility] Address [address] [facility] [place] [address] Phone [phone] Care Team Providers Care Fence Installer Foreman Name Role Phone Joey Rose DO Primary Care Provid er Reason for Visit * Reason Onset Date Comments Test Results 07/29/2023 Encounter Details Date Type Department Care Team ([facility] Contact Info) Description 07/29/2023 Telephone Family Practice [address] [phone] Joey Rose DO [address] [place] [phone] Test Results Allergies Active Allergy Reactions Criticality Noted Date Comments Pioglitazone Hydrochloride Other (Please comment) 11/19/2009 palpitations Erythromycin Base Rash 11/19/2009 Metformin 09/24/2011 Metformin Hcl Other (Please comment) 11/19/2009 palpitations Prednisone 11/19/2009 syncope documented as of this encounter (statuses as of 08/02/2023) Medications Medication Sig Dispensed Refills Start Date End Date Status aspirin 81 MG chewable tablet Take 1 Tablet by mouth in the morning and 1 Tablet before bedtime. With food.. 100 Tab 0 10/02/2018 Active Diclofenac Sodium 1 % gelIndications:Gener [...] Tablet Sublingual (Nitrostat)Indicatio ns:Coronary artery disease involving naknek coronary artery of naknek heart without angina pectoris Place 1 Tablet under the tongue as needed for Pain, Chest. May repeat 3 times. If chest pain continues, call 911. 25 Tablet 3 05/17/2022 Active Insulin Syringe-Needle U-100 31G X 5/16" 1 ML (TRUEplus Insulin Syringe) Use as directed to administer insulin 200 Each 3 10/11/2022 Active Tadalafil 20 MG Oral Tablet (Cialis)Indications: Other male erectile dysfunction Take 1 Tablet by mouth daily as needed for Erectile Dysfunction. 10 Tablet 3 12/21/2022 Active Lisinopril 5 MG Oral Tablet (Prinivil)Indication s:HTN, goal below 140/90,Dyslipidemia, goal LDL below 70,Coronary artery disease involving naknek coronary artery of naknek heart without angina pectoris Take 1 Tablet by mouth in the morning. 90 Tablet 3 12/24/2022 Active amLODIPine Besylate 5 MG Oral Tablet (Norvasc)Indications :HTN, goal below 140/90 Take 1 Tablet by mouth in the morning. 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 60 mL 3 04/20/2023 Active Trulicity 4.5 MG/0.5ML Subcutaneous Solution Pen-injector (Dulaglutide) Inject 4.5 mg under the skin once a week. 6 mL 3 06/16/2023 Active Metoprolol Succinate ER 50 MG Oral Tablet Extended Release 24 Hour (toPROL XL)Indications:Coron austyn artery disease involving naknek coronary artery of naknek heart without angina pectoris TAKE ONE TABLET BY MOUTH ONCE DAILY 90 Tablet 0 06/27/2023 Active HYDROcodone-Acetamin ophen 10-325 MG Oral TabletIndications:Ch ronic right-sided low back pain with right-sided sciatica Take 1 Tablet by mouth every 6 hours as needed for Pain, Moderate. 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 4 Patch 0 07/05/2023 Active documented as of this encounter (statuses as of 08/02/2023) Active Problems Problem Noted Date Diagnosed Date [...] as of this encounter (statuses as of 08/02/2023) Resolved Problems Problem Noted Date Diagnosed Date [...] as of this encounter (statuses as of 08/02/2023) Immunizations Name Administration Dates Next Due Pneumococcal [...] encounter Miscellaneous Notes * Telephone Encounter - Dana Hanks MED ASSIST - 07/29/2023 9:39 AM EDT Pt aware. No other concerns at this time. * Telephone Encounter - Lizeth Bullard LPN - 07/29/2023 9:07 AM EDT ----- Message from Joey Rose DO sent at 07/29/2023 6:30 AM EDT ----- Reviewed patient's chest x-ray. Clear overall. Follow-up as scheduled documented in this encounter Plan of Treatment Upcoming Encounters Date Type Department Care Team ([facility] Contact Info) Description 08/03/2023 6:10 PM EDT Pharmacy Pharmacy [address] [phone] Pharmacist2, [facility] [address] [address] Health Maintenance Due Date Last Done Comments Pneumococcal Vaccine: 65+ Years (1 of 2 - PCV) 1948 DTaP,Tdap,and Td Vaccines (1 - Tdap) 1961 Zoster Vaccines (1 of 2) 1992 COVID-19 Vaccine (1 - season) 2022 Albumin/Creatinine Ratio 12/15/2023 023, 03/24/2022, 12/09/2021, Additional history exists Depression Screening 12/22/2023 12/21/2022 Diabetic Eye Exam 12/29/2023 12/28/2022, [...] this encounter Medical Devices Implanted Type Area Manager Of Network Device Identifier Shelf Expiration Date Model / Serial / Lot Sut Steel 6 M654g - [id number] Implanted:Qty: 4 on 06/18/2016 by Wicho Mason MD at OR [facility] [place] N/A: Sternum JNJ : [employer] 03/31/2021 [id number] / / [id number] Graft Marker Coronary - [id number] Implanted:Qty: 1 on 06/18/2016 by Wicho Mason MD at OR [facility] N/A: Aorta VM CARDIO VASCULAR 10/29/2017 [id number] / / [id number] documented as of this encounter Advance Directives [...] the patient have Health Care Power of Evening Or Night Nurse Supervisor? No Code Status History Code Status Date Activated Date Inactivated Comments Full Code 06/15/2016 6:13 PM 06/18/2016 7:28 AM This order reflects the patients wishes and were consensually agreed upon. Question Answer Comments Discussion of Advance Directives occurred with: Patient Does the patient have a Living Will? No Does the patient have Health Care Power of Evening Or Night Nurse Supervisor? No Care Teams Fence Installer Foreman Relationship Specialty Start Date End Date Joey Rose DO [address] [place] [address] PCP - General Internal Medicine 12/03/20 documented as of this encounter
--- OUTSIDE RECORDS SUMMARY | 2023-11-02 14:17 | External Medical Summary | Summary of Care ---
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 Joey Cody DO [address] [place] [address] Referral ID Status Reason Start Date Expiration Date V isits Requested Visits Authorized [id number] Pending Review 999 999 Reason for Visit * Reason Comments eRx-Medication Refill Encounter Details Date Type Department Care Team ([facility] st Contact Info) Description 08/03/2023 Refill Family Practice [facility] [address] [place] [address] Joey Cody DO [address] [place] [address] Spinal stenosis of lumbar region without neurogenic claudication; Chronic bilateral low back pain with bilateral sciatica Allergies Active Allergy Reactions Criticality Noted Date Comments Pioglitazone Hydrochloride Other (Please comment) 11/19/2009 palpitations Erythromycin Base Rash 11/19/2009 Metformin 09/24/2011 Metformin Hcl Other (Please comment) 11/19/2009 palpitations Prednisone 11/19/2009 syncope documented as of this encounter (statuses as of 08/05/2023) Medications Medication Sig Dispensed Refills Start Date [...] Tablet Sublingual (Nitrostat)Indicati ons:Coronary artery disease involving assiniboine and g[place] ventre tribes coronary artery of assiniboine and [place] tribes heart without angina pectoris Place 1 [...] goal LDL below 70,Coronary artery disease involving [place] and [place] tribes coronary artery of ass[place] and [place] tribes heart without angina pectoris Take 1 Tablet by mouth in the morning. 90 Tablet 3 3 Active amLODIPine Besylate 5 MG Oral Tablet (Norvasc)Indication s:HTN, goal below 140/90 Take 1 Tablet by mouth in the morning. 90 Tablet 1 3 Active Sertraline HCl 100 MG Oral Tablet (Zoloft)Indications :Recurrent major depressive disorder, in remission (HCC) TAKE 1 TABLET BY MOUTH ONCE DAILY IN THE MORNING Strength: 100 mg 90 Tablet 1 3 Active Atorvastatin Calcium 80 MG Oral [...] gangrene, with long-term current use of insulin ([facility]) use up to 4 times a day as directed 100 Each 5 3 Active Ibuprofen 600 MG Oral Tablet (IBU) TAKE 1 TABLET BY MOUTH EVERY 8 HOURS NEEDED FOR PAIN, TAKE WITH FOOD 90 Tablet 3 3 Active Blood Glucose Test Strips 333 In Vitro StripIndications:Ty pe 2 diabetes mellitus with diabetic peripheral angiopathy without gangrene, with long-term current use of insulin ([facility]) Use to check sugar 4 times daily [...] Hour (toPROL XL)Indications:Gabriele nary artery disease involving assiniboine and gros [place]re tribes coronary artery of assiniboine and g[place] tribes heart without angina pectoris TAKE ONE [...] once a week. 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 Chronic [...] as of this encounter (statuses as of 08/05/2023) Resolved Problems Problem Noted Date Diagnosed Date [...] as of this encounter (statuses as of 08/05/2023) Immunizations Name Administration Dates Next Due Pneumococcal [...] encounter Miscellaneous Notes * Telephone Encounter - Jeanmarie Oneal CPhT - 08/05/2023 8:59 AM EDT Patients insurance would like to inform the office that buprenorphine patch 15, is not requiring review because "No review is needed for this medication, test claims approve as well as future test claims, medication is preferred per members formulary, prescriber just needs to send prescription to pharmacy" Rx released Thank you, Dominick Oneal ([facility]) Circuit Board Assembler III [facility] ([facility]) 08/05/2023, 8:59 AM * Telephone Encounter - Joey Cody DO - 08/05/2023 7:01 AM EDT Signed Prescriptions: Disp Refills Buprenorphine 15 MCG/HR Transdermal Patch *4 Patch0 Sig: Place 1 Patch topically on the skin once a week. Authorizing Provider: JOEY CODY * Telephone Encounter - Biscotto, Senait T, [facility] - 08/04/2023 9:23 AM EDTPending Prescriptions: Disp Refills Buprenorphine 15 MCG/HR Transdermal Patch *4 Patch0 Sig: Place 1 Patch topically on the skin once a week. * Telephone Encounter - Senait Fish [facility] - 08/04/2023 9:22 AM EDT I have reviewed the patients controlled substance dispensing history in the Prescription Drug Monitoring Program in compliance with the [facility] regulations before prescribing a controlled substance. PDMP checked on 08/04/2023. Pending Prescriptions: Disp Refills Buprenorphine 15 MCG/HR Transdermal Patch*4 Patch0 Sig: Place 1 Patch topically on the skin once a week. Last Visit: 07/20/2023 (in office), Visit date not found (telemedicine) Next Visit: Visit date not found Date medication was last filled: 07/04 Date medication is due for refill: 07/31 Pharmacy: [facility] [address] Is this request for a controlled substance? Yes and Urine Drug Screen Not completed Toxicology results: Results for orders placed [...] request. Please approve if appropriate. Thank you, Senait Fish, PharmD Clinical Pharmacist [facility] ([facility] (formerly [facility]) [phone] 08/04/2023, 9:22 AM documented in this encounter Plan of Treatment Upcoming Encounters Date Type Department Care Team ([facility] st Contact Info) Description 08/31/2023 6:10 PM EDT Pharmacy Pharmacy [address] [phone] Pharmacist2, [facility] [address] [address] Health Maintenance Due Date Last Done Comments [...] this encounter Medical Devices Implanted Type Area Sas Developer Analyst Device Identifier Shelf Expiration Date Model / Serial / Lot Sut Steel 6 M654g - [id number] Implanted:Qty: 4 on 06/18/2016 by Wicho Mason MD at OR [facility] [place] N/A: Sternum JNJ : [employer] 03/31/2021 [id number] / / [id number] Graft Marker Coronary - [id number] Implanted:Qty: 1 on 06/18/2016 by Wicho Mason MD at OR [facility] N/A: Aorta VM CARDIO VASCULAR 10/29/2017 [id number] / / [id number] documented as of this encounter Visit Diagnoses [...] the patient have Health Care Power of Veneer Sample Maker? No Code Status History Code Status Date Activated Date Inactivated Comments Full Code 06/15/2016 6:13 PM 06/18/2016 7:28 AM This order reflects the patients wishes and were consensually agreed upon. Question Answer Comments Discussion of Advance Directives occurred with: Patient Does the patient have a Living Will? No Does the patient have Health Care Power of Veneer Sample Maker? No Care Teams Landscape Contractor Relationship Specialty Start Date End Date Joey Cody DO [address] [place] [address] PCP - General Internal Medicine 12/03/20 documented as of this encounter
--- OUTSIDE RECORDS SUMMARY | 2023-11-02 14:17 | External Medical Summary | Summary of Care ---
Author Name Unknown Organization [facility] Address [address] [facility] [address] Phone [phone] Care Team Providers Care Market Research Executive Name Role Phone Joey Cody DO Primary Care Provid er Reason for Visit * Reason Comments eRx-Medication Refill Encounter Details Date Type Department Care Team ([facility] Contact Info) Description 08/29/2023 Refill [address] [phone] Pharmacist2, [facility] [address] [address] Allergies Active Allergy Reactions Criticality Noted Date Comments Pioglitazone Hydrochloride Other (Please comment) 11/19/2009 palpitations Erythromycin Base Rash 11/19/2009 Metformin 09/24/2011 Metformin Hcl Other (Please comment) 11/19/2009 palpitations Prednisone 11/19/2009 syncope documented as of this encounter (statuses as of 08/31/2023) Medications Medication Sig Dispensed Refills Start Date End Date Status aspirin 81 MG chewable tablet Take 1 Tablet by mouth in the morning and 1 Tablet before bedtime. With food.. 100 Tab 0 10/02/2018 Active Diclofenac Sodium 1 % gelIndications:Gene [...] Tablet Sublingual (Nitrostat)Indicati ons:Coronary artery disease involving grindstone coronary artery of grindstone heart without angina pectoris Place 1 Tablet [...] goal LDL below 70,Coronary artery disease involving grindstone coronary artery of grindstone heart without angina pectoris Take 1 Tablet [...] Hour (toPROL XL)Indications:Gabriele nary artery disease involving grindstone coronary artery of grindstone heart without angina pectoris TAKE ONE TABLET BY MOUTH ONCE DAILY 90 Tablet 0 06/27/2023 Active tiZANidine HCl 4 MG Oral Tablet (Zanaflex)Indicatio ns:Chronic right-sided low back pain with right-sided sciatica Take 1 Tablet by mouth every 8 hours as needed for Muscle spasms. 90 Tablet 1 08/01/2023 Active Buprenorphine 15 MCG/HR Transdermal Patch WeeklyIndications:S jose enrique stenosis of lumbar region without neurogenic claudication,Chroni c bilateral low back pain with bilateral sciatica Place 1 Patch topically on the skin once a week. 4 Patch 0 08/05/2023 Active HYDROcodone-Acetami nophen 10-325 MG Oral TabletIndications:C hronic right-sided low back pain with right-sided sciatica Take 1 Tablet by mouth every 6 hours as needed for Pain, Moderate. 120 Tablet 0 08/21/2023 Active Sertraline HCl 100 MG Oral [...] insulin DIRECTED 200 Each 3 08/31/2023 Active Insulin Syringe-Needle U-100 31G X 5/16" 1 ML (TRUEplus Insulin Syringe) Use as directed to administer insulin 200 Each 3 10/11/2022 4 Discontinu ed(Refill) documented as of this encounter (statuses as of 08/31/2023) Active Problems Problem Noted Date Diagnosed Date [...] as of this encounter (statuses as of 08/31/2023) Resolved Problems Problem Noted Date Diagnosed Date [...] as of this encounter (statuses as of 08/31/2023) Immunizations Name Administration Dates Next Due Pneumococcal [...] encounter Miscellaneous Notes * Telephone Encounter - Allen Kurtz [facility] - 08/31/2023 9:18 AM EDTSigned Prescriptions: Disp Refills BD Insulin Syringe U/F 31G X 5/16" 1 ML (I*200 Ea*3 Sig: use twice daily with insulin DIRECTEDAuthorizing Provider: JOEY CODY User: ALLEN KURTZ documented in this encounter Plan of Treatment Upcoming Encounters Date Type Department Care Team ([facility] Contact Info) Description 08/31/2023 6:10 PM EDT Pharmacy Pharmacy [address] [phone] Pharmacist2, [address] [address] Type 2 diabetes mellitus with diabetic peripheral angiopathy without gangrene, with long-term current use of insulin (HCC)* 09/28/2023 6:10 PM EDT Pharmacy Pharmacy [address] [phone] Pharmacist2, [address] [address] Health Maintenance Due Date Last Done Comments [...] this encounter Medical Devices Implanted Type Area Sql Programmer Analyst Device Identifier Shelf Expiration Date Model / Serial / Lot Sut Steel 6 M654g - [id number] Implanted:Qty: 4 on 06/18/2016 by Wicho Mason MD at [place] [facility] N/A: Sternum JNJ : [employer] 03/31/2021 [id number] / / [id number] Graft Marker Coronary - [id number] Implanted:Qty: 1 on 06/18/2016 by Wicho Mason MD at [place] [facility] [place] N/A: Aorta VM CARDIO VASCULAR 10/29/2017 [id number] / / [id number] documented as of this encounter Advance Directives [...] the patient have Health Care Power of Financial Advisor Trainee? No Code Status History Code Status Date Activated Date Inactivated Comments Full Code 06/15/2016 6:13 PM 06/18/2016 7:28 AM This order reflects the patients wishes and were consensually agreed upon. Question Answer Comments Discussion of Advance Directives occurred with: Patient Does the patient have a Living Will? No Does the patient have Health Care Power of Financial Advisor Trainee? No Care Teams Market Research Executive Relationship Specialty Start Date End Date Joey Cody DO [address] [place] [address] PCP - General Internal Medicine 12/03/20 documented as of this encounter
--- OUTSIDE RECORDS SUMMARY | 2023-11-02 14:17 | External Medical Summary | Summary of Care ---
Author Name Unknown Organization [facility] Address [address] [facility] [place] [address] Phone [phone] Care Team Providers Care Plant Cytologist Name Role Phone Joey Cody DO Primary Care Provid er Reason for Referral * Medication Prior Authorization - Pending Review Specialty Diagnoses / Procedures Referred By Ming ruiz Referred To Contact Diagnoses Chronic right-sided low back pain with right-sided sciatica Joey Cody DO [address] [place] [address] Referral ID Status Reason Start Date Expiration Date V isits Requested Visits Authorized [id number] Pending Review 999 999 Reason for Visit * Reason Comments eRx-Medication Refill Encounter Details Date Type Department Care Team ([facility] Contact Info) Description 08/17/2023 Refill Family Practice [facility] [address] [place] [address] Joey Cody DO [address], [place] [id number] Chronic right-sided low back pain with right-sided sciatica Allergies Active Allergy Reactions Criticality Noted Date Comments Pioglitazone Hydrochloride Other (Please comment) 11/19/2009 palpitations Erythromycin Base Rash 11/19/2009 Metformin 09/24/2011 Metformin Hcl Other (Please comment) 11/19/2009 palpitations Prednisone 11/19/2009 syncope documented as of this encounter (statuses as of 08/26/2023) Medications Medication Sig Dispensed Refills Start Date [...] Tablet Sublingual (Nitrostat)Indicati ons:Coronary artery disease involving wales coronary artery of wales heart without angina pectoris Place 1 Tablet [...] goal LDL below 70,Coronary artery disease involving wales coronary artery of wales heart without angina pectoris Take 1 Tablet [...] Hour (toPROL XL)Indications:Gabriele nary artery disease involving wales coronary artery of wales heart without angina pectoris TAKE ONE TABLET [...] a week. 4 Patch 0 4 Active HYDROcodone-Acetami nophen 10-325 MG Oral TabletIndications:C hronic right-sided low back pain with right-sided sciatica Take 1 Tablet by mouth every 6 hours as needed for Pain, Moderate. 120 Tablet 0 4 Active amLODIPine Besylate 5 MG Oral Tablet (Norvasc)Indication s:HTN, goal below 140/90 Take 1 Tablet by mouth in the morning. 90 Tablet 1 3 08/20/19 24 Discontinued Sertraline HCl 100 MG Oral Tablet (Zoloft)Indications :Recurrent major depressive disorder, in remission (HCC) TAKE 1 TABLET BY MOUTH ONCE DAILY IN THE MORNING Strength: 100 mg 90 Tablet 1 3 08/20/19 24 Discontinued HYDROcodone-Acetami nophen 10-325 MG Oral TabletIndications:C hronic right-sided low back pain with right-sided sciatica Take 1 Tablet by mouth every 6 hours as needed for Pain, Moderate. 120 Tablet 0 4 08/21/19 24 Discontinued documented as of this encounter (statuses as of 08/26/2023) Active Problems Problem Noted Date Diagnosed Date [...] as of this encounter (statuses as of 08/26/2023) Resolved Problems Problem Noted Date Diagnosed Date [...] as of this encounter (statuses as of 08/26/2023) Immunizations Name Administration Dates Next Due Pneumococcal [...] encounter Miscellaneous Notes * Telephone Encounter - Liudmila De La Cruz PHARM Tech - 08/26/2023 11:53 AM EDT Pt calling to request HYDROcodone-Acetaminophen 10-325 MG Oral Tablet . Informed pt that RX is available at their pharmacy. Pt verbalized understanding and stated they will check with their pharmacy regarding this medication. Thank you, Liudmila De La Cruz [facility] 08/26/2023,11:53 AM * Telephone Encounter - Liudmila De La Cruz PHARM Tech - 08/22/2023 11:23 AM EDT Pt calling to request HYDROcodone-Acetaminophen 10-325 MG Oral . Informed pt that RX is available at their pharmacy. Pt verbalized understanding and stated they will check with their pharmacy regarding this medication. Thank you, Liudmila De La Cruz [facility] 08/22/2023,11:23 AM * Telephone Encounter - Joey Cody DO - 08/21/2023 10:09 PM EDT Signed Prescriptions: Disp Refills HYDROcodone-Acetaminophen 10-325 MG Oral T*120 Ta*0 Sig: Take 1 Tablet by mouth every 6 hours as needed for Pain, Moderate. Authorizing Provider: JOEY CODY * Telephone Encounter - Wicho Hardin, [facility] - 08/18/2023 11:27 AM EDTPending Prescriptions: Disp Refills HYDROcodone-Acetaminophen 10-325 MG Oral T*120 Ta*0 Sig: Take 1 Tablet by mouth every 6 hours as needed for Pain, Moderate. * Telephone Encounter - Wicho Hardin, [facility] - 08/18/2023 11:26 AM EDT I have reviewed the patients controlled substance dispensing history in the Prescription Drug Monitoring Program in compliance with the [facility] regulations before prescribing a controlled substance. PDMP checked on 08/18/2023. Pending Prescriptions: Disp Refills HYDROcodone-Acetaminophen 10-325 MG Oral *120 Ta*0 Sig: TAKE 1 TABLET BY MOUTH EVERY 6 HOURS NEEDED FOR MODERATE PAIN Last Visit: 07/20/2023 (in office), Visit date not found (telemedicine) Next Visit: Visit date not found Date medication was last filled: 07/05/23 Date medication is due for refill: 08/03/23 Pharmacy: [facility] Is this request for a controlled [...] upon request. Please approve if appropriate. Thank You, Wicho Diaz [facility] Clinical Pharmacist [facility] 08/18/2023, 11:26 AM documented in this encounter Plan of Treatment Upcoming Encounters Date Type Department Care Team ([facility] st Contact Info) Description 08/31/2023 6:10 PM EDT Pharmacy Pharmacy [address] [phone] Pharmacist2, [facility] [address] [address] Health Maintenance Due Date Last Done Comments [...] this encounter Medical Devices Implanted Type Area Combination Man Device Identifier Shelf Expiration Date Model / Serial / Lot Sut Steel 6 [id number] - [id number] Implanted:Qty: 4 on 06/18/2016 [place] [facility]: Sternum JNJ : [employer] 03/31/2021 [id number] / / [id number] Graft Marker Coronary - [id number] Implanted:Qty: 1 on 06/18/2016 by Wich[place] Mason [place] [facility]A: Aorta VM CARDIO VASCULAR 10/29/2017 [id number] / / [id number] documented as of this encounter Visit Diagnoses [...] the patient have Health Care Power of Cops? No Code Status History Code Status Date Activated Date Inactivated Comments Full Code 06/15/2016 6:13 PM 06/18/2016 7:28 AM This order reflects the patients wishes and were consensually agreed upon. Question Answer Comments Discussion of Advance Directives occurred with: Patient Does the patient have a Living Will? No Does the patient have Health Care Power of Cops? No Care Teams Plant Cytologist Relationship Specialty Start Date End Date Joey Cody DO [address] [place] [id number] PCP - General Internal Medicine 12/03/20 documented as of this encounter
--- OUTSIDE RECORDS SUMMARY | 2023-11-02 14:17 | External Medical Summary | Summary of Care ---
Author Name Unknown Organization [facility] Address [address] [facility] [place] [address] Phone [phone] Care Team Providers Care Paper Box Maker Name Role Phone Joey Cody DO Primary Care Provid er Reason for Visit * Reason Comments eRx-Medication Refill Encounter Details Date Type Department Care Team ([facility] st Contact Info) Description 07/31/2023 Refill Family [facility] [address] [place] [address] Joey Cody DO [address] [place] [id number] Chronic right-sided low back pain with right-sided sciatica Allergies Active Allergy Reactions Criticality Noted Date Comments Pioglitazone Hydrochloride Other (Please comment) 11/19/2009 palpitations Erythromycin Base Rash 11/19/2009 Metformin 09/24/2011 Metformin Hcl Other (Please comment) 11/19/2009 palpitations Prednisone 11/19/2009 syncope documented as of this encounter (statuses as of 08/01/2023) Medications Medication Sig Dispensed Refills Start Date [...] Tablet Sublingual (Nitrostat)Indicati ons:Coronary artery disease involving jamul coronary artery of jamul heart without angina pectoris Place 1 Tablet [...] goal LDL below 70,Coronary artery disease involving jamul coronary artery of jamul heart without angina pectoris Take 1 Tablet [...] Hour (toPROL XL)Indications:Gabriele nary artery disease involving jamul coronary artery of jamul heart without angina pectoris TAKE ONE TABLET BY MOUTH ONCE DAILY 90 Tablet 0 4 Active HYDROcodone-Acetami nophen 10-325 MG Oral TabletIndications:C hronic right-sided low back pain with right-sided sciatica Take 1 Tablet by mouth every 6 hours as needed for Pain, Moderate. 120 Tablet 0 4 Active Buprenorphine 15 MCG/HR Transdermal Patch WeeklyIndications:S jose enrique stenosis of lumbar region without neurogenic claudication,Chroni c bilateral low back pain with bilateral sciatica Place 1 Patch topically on the skin once a week. 4 Patch 0 4 Active tiZANidine HCl 4 MG Oral Tablet (Zanaflex)Indicatio ns:Chronic right-sided low back pain with right-sided sciatica Take 1 Tablet by mouth every 8 hours as needed for Muscle spasms. 90 Tablet 1 4 Active tiZANidine HCl 4 MG Oral Tablet (Zanaflex)Indicatio ns:Chronic right-sided low back pain with right-sided sciatica Take 1 Tablet by mouth every 8 hours as needed for Muscle spasms. 90 Tablet 1 3 08/01/19 24 Discontinued documented as of this encounter (statuses as of 08/01/2023) Active Problems Problem Noted Date Diagnosed Date [...] as of this encounter (statuses as of 08/01/2023) Resolved Problems Problem Noted Date Diagnosed Date [...] as of this encounter (statuses as of 08/01/2023) Immunizations Name Administration Dates Next Due Pneumococcal [...] Telephone Encounter - Joey Cody DO - 08/01/2023 12:59 PM EDT Signed Prescriptions: Disp Refills tiZANidine HCl 4 MG Oral Tablet (Zanaflex) 90 Tab*1 Sig: Take 1 Tablet by mouth every 8 hours as needed for Muscle spasms. Authorizing Provider: JOEY CODY * Telephone Encounter - Manuela Petit LPN - 08/01/2023 11:34 AM EDTPending Prescriptions: Disp Refills tiZANidine HCl 4 MG Oral Tablet [Pharmacy *90 Tab*1 Sig: Take 1 Tablet by mouth every 8 hours as needed for Muscle spasms. * Telephone Encounter - Manuela Petit LPN - 08/01/2023 11:34 AM EDT 07/20/2023 (in office), Visit date not found (telemedicine) Next appt: Visit date not found Pending Prescriptions: Disp Refills tiZANidine HCl 4 MG Oral Tablet (Zanaflex*90 Tab*1 Sig: Take 1 Tablet by mouth every 8 hours as needed for Muscle spasms. * Telephone Encounter - JosianeWander - 07/31/2023 1:27 PM EDTPending Prescriptions: Disp Refills tiZANidine HCl 4 MG Oral Tablet [Pharmacy *90 Tab*1 Sig: Take 1Tablet by mouth every 8 hours as needed for Muscle spasms. documented in this encounter Plan of Treatment Upcoming Encounters Date Type Department Care Team ([facility] Contact Info) Description 08/03/2023 6:10 PM EDT Pharmacy Pharmacy [address] [phone] Pharmacist2, [facility] [address] [address] Health Maintenance Due Date Last Done Comments Pneumococcal Vaccine: 65+ Years (1 of 2 - PCV) 1946 DTaP,Tdap,and Td Vaccines (1 - Tdap) 1961 Zoster Vaccines (1 of 2) 1992 COVID-19 Vaccine (1 - season) 2022 Albumin/Creatinine Ratio 12/15/20232 023, 03/24/2022, 12/09/2021, Additional history exists Depression [...] this encounter Medical Devices Implanted Type Area Lubrication Supervisor Device Identifier Shelf Expiration Date Model / Serial / Lot Sut Steel 6 M654g - [id number] Implanted:Qty: 4 on 06/18/2016 by Wicho Mason MD at [place] [facility] [place] N/A: Sternum JNJ : [employer] 03/31/2021 [id number] / / [id number] Graft Marker Coronary - [id number] Implanted:Qty: 1 on 06/18/2016 by Wicho Mason MD at [place] [facility] [place] N/A: Aorta VM CARDIO VASCULAR 10/29/2017 [id number] / / [id number] documented as of this encounter Visit Diagnoses [...] the patient have Health Care Power of Promotion Manager? No Code Status History Code Status Date Activated Date Inactivated Comments Full Code 06/15/2016 6:13 PM 06/18/2016 7:28 AM This order reflects the patients wishes and were consensually agreed upon. Question Answer Comments Discussion of Advance Directives occurred with: Patient Does the patient have a Living Will? No Does the patient have Health Care Power of Promotion Manager? No Care Teams Paper Box Maker Relationship Specialty Start Date End Date Joey Cody DO [address] [place] [address] PCP - General Internal Medicine 12/03/20 documented as of this encounter
--- OUTSIDE RECORDS SUMMARY | 2023-11-02 14:17 | External Medical Summary | Summary of Care ---
Author Name Unknown Organization [facility] Address [address] [facility] [place] [address] Phone [phone] Care Team Providers Care Customer Success Specialist Name Role Phone Joey Rose DO Primary Care Provid er Reason for Visit * Reason Comments Follow Up Patient is here toda y for a 3 month return.Patient states his sugar has been running highAlso states he hasn't been eating the greatest Encounter Details Date Type Department Care Team (Late st Contact Info) Description 07/20/2023 3:20 PM EDT Office Visit [address] [phone] Joey Rose DO [address] [place] [phone] Dyspnea on exertion*; Type 2 diabetes mellitus with diabetic peripheral angiopathy without gangrene, with long-term current use of insulin ([facility]); Hyperlipidemia associated with type 2 diabetes mellitus ([facility]); Hypertension associated with type 2 diabetes mellitus ([facility]); Controlled substance agreement signed; Chronic obstructive pulmonary disease, unspecified COPD type ([facility]); Coronary artery disease involving [place] coronary artery of [place] heart without angina pectoris; Ischemic cardiomyopathy; Recurrent major depressive disorder, in remission ([facility]); Spinal stenosis of lumbar region without neurogenic claudication Allergies Active Allergy Reactions Criticality Noted Date Comments Pioglitazone Hydrochloride Other (Please comment) 11/19/2009 palpitations Erythromycin Base Rash 11/19/2009 Metformin 09/24/2011 Metformin Hcl Other (Please comment) 11/19/2009 palpitations Prednisone 11/19/2009 syncope documented as of this encounter (statuses as of 07/20/2023) Medications Medication Sig Dispensed Refills Start Date [...] Tablet Sublingual (Nitrostat)Indicatio ns:Coronary artery disease involving [place] coronary artery of [place] heart without angina pectoris Place 1 Tablet [...] goal LDL below 70,Coronary artery disease involving [place] coronary artery of [place] heart without angina pectoris Take 1 Tablet [...] WITH FOOD 90 Tablet 3 04/05/2023 Active tiZANidine HCl 4 MG Oral Tablet (Zanaflex)Indication s:Chronic right-sided low back pain with right-sided sciatica Take 1 Tablet by mouth every 8 hours as needed for Muscle spasms. 90 Tablet 1 04/05/2023 Active Blood Glucose Test Strips 333 In Vitro StripIndications:Typ e 2 diabetes mellitus with diabetic peripheral angiopathy without gangrene, with long-term current use of insulin ([facility]) Use to check sugar 4 times [...] Hour (toPROL XL)Indications:Coron [place] artery disease involving [place] coronary artery of [place] heart without angina pectoris TAKE ONE TABLET [...] as of this encounter (statuses as of 07/20/2023) Active Problems Problem Noted Date Diagnosed Date [...] as of this encounter (statuses as of 07/20/2023) Resolved Problems Problem Noted Date Diagnosed Date [...] as of this encounter (statuses as of 07/20/2023) Immunizations Name Administration Dates Next Due Pneumococcal [...] Sign Reading Time Taken Comments Blood Pressure 132/74 07/20/2023 3:17 PM EDT Pulse 75 07/20/2023 3:17 PM EDT Temperature 36.6 C (97.9 F) 07/20/2023 3:17 PM ED T Respiratory Rate 18 07/20/2023 3:17 PM EDT Oxygen Saturation 97% 07/20/2023 3:17 PM EDT Inhaled Oxygen Concentration - - Weight 113.3 kg (249 lb 12.8 oz) 07/20/2023 3:17 PM EDT Height - - Body Mass Index 39.12 02/11/2023 12:49 PM EDT documented in this encounter Functional Status [...] as of this encounter Progress Notes * Joey Rose, DO - 07/20/2023 3:29 PM EDT Subjective Samuel Roman is a 83 year old male. Chief Complaint Patient presents with Follow Up Patient is here today for a 3 month return. Patient states his sugar has been running high Also states he hasn't been eating the greatest HPI: Patient presents to office for routine follow up. Labs work done, results reviewed with patient. Medication list reviewed. Patient states he has been noting some occasional dyspnea on exertion. Will definitely noted with activities such as pushing his Will barrel. Heats his home with coal. Sometimes can note with just walking however it is not as bad. He does not note any shortness of breath at rest. Does not note any chest pain or palpitations. No dizziness/lightheadedness. No cough or wheezing. Does have history ofCAD, ischemic cardiomyopathy. Last EF 35 % or so on echocardiogram May 2021. Does not note any increased swelling in his legs or abdomen. Type 2 diabetes maintained on Trulicity 4.5 mg injected weekly, Novolin 70-3055 units injected twice daily. Was previously on glipizide but had been seen at the end of 2022 for hypoglycemic episodes.This was stopped. Most recent A1c well controlled at 6.3. Foot exam done today. Eye exam up-to-date. No acute issues Hypertension, hyperlipidemia tolerating current medication regimen. No adverse medication side effects. No symptoms noted be consistent with elevation of baseline blood pressure. Recent labs showed stable renal function, electrolytes. Previous total/LDL cholesterol at goal Patient has history of chronic pain syndrome related to lumbar spondylosis, DDD, radiculopathy, spinal stenosis. No acute worsening of his pain. No acute cord compressive symptoms noted. Is maintained on regimen of Butrans 15 microgram/hour patch weekly, hydrocodone/APAP 10-325 mg 1 tablet every 6 hours as needed for breakthrough pain. Tolerating both medications without side effects. PDMP checked without issues. Med use agreement on file. UDS up-to-date. Medication has controlled his moderate to severe pain for some time. PMH: Patient Active Problem List Diagnosis Code Type 2 diabetes mellitus with diabetic peripheral angiopathy without gangrene, with long-term current use of insulin ([facility]) E11.51, Z79.4 Hypertension associated with type 2 diabetes mellitus ([facility]) E11.59, I15.2 Controlled substance agreement signed Z79.899 CAD (coronary artery disease) I25.10 Chronic back pain M54.9, G89.29 Mild nonproliferative diabetic retinopathy of both eyes without macular edema associated with type 2 diabetes mellitus ([facility]) E11.3293 Combined form of age-related cataract, both eyes H25.813 Vitamin D deficiency E55.9 Chronic obstructive pulmonary disease ([facility]) J44.9 Old myocardial infarct I25.2 History of amputation of lesser toe of right foot ([facility]) Z89.421 Severe obesity with body mass index (BMI) of 35.0 to 39.9 with serious comorbidity ([facility]) E66.01 Spinal stenosis of lumbar region without neurogenic claudication M48.061 Essential tremor G25.0 Epididymal cyst N50.3 Hyperlipidemia associated with type 2 diabetes mellitus ([facility]) E11.69, E78.5 Ischemic cardiomyopathy I25.5 Recurrent major depressive disorder, in remission ([facility]) F33.40 Chronic pain syndrome G89.4 Current Outpatient Medications Medication Sig Dispense Refill aspirin 81 MG chewable tablet Take 1 Tablet by mouth in the morning and 1 Tablet before bedtime. With food.. 100 Tab 0 Diclofenac Sodium 1 % gel apply two grams topically to affected area(s) twice daily as directed (Patient taking differently: No sig reported) 100 g 5 Insulin Syringe 31G X 5/16" 1 ML Inject under the skin. Inject under skin 2 times daily as directedDx: DM type 2, goal: symptom mgmt, E11.9 100 Each 5 Nitroglycerin 0.4 MG Sublingual Tablet Sublingual (Nitrostat) Place 1 Tablet under the tongue as needed for Pain, Chest. May repeat 3 times. If chest pain continues, call 911. 25 Tablet 3 Insulin Syringe-Needle U-100 31G X 5/16" 1 ML (TRUEplus Insulin Syringe) Use as directed to administer insulin 200 Each 3 Lisinopril 5 MG Oral Tablet (Prinivil) Take 1 Tablet by mouth in the morning. 90 Tablet 3 amLODIPine Besylate 5 MG Oral Tablet (Norvasc) Take 1 Tablet by mouth in the morning. 90 Tablet 1 Sertraline HCl 100 MG Oral Tablet (Zoloft) TAKE 1 TABLET BY MOUTH ONCE DAILY IN THE MORNING Strength: 100 mg 90 Tablet 1 Atorvastatin Calcium 80 MG Oral Tablet (Lipitor) TAKE ONE TABLET BY MOUTH ONCE DAILY 90 Tablet 3 Furosemide 40 MG Oral Tablet (Lasix) TAKE 1 TABLET BY MOUTH ONCE DAILY IN THE MORNING 90 Tablet 1 OneTouch Delica Lancets 33G use up to 4 times a day as directed 100 Each 5 Ibuprofen 600 MG Oral Tablet (IBU) TAKE 1 TABLET BY MOUTH EVERY 8 HOURS NEEDED FOR PAIN, TAKE WITH FOOD 90 Tablet 3 tiZANidine HCl 4 MG Oral Tablet (Zanaflex) Take 1 Tablet by mouth every 8 hours as needed for Muscle spasms. 90 Tablet 1 Blood Glucose Test Strips 333 In Vitro Strip Use to check sugar 4 times daily 400 Strip 11 NovoLIN 70/30 (70-30) 100 UNIT/ML Subcutaneous Suspension (Insulin NPH Isophane & Regular) INJECT 55 UNITS UNDER THE SKIN TWICE DAILY, BEFORE BREAKFAST AND DINNER. 60 mL 3 Trulicity 4.5 MG/0.5ML Subcutaneous Solution Pen-injector (Dulaglutide) Inject 4.5 mg under the skin once a week. 6 mL 3 Metoprolol Succinate ER 50 MG Oral Tablet Extended Release 24 Hour (toPROL XL) TAKE ONE TABLET BY MOUTH ONCE DAILY 90 Tablet 0 HYDROcodone-Acetaminophen 10-325 MG Oral Tablet Take 1 Tablet by mouth every 6 hours as needed for Pain, Moderate. 120 Tablet 0 Tadalafil 20 MG Oral Tablet (Cialis) Take 1 Tablet by mouth daily as needed for Erectile Dysfunction. 10 Tablet 3 Buprenorphine 15 MCG/HR Transdermal Patch Weekly Place 1 Patch topically on the skin once a week. (Patient not taking: Reported on 07/20/2023) 4 Patch 0 No current facility-administered medications for this visit. Past Medical History: Diagnosis Date Acute NM ([facility]) 2003 ASCVD (arteriosclerotic cardiovascular disease) 2003 Diabetes (HCC) 2001 insulin dep Hypertension S/P angioplasty with stent 2003 Stroke ([facility]) 2008 Past Surgical History: Procedure Laterality Date CABG, ARTERIAL, SINGLE N/A 06/18/2016 CORONARY ARTERY BYPASS GRAFT USING ARTERY 1 GRAFT performed by Wicho Mason MD at [place] [facility] INJECT DX/THER SUBSTANCE INTERLAMINAR LUMBAR/SACRAL W IMAGE GUIDE 10/20/2017 INJECTION SPINE LUMBAR OR SACRAL performed by Ruben Connelly, DO at OR [facility]OUS ORDER ([facility] ONLY) Left left knee replacement TOTAL KNEE REPLACEMENT EDU. Right Review of patient's allergies indicates: Allergen Reactions Actos [Pioglitazone Hydrochloride] Other (Please comment) palpitations Erythromycin Base Rash Metformin Metformin Hcl Other (Please comment) palpitations Prednisone syncope Family History Problem Relation Age of Onset Heart Disorder Mother 70 Heart Disorder Sister 70 Cancer Father Family Status Relation Status Mo Sis (Not Specified) Fa Alive Social History Socioeconomic History Marital status: Spouse name: Not on file Number of children: Not on file Years of education: Not on file Highest education level: Not on file Occupational History 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 Tobacco Use Smoking status: Former Current packs/day: 0.00 Average packs/day: 1 pack/day for 20.0 years (20.0 ttl pk-yrs) Types: Cigarettes Start date: 06/15/1966 Quit date: 06/15/1986 Years since quittin.1 Smokeless tobacco: Former Vaping Use Vaping Use: Never used Substance and Sexual Activity Alcohol use: No Drug use: No Sexual activity: Not on file Other Topics Concern Not on file Social History Narrative Not on file Social Determinants of Health Financial Resource Strain: Not on file Food Insecurity: Not on file Transportation Needs: Not on file Physical Activity: Not on file Stress: Not on file Social Connections: Not on file Intimate Partner Violence: Not on file Housing Stability: Not on file Review of Systems Constitutional: Negative for chills, fatigue and fever. HENT: Negative for congestion, sore throat and trouble swallowing. Eyes: Negative for photophobia and pain. Respiratory: Positive for shortness of breath. Negative for cough, chest tightness and wheezing. Cardiovascular: Negative for chest pain, palpitations and leg swelling. Gastrointestinal: Negative for abdominal distention, abdominal pain, nausea and vomiting. Genitourinary: Negative for dysuria and frequency. Musculoskeletal: Positive for arthralgias and back pain. Negative for neck stiffness. Skin: Negative for pallor. Neurological: Negative for dizziness, light-headedness and headaches. Psychiatric/Behavioral: Negative for sleep disturbance. The patient is not nervous/anxious. Objective BP 132/74 | Pulse 75 | Temp 36.6 C (97.9 F) (Tympanic) | Resp 18 | Wt 113.3 kg (249 lb 12.8 oz)| SpO2 97% | BMI 39.12 kg/m | BSA 2.31 m Physical Exam Constitutional: General: He is not in acute distress. Appearance: He is not ill-appearing. HENT: Head: Normocephalic and atraumatic. Right Ear: Tympanic membrane, ear canal and external ear normal. Left Ear: Tympanic membrane, ear canal and external ear normal. Nose: Nose normal. No congestion or rhinorrhea. Mouth/Throat: Mouth: Mucous membranes are moist. Pharynx: Oropharynx is clear. Eyes: General: No scleral icterus. Extraocular Movements: Extraocular movements intact. Conjunctiva/sclera: Conjunctivae normal. Pupils: Pupils are equal, round, and reactive to light. Neck: Vascular: No carotid bruit. Cardiovascular: Rate and Rhythm: Normal rate and regular rhythm. Pulses: Normal pulses. Heart sounds: Normal heart sounds. No murmur heard. No friction rub. No gallop. Pulmonary: Effort: Pulmonary effort is normal. No respiratory distress. Breath sounds: Normal breath sounds. No wheezing, rhonchi or rales. Chest: Chest wall: No tenderness. Abdominal: General: Bowel sounds are normal. There is no distension. Palpations: Abdomen is soft. There is no mass. Tenderness: There is no abdominal tenderness. There is no right CVA tenderness or left CVA tenderness. Musculoskeletal: General: No swelling or tenderness. Cervical back: Normal range of motion and neck supple. Right lower leg: No edema. Left lower leg: No edema. Comments: Limited range of motion lumbar spine with flexion/extension as at previous visit Skin: General: Skin is warm and dry. Coloration: Skin is not jaundiced. Findings: No rash. Neurological: General: No focal deficit present. Mental Status: He is oriented to person, place, and time. Cranial Nerves: No cranial nerve deficit. Sensory: No sensory deficit. Motor: No weakness. Psychiatric: Mood and Affect: Mood normal. Behavior: Behavior normal. Right foot:Edema: none Skin: normal Temp: normal Pulses: DP-2+ PT-2+ Callus: no significant callus formation Toes: no specific problems Nails: Most nails with thickened appearance Monofilament test: sensation intact in all areas. Left foot: Edema: none Skin: normal Temp: normal Pulses: DP-2+ PT-2+ Callus: no significant callus formation Toes: no specific problems Nails: Most nails with thickened appearance Monofilament test: sensation intact in all areas. Latest Reference Range & Units 07/15/23 13:13 Sodium 135 - 146 mmol/L 144 Potassium 3.5 - 5.1 mmol/L 4.4 Chloride 98 - 107 mmol/L 109 (H) CO2 22 - 32 mmol/L 23 BUN 6 - 20 mg/dL 28 (H) Creatinine 0.6 - 1.2 mg/dL 0.8 Estimated Glomerular Filtration Rate >=60 mL/min 88 Anion Gap 7 - 15 mmol/L 12 Glucose 70 - 120 mg/dL 103 Calcium 8.4 - 10.2 mg/dL 10.1 Protein 6.0 - 8.3 g/dL 6.1 Estimated Average Glucose <126 mg/dL 131 (H) Hemoglobin A1C 4.0 - 5.6 % 6.2 (H) Albumin 3.8 - 5.0 g/dL 4.6 AST 10 - 50 U/L 19 ALT 10 - 50 U/L 15 Alkaline Phosphatase 35 - 130 U/L 95 Bilirubin, Total <=1.2 mg/dL 0.8 (H): Data is abnormally high ASSESSMENT/PLAN: Dyspnea on exertion (Primary) - EKG; Future; Expected date: 07/20/2023 - XR CHEST 2 VIEWS Type 2 diabetes mellitus with diabetic peripheral angiopathy without gangrene, with long-term current use of insulin (HCC) - DIABETES FOOT EXAM Hyperlipidemia associated with type 2 diabetes mellitus (HCC) Hypertension associated with type 2 diabetes mellitus (HCC) Controlled substance agreement signed Chronic obstructive pulmonary disease, unspecified COPD type (HCC) Coronary artery disease involving [place] coronary artery of [place] heart without angina pectoris Ischemic cardiomyopathy Recurrent major depressive disorder, in remission (HCC) Spinal stenosis of lumbar region without neurogenic claudication Plan: Patient presents to office for routine follow-up. Has been noting some increased dyspnea on exertion. EKG does not seem to show any acute ischemic or arrhythmic changes compared to previous 2020 study.Does not seem overtly fluid overloaded. Does have history of CAD, ischemic cardiomyopathy. Last cardiology follow-up in 2021. Still need to rule out cardiac equivalent Ordered patient two-view chest x-ray to have done at [facility]. Will follow- up results. May consider dobutamine stress echo Continue current medications. Continue Trulicity 4.5 mg injected weekly, Novolin 70-3055 units twice daily injected. A1c well controlled at 6.2 Foot exam done today without major concerns. Eye exam up-to-date Will plan repeat labs in 6 months to reassess CMP, CBC, lipids, A1c Next follow-up pending results of chest x-ray Defers vaccines including pneumococcal, Tdap, zoster, flu at this time. Will revisit recommendations at later encounter Patient counseled that if his breathing were to get acutely worse, or if he were to start having shortness of breath at rest he needs to let the office know immediately. This could be an indication for ER evaluation. Overall there was not any acute cardiopulmonary findings on exam Follow Up: Return if symptoms worsen or fail to improve, for Follow up next routine with PCP as scheduled. | For: Follow up next routine with PCP as scheduled | Check-out note: Follow up pending xrayresults CXR this week Eventually will stay at [facility]. 6 months with any provider Joey Rose DO documented in this encounter Nursing Notes * Marisol Dolan CCMA - 07/20/2023 3:23 PM EDT The patient has been properly identified by confirmation of name and date of . Chief Complaint Patient presents with Follow Up Patient is here today for a 3 month return. Patient states his sugar has been running high Also states he hasn't been eating the greatest documented in this encounter Plan of Treatment Upcoming Encounters Date Type Department Care Team ([facility] st Contact Info) Description 08/03/2023 6:10 PM EDT Pharmacy Pharmacy [address] [phone] Pharmacist2, [facility] [address] [phone] Scheduled Orders Name Type Priority Associated Diagnoses Orde r Schedule EKG EKG Routine Dyspnea on exertion Expected: 07/20/2023 (Approximate), Expires: 08/19/2024 XR CHEST 2 VIEWS Medical Imaging Routine Dyspnea on exertion Ordered: 07/20/2023 Health Maintenance Due Date Last Done Comments Pneumococcal Vaccine: 65+ Years (1 of 2 - PCV) 1948 DTaP,Tdap,and Td Vaccines (1 - Tdap) 1961 Zoster Vaccines (1 of 2) 1992 COVID-19 Vaccine (1 - 2022- season) 2022 Influenza Vaccine (FLU shot) (#1) 2022 Albumin/Creatinine Ratio 12/15/2023 023, 03/24/2022, 12/09/2021, Additional history exists Depression Screening 12/22/2023 12/21/2022 Diabetic Eye Exam 12/29/2023 12/28/2022, , 05/26/2020, Additional history exists HbA1c 01/15/2024 07/15/2023, 03/02, 12/14/2022, Additional history [...] this encounter Medical Devices Implanted Type Area Information Consultant Device Identifier Shelf Expiration Date Model / Serial / Lot Sut Steel 6 [id number] - [id number] Implanted:Qty: 4 on 06/18/2016 by Wicho Mason MD at [place] [facility] N/A: Sternum JNJ : [employer] 03/31/2021 [id number] / / [id number] Graft Marker Coronary - [id number] Implanted:Qty: 1 on 06/18/2016 by Wicho Mason MD at [place] [facility] N/A: Aorta VM CARDIO VASCULAR 10/29/2017 [id number] / / [id number] documented as of this encounter Visit Diagnoses Diagnosis Dyspnea on exertion- Primary Other dyspnea and respiratory abnormality Type 2 diabetes mellitus with diabetic peripheral angiopathy without gangrene, with long-term current use of insulin (HCC) Hyperlipidemia associated with type 2 diabetes mellitus (HCC) Hypertension associated with type 2 diabetes mellitus (HCC) Controlled substance agreement signed Encounter for long-term (current) use of other medications Chronic obstructive pulmonary disease, unspecified COPD type (HCC) Coronary artery disease involving [place] coronary artery of [place] heart without angina pectoris Ischemic cardiomyopathy Other specified forms of chronic ischemic heart disease Recurrent major depressive disorder, in remission (HCC) Spinal stenosis of lumbar region without neurogenic claudication Spinal stenosis, lumbar region, without neurogenic claudication documented in this encounter Advance Directives Latest Code Status on File Code Status Date Activated Date Inactivated Comments Full Code 06/18/2016 1:14 PM 06/23/2016 4:44 PM This order reflects the patients wishes and were consensually agreed upon. Question Answer Comments Discussion of Advance Directives occurred with: Patient Does the patient have a Living Will? No Does the patient have Health Care Power of [employer] Business [employer]st? No Code Status History Code Status Date Activated Date Inactivated Comments Full Code 06/15/2016 6:13 PM 06/18/2016 7:28 AM This order reflects the patients wishes and were consensually agreed upon. Question Answer Comments Discussion of Advance Directives occurred with: Patient Does the patient have a Living Will? No Does the patient have Health Care Power of [employer] Business [employer]st? No Care Teams Customer Success Specialist Relationship Specialty Start Date End Date Joey Rose DO [address] [place] [phone] PCP - General Internal Medicine 12/03/20 documented as of this encounter
--- OUTSIDE RECORDS SUMMARY | 2023-11-02 14:17 | External Medical Summary | Summary of Care ---
Author Name Unknown Organization [facility] Address [address] [facility] [place] [address] Phone [phone] Care Team Providers Care Taxi Servicer Name Role Phone Joey Cody DO Primary Care Provid er Reason for Referral * Medication Prior Authorization - Pending Review Specialty Diagnoses / Procedures Referred By Ming ruiz Referred To Contact Diagnoses Chronic right-sided low back pain with right-sided sciatica Joey Cody DO [address] [place] [address] Referral ID Status Reason Start Date Expiration Date V isits Requested Visits Authorized [id number] Pending Review 999 999 Reason for Visit * Reason Comments eRx-Medication Refill Encounter Details Date Type Department Care Team ([facility] Contact Info) Description 08/17/2023 Refill Family Practice [facility] [address] [place] [address] Joey Cody DO [address] [place] [address] Chronic right-sided low back pain with right-sided sciatica Allergies Active Allergy Reactions Criticality Noted Date Comments Pioglitazone Hydrochloride Other (Please comment) 11/19/2009 palpitations Erythromycin Base Rash 11/19/2009 Metformin 09/24/2011 Metformin Hcl Other (Please comment) 11/19/2009 palpitations Prednisone 11/19/2009 syncope documented as of this encounter (statuses as of 08/21/2023) Medications Medication Sig Dispensed Refills Start Date [...] Tablet Sublingual (Nitrostat)Indicati ons:Coronary artery disease involving [place] coronary artery of [place] heart without angina pectoris Place 1 Tablet [...] goal LDL below 70,Coronary artery disease involving [place] coronary artery of [place] heart without angina pectoris Take 1 Tablet [...] Hour (toPROL XL)Indications:Gabriele nary artery disease involving [place] coronary artery of [place] heart without angina pectoris TAKE ONE TABLET [...] as of this encounter (statuses as of 08/21/2023) Active Problems Problem Noted Date Diagnosed Date [...] as of this encounter (statuses as of 08/21/2023) Resolved Problems Problem Noted Date Diagnosed Date [...] as of this encounter (statuses as of 08/21/2023) Immunizations Name Administration Dates Next Due Pneumococcal [...] JOEY CODY * Telephone Encounter - Wicho Hardin [facility] - 08/18/2023 11:27 AM EDTPending Prescriptions: Disp Refills HYDROcodone-Acetaminophen 10-325 MG Oral T*120 Ta*0 Sig: Take 1 Tablet by mouth every 6 hours as needed for Pain, Moderate. * Telephone Encounter - Wicho Hardin [facility] - 08/18/2023 11:26 AM EDT I have reviewed the patients controlled substance dispensing history in the Prescription Drug Monitoring Program in compliance with the [facility] regulations before prescribing a controlled [...] medication is due for refill: 08/03/23 Pharmacy: [facility] [address] Is this request for a controlled [...] approve if appropriate. Thank You, Wicho Diaz [facility] Clinical Pharmacist Centralized Clinical Pharmacy Services (CCPS) (formerly Telepharmacy) 08/18/2023, 11:26 AM documented in this encounter Plan of Treatment Upcoming Encounters Date Type Department Care Team ([facility] Contact Info) Description 08/31/2023 6:10 PM EDT Pharmacy Pharmacy [address] [place] [address] Pharmacist2, [address] [address] Health Maintenance Due Date Last Done Comments [...] this encounter Medical Devices Implanted Type Area Microsoft Bi Consultant Device Identifier Shelf Expiration Date Model / Serial / Lot Jaden Jack 6 M654g - [id number] Implanted:Qty: 4 on 06/18/2016 by Wicho Mason MD at [place] [facility] N/A: Talha RESENDIZ : [employer] 03/31/2021 [id number] / / [id number] Graft Marker Coronary - [id number] Implanted:Qty: 1 on 06/18/2016 by Wicho Mason MD at OR [facility] N/A: Aorta VM CARDIO VASCULAR 10/29/2017 [id number] / / [id number] documented as of this encounter Visit Diagnoses [...] the patient have Health Care Power of Case Sealer? No Code Status History Code Status Date Activated Date Inactivated Comments Full Code 06/15/2016 6:13 PM 06/18/2016 7:28 AM This order reflects the patients wishes and were consensually agreed upon. Question Answer Comments Discussion of Advance Directives occurred with: Patient Does the patient have a Living Will? No Does the patient have Health Care Power of Case Sealer? No Care Teams Taxi Servicer Relationship Specialty Start Date End Date Joey Cody DO [address] [place] [address] PCP - General Internal Medicine 12/03/20 documented as of this encounter
--- OUTSIDE RECORDS SUMMARY | 2023-11-02 14:17 | External Medical Summary | Summary of Care ---
Author Name Unknown Organization [facility] Address [address] [facility] [place] [address] Phone [phone] Care Team Providers Care Tankage Supervisor Name Role Phone Joey Rose DO Primary Care Provid er Reason for Visit * Reason Comments Appointment Encounter Details Date Type Department Care Team ([facility] Contact Info) Description 08/31/2023 6:10 PM EDT Pharmacy Pharmacy [address] [phone] Pharmacist2, [facility] [address] [address] Type 2 diabetes mellitus with diabetic peripheral [...] Tablet Sublingual (Nitrostat)Indicatio ns:Coronary artery disease involving [place] coronary artery of [place] heart without angina pectoris Place 1 Tablet [...] goal LDL below 70,Coronary artery disease involving [place] coronary artery of [place] heart without angina pectoris Take 1 Tablet [...] Hour (toPROL XL)Indications:Coron austyn artery disease involving [place] coronary artery of [place] heart without angina pectoris TAKE ONE TABLET BY MOUTH ONCE DAILY 90 Tablet 0 06/27/2023 Active tiZANidine HCl 4 MG Oral Tablet (Zanaflex)Indication s:Chronic right-sided low back pain with right-sided sciatica Take 1 Tablet by mouth every 8 hours as needed for Muscle spasms. 90 Tablet 1 08/01/2023 Active Buprenorphine 15 MCG/HR Transdermal Patch WeeklyIndications:Sp inal stenosis of lumbar region without neurogenic claudication,Chronic bilateral low back pain with bilateral sciatica Place 1 Patch topically on the skin once a week. 4 Patch 0 08/05/2023 Active HYDROcodone-Acetamin ophen 10-325 MG Oral TabletIndications:Ch [...] Active BD Insulin Syringe U/F 31G X 09/14" 1 ML (Insulin Syringe-Needle U-100) use twice daily with insulin DIRECTED 200 Each 3 08/31/2023 Active documented as of this encounter (statuses [...] as of this encounter Progress Notes * Grazyna Lee, social media marketing specialist - 08/31/2023 9:30 AM EDT Patient Phone Numbers Sent myG message to pt, to schedule [facility] appointment for DM management. [facility] sent -- yes Clinic will follow up again in 4 week(s). [Attempt # 3] Thank you, Grazyna Lee Film And Video Editor Centralized Clinical Pharmacy Services (CCPS) (Formerly Telepharmacy) 08/31/2023, 9:30 AM documented in this encounter Plan of Treatment Upcoming Encounters Date Type Department Care Team ([facility] Contact Info) Description 09/28/2023 6:10 PM EDT Pharmacy Pharmacy [address] [phone] Pharmacist2, [facility] [address] [address] Health Maintenance Due Date Last Done Comments [...] this encounter Medical Devices Implanted Type Area Undertaker Helper Device Identifier Shelf Expiration Date Model / Serial / Lot Sut Steel 6 M654g - [id number] Implanted:Qty: 4 on 06/18/2016 [place] [facility] [place]: Sternum JNJ : [employer] 03/31/2021 [id number] / / [id number] Graft Marker Coronary - [id number] Implanted:Qty: 1 on 06/18/2016 [place] Wicho Mason [place] [facility]A: Aorta VM CARDIO VASCULAR 10/29/2017 [id number] / / [id number] documented as of this encounter Visit Diagnoses Diagnosis Type 2 diabetes mellitus with diabetic peripheral angiopathy without gangrene, with long-term current use of insulin (HCC)- Primary documented in this encounter Advance Directives Latest Code Status on File Code Status Date Activated Date Inactivated Comments Full Code 06/18/2016 1:14 PM 06/23/2016 4:44 PM This order reflects the patients wishes and were consensually agreed upon. Question Answer Comments Discussion of Advance Directives occurred with: Patient Does the patient have a Living Will? No Does the patient have Health Care Power of Android Ios Developer? No Code Status History Code Status Date Activated Date Inactivated Comments Full Code 06/15/2016 6:13 PM 06/18/2016 7:28 AM This order reflects the patients wishes and were consensually agreed upon. Question Answer Comments Discussion of Advance Directives occurred with: Patient Does the patient have a Living Will? No Does the patient have Health Care Power of Android Ios Developer? No Care Teams Tankage Supervisor Relationship Specialty Start Date End Date Joey Rose DO [address] [place] [address] PCP - General Internal Medicine 12/03/20 documented as of this encounter
--- OUTSIDE RECORDS SUMMARY | 2023-11-02 14:17 | External Medical Summary | Summary of Care ---
Author Name Unknown Organization [facility] Address [address] [facility] [place] [address] Phone [phone] Care Team Providers Care Irrigator Gravity Flow Name Role Phone Joey Cody DO Primary Care Provid er Reason for Referral * Medication Prior Authorization - Pending Review Specialty Diagnoses / Procedures Referred By Ming ruiz Referred To Contact Diagnoses Spinal stenosis of lumbar region without neurogenic claudication Chronic bilateral low back pain with bilateral sciatica Joey Cody DO [address] [place] [address] Referral ID Status Reason Start Date Expiration Date V isits Requested Visits Authorized [id number] Pending Review 999 999 Reason for Visit * Reason Comments eRx-Medication Refill Encounter Details Date Type Department Care Team ([facility] st Contact Info) Description 08/03/2023 Refill Family Practice [facility] [address] [place] [address] Joey Cody DO [address] [place] [address] Spinal stenosis of lumbar region [...] Tablet Sublingual (Nitrostat)Indicati ons:Coronary artery disease involving [place] coronary artery of [place] heart without angina pectoris Place 1 Tablet [...] goal LDL below 70,Coronary artery disease involving [place] coronary artery of [place] heart without angina pectoris Take 1 Tablet [...] with long-term current use of insulin ([facility]) use up to 4 times a day [...] with long-term current use of insulin ([facility]) Use to check sugar 4 times daily [...] Hour (toPROL XL)Indications:Gabriele nary artery disease involving [place] coronary artery of [place] heart without angina pectoris TAKE ONE TABLET [...] Provider: JOEY CODY * Telephone Encounter - Senait Fish RP - 08/04/2023 9:23 AM EDTPending Prescriptions: Disp Refills Buprenorphine 15 MCG/HR Transdermal Patch *4 Patch0 Sig: Place 1 Patch topically on the skin once a week. * Telephone Encounter - Senait Fish RP - 08/04/2023 9:22 AM EDT I have reviewed the patients controlled substance dispensing history in the Prescription Drug Monitoring Program in compliance with the [facility] regulations before prescribing a [...] is due for refill: 07/31 Pharmacy: [facility] [address] Is this request for a controlled [...] Centralized Clinical Pharmacy Services (CCPS) (formerly Telepharmacy) [phone] 08/04/2023, 9:22 AM documented in this encounter Plan of Treatment Upcoming Encounters Date Type Department Care Team ([facility] st Contact Info) Description 08/31/2023 6:10 PM EDT Pharmacy Pharmacy [address] [phone] Pharmacist2, [facility] [address] [place] [address] Health Maintenance Due Date Last Done Comments [...] this encounter Medical Devices Implanted Type Area Cartridge Belt Puncher Device Identifier Shelf Expiration Date Model / Serial / Lot Jaden Jack 6 M654g - [id number] Implanted:Qty: 4 on 06/18/2016 by Wicho Mason [place] [facility]: Talha RESENDIZ : [employer] 03/31/2021 [id number] / / [id number] Graft Marker Coronary - [id number] Implanted:Qty: 1 on 06/18/2016 by Wicho Mason [place] [facility]A: Aorta VM CARDIO VASCULAR 10/29/2017 [id number] / / [id number] documented as of this encounter Visit Diagnoses [...] the patient have Health Care Power of Squadron Worker? No Code Status History Code Status Date Activated Date Inactivated Comments Full Code 06/15/2016 6:13 PM 06/18/2016 7:28 AM This order reflects the patients wishes and were consensually agreed upon. Question Answer Comments Discussion of Advance Directives occurred with: Patient Does the patient have a Living Will? No Does the patient have Health Care Power of Squadron Worker? No Care Teams Irrigator Gravity Flow Relationship Specialty Start Date End Date Joey Cody DO [address] [place] [phone] PCP - General Internal Medicine 12/03/20 documented as of this encounter
--- OUTSIDE RECORDS SUMMARY | 2023-11-02 14:17 | External Medical Summary | Summary of Care ---
Author Name Unknown Organization [facility] Address [address] [facility] [place] [address] Phone [phone] Care Team Providers Care Foxer Name Role Phone Joey Cody DO Primary Care Provid er Reason for Referral * Medication Prior Authorization - Pending Review Specialty Diagnoses / Procedures Referred By Ming ruiz Referred To Contact Diagnoses Chronic right-sided low back pain with right-sided sciatica Joey Cody DO [address] [place] [address] Referral ID Status Reason Start Date Expiration Date V isits Requested Visits Authorized [id number] Pending Review 999 999 Reason for Visit * Reason Comments eRx-Medication Refill Encounter Details Date Type Department Care Team ([facility] Contact Info) Description 08/17/2023 Refill Family Practice [facility] [address] [place] [address] Joey Cody DO [address] [place], [place] [phone] Chronic right-sided low back pain with right-sided sciatica Allergies Active Allergy Reactions Criticality Noted Date Comments Pioglitazone Hydrochloride Other (Please comment) 11/19/2009 palpitations Erythromycin Base Rash 11/19/2009 Metformin 09/24/2011 Metformin Hcl Other (Please comment) 11/19/2009 palpitations Prednisone 11/19/2009 syncope documented as of this encounter (statuses as of 08/22/2023) Medications Medication Sig Dispensed Refills Start Date [...] Tablet Sublingual (Nitrostat)Indicati ons:Coronary artery disease involving [place] coronary artery of [place] heart without angina pectoris Place 1 [...] goal LDL below 70,Coronary artery disease involving [place] coronary artery of [place] heart without angina pectoris Take 1 [...] Hour (toPROL XL)Indications:Gabriele nary artery disease involving [place] coronary artery of [place] heart without angina pectoris TAKE ONE [...] as of this encounter (statuses as of 08/22/2023) Active Problems Problem Noted Date Diagnosed Date [...] as of this encounter (statuses as of 08/22/2023) Resolved Problems Problem Noted Date Diagnosed Date [...] as of this encounter (statuses as of 08/22/2023) Immunizations Name Administration Dates Next Due Pneumococcal [...] medication. Thank you, Liudmila De La Cruz Bottoming Room Supervisor I Centralized Clinical Pharmacy Services (CCPS) (Formerly Telepharmacy) 08/22/2023,11:23 AM * Telephone Encounter - oJey Cody DO - 08/21/2023 10:09 PM EDT Signed Prescriptions: Disp Refills HYDROcodone-Acetaminophen 10-325 MG Oral T*120 Ta*0 Sig: Take 1 Tablet by mouth every 6 hours as needed for Pain, Moderate. Authorizing Provider: JOEY CODY * Telephone Encounter - Wicho Hardin [facility] - 08/18/2023 11:27 AM EDTPending Prescriptions: Disp Refills HYDROcodone-Acetaminophen 10-325 MG Oral T*120 Ta*0 Sig: Take 1 Tablet by mouth every 6 hours as needed for Pain, Moderate. * Telephone Encounter - Wicho Hardin [facility] - 08/18/2023 11:26 AM EDT I have reviewed the patients controlled substance dispensing history in the Prescription Drug Monitoring Program in compliance with the [facility] regulations before prescribing a controlled [...] is due for refill: 08/03/23 Pharmacy: [facility] [address] Is this request for a controlled [...] approve if appropriate. Thank You, Wicho Diaz [facility] Clinical Pharmacist Centralized Clinical Pharmacy Services (CCPS) (formerly Telepharmacy) 08/18/2023, 11:26 AM documented in this encounter Plan of Treatment Upcoming Encounters Date Type Department Care Team ([facility] Contact Info) Description 08/31/2023 6:10 PM EDT Pharmacy Pharmacy [address] [phone] Pharmacist2, [facility] [address] [address] Health Maintenance Due Date Last Done Comments [...] this encounter Medical Devices Implanted Type Area Cessation Systems Outreach Specialist Device Identifier Shelf Expiration Date Model / Serial / Lot Sut Steel 6 M654g - [id number] Implanted:Qty: 4 on 06/18/2016 [place] [facility] [place]: Sternum JNJ : [employer] 03/31/2021 M654G / / [id number] Graft Marker Coronary - [id number] Implanted:Qty: 1 on 06/18/2016 [place] [facility] [place]: Aorta VM CARDIO VASCULAR 10/29/2017 [id number] / / [id number] documented as of this encounter Visit Diagnoses [...] the patient have Health Care Power of Qc Scientist? No Code Status History Code Status Date Activated Date Inactivated Comments Full Code 06/15/2016 6:13 PM 06/18/2016 7:28 AM This order reflects the patients wishes and were consensually agreed upon. Question Answer Comments Discussion of Advance Directives occurred with: Patient Does the patient have a Living Will? No Does the patient have Health Care Power of Qc Scientist? No Care Teams Foxer Relationship Specialty Start Date End Date Joey Cody DO [address] [place] [id number] PCP - General Internal Medicine 12/03/20 documented as of this encounter
--- OUTSIDE RECORDS SUMMARY | 2023-11-02 14:17 | External Medical Summary | Summary of Care ---
Author Name Unknown Organization [facility] Address [address] [facility] [place] [address] Phone [phone] Care Team Providers Care Blending Kettle Tender Name Role Phone Joey Rose DO Primary Care Provid er Reason for Visit * Reason Comments Appointment Encounter Details Date Type Department Care Team ([facility] Contact Info) Description 08/03/2023 6:10 PM EDT Pharmacy Pharmacy [address] [phone] Pharmacist2, [facility] [address] [address] Type 2 diabetes mellitus with diabetic peripheral angiopathy without gangrene, with long-term current use of insulin ([facility])* Allergies Active Allergy Reactions Criticality Noted Date Comments Pioglitazone Hydrochloride Other (Please comment) 11/19/2009 palpitations Erythromycin Base Rash 11/19/2009 Metformin 09/24/2011 Metformin Hcl Other (Please comment) 11/19/2009 palpitations Prednisone 11/19/2009 syncope documented as of this encounter (statuses as of 08/03/2023) Medications Medication Sig Dispensed Refills Start Date [...] Tablet Sublingual (Nitrostat)Indicatio ns:Coronary artery disease involving [place] coronary artery [...] gangrene, with long-term current use of insulin ([facility]) Use to check sugar 4 times daily [...] Hour (toPROL XL)Indications:Coron [place] artery disease involving [place] coronary artery [...] a week. 4 Patch 0 07/05/2023 Active tiZANidine HCl 4 MG Oral Tablet (Zanaflex)Indication s:Chronic right-sided low back pain with right-sided sciatica Take 1 Tablet by mouth every 8 hours as needed for Muscle spasms. 90 Tablet 1 08/01/2023 Active documented as of this encounter (statuses as of 08/03/2023) Active Problems Problem Noted Date Diagnosed Date [...] as of this encounter (statuses as of 08/03/2023) Resolved Problems Problem Noted Date Diagnosed Date [...] as of this encounter (statuses as of 08/03/2023) Immunizations Name Administration Dates Next Due Pneumococcal [...] as of this encounter Progress Notes * Layla Trotter, waiter/waitress take out - 08/03/2023 9:12 AM EDT Patient Phone Numbers Voicemail is full, unable to leave message on patients answering machine to schedule [facility] appointment for diabetes management. [facility] message sent --no Clinic will follow up again in 4 week(s). [Attempt # 2] Thank you, Layla Trotter Taxi Driver Centralized Clinical Pharmacy Services (CCPS) (formerly Telepharmacy) [phone] 08/03/2023,9:12 AM documented in this encounter Plan of Treatment Upcoming Encounters Date Type Department Care Team ([facility] Contact Info) Description 08/31/2023 6:10 PM EDT Pharmacy Pharmacy [address] [phone] Pharmacist2, [facility] [address] [address] Health Maintenance Due Date Last Done Comments [...] this encounter Medical Devices Implanted Type Area Road Oiling Truck Driver Device Identifier Shelf Expiration Date Model / Serial / Lot Sut Steel 6 M654g - [id number] Implanted:Qty: 4 on 06/18/2016 by Wicho Mason MD at [place] [facility] [place] N/A: Sternum JNJ : [employer] 03/31/2021 M654G / / [id number] Graft Marker Coronary - [id number] Implanted:Qty: 1 on 06/18/2016 by Wicho Mason MD at [place] [facility] [place] N/A: Aorta VM CARDIO VASCULAR 10/29/2017 [id number] / / [id number] documented as of this encounter Visit Diagnoses [...] the patient have Health Care Power of Design Lead? No Code Status History Code Status Date Activated Date Inactivated Comments Full Code 06/15/2016 6:13 PM 06/18/2016 7:28 AM This order reflects the patients wishes and were consensually agreed upon. Question Answer Comments Discussion of Advance Directives occurred with: Patient Does the patient have a Living Will? No Does the patient have Health Care Power of Design Lead? No Care Teams Blending Kettle Tender Relationship Specialty Start Date End Date Joey Rose DO [address] [place] [address] PCP - General Internal Medicine 12/03/20 documented as of this encounter
--- OUTSIDE RECORDS SUMMARY | 2023-11-02 14:18 | External Medical Summary | Summary of Care ---
Author Name Unknown Organization [facility] Address [address] [facility] [place] [address] Phone [phone] Care Team Providers Care Employment Security Officer Name Role Phone Joey Rose DO Primary Care Provid er Reason for Visit * Reason Onset Date Comments Medication Pre-auth 07/04/2023 tiZANidine H Cl 4 MG Oral Tablet (Zanaflex) Encounter Details Date Type Department Care Team ([facility] st Contact Info) Description 07/04/[address] [phone] Joey Rose DO [address] [place] [phone] Medication Pre-auth (tiZANidine HCl 4 MG O... Allergies Active Allergy Reactions Criticality Noted Date Comments Pioglitazone Hydrochloride Other (Please comment) 11/19/2009 palpitations Erythromycin Base Rash 11/19/2009 Metformin 09/24/2011 Metformin Hcl Other (Please comment) 11/19/2009 palpitations Prednisone 11/19/2009 syncope documented as of this encounter (statuses as of 07/06/2023) Medications Medication Sig Dispensed Refills Start Date End Date Status aspirin 81 MG chewable tablet Take 1 Tablet by mouth in the morning and 1 Tablet before bedtime. With food.. 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 May repeat 3 times. If chest pain continues, call 911. 25 Tablet 3 05/17/2022 Active Insulin Syringe-Needle U-100 31G X 5/16" 1 ML (TRUEplus Insulin Syringe) Use as directed to administer insulin 200 Each 3 10/11/2022 Active Tadalafil 20 MG Oral Tablet (Cialis)Indications:O ther male erectile dysfunction Take 1 Tablet by mouth daily as needed for Erectile Dysfunction. 10 Tablet 3 12/21/2022 Active Lisinopril 5 MG Oral Tablet (Prinivil)Indications :HTN, goal below 140/90,Dyslipidemia, goal LDL below 70,Coronary artery disease involving red lake coronary artery of [place] lake heart without angina pectoris Take 1 Tablet by mouth in the morning. 90 Tablet 3 12/24/2022 Active amLODIPine Besylate 5 MG Oral Tablet (Norvasc)Indications: HTN, goal below 140/90 Take 1 Tablet by mouth in the morning. 90 Tablet 1 01/13/2023 Active Sertraline HCl 100 MG Oral Tablet (Zoloft)Indications:R ecurrent major depressive disorder, in remission (HCC) TAKE 1 TABLET BY MOUTH ONCE DAILY IN THE MORNING Strength: 100 mg 90 Tablet 1 01/13/2023 Active Atorvastatin Calcium 80 MG Oral Tablet (Lipitor)Indications: Dyslipidemia TAKE ONE TABLET BY MOUTH ONCE DAILY 90 Tablet 3 01/19/2023 Active Furosemide 40 MG Oral Tablet (Lasix)Indications:Lo calized edema TAKE 1 TABLET BY MOUTH ONCE [...] Active tiZANidine HCl 4 MG Oral Tablet (Zanaflex)Indications :Chronic right-sided low back pain with right-sided sciatica Take 1 Tablet by mouth every 8 hours as needed for Muscle spasms. 90 Tablet 1 04/05/2023 Active Blood Glucose Test Strips 333 In Vitro StripIndications:Type 2 diabetes mellitus with diabetic peripheral angiopathy [...] Oral Tablet Extended Release 24 Hour (toPROL XL)Indications:Davalos ry artery disease involving red lake coronary artery of red lake heart without angina pectoris TAKE ONE TABLET BY MOUTH ONCE DAILY 90 Tablet 0 06/27/2023 Active documented as of this encounter (statuses as of 07/06/2023) Active Problems Problem Noted Date Diagnosed Date [...] as of this encounter (statuses as of 07/06/2023) Resolved Problems Problem Noted Date Diagnosed Date [...] as of this encounter (statuses as of 07/06/2023) Immunizations Name Administration Dates Next Due Pneumococcal [...] encounter Miscellaneous Notes * Telephone Encounter - Keerthi Bob, [facility] - 07/06/2023 10:07 AM EST Please submit PA. Include the following documentation: 03/24/2021 OV Please copy and paste the following information into PA form: Previous prior auth approval Chronic back pain Lumbar stenosis Patient stable on this medication What other drugs is there medical record documentation of therapeutic failure on, intolerance to, or contraindication to for this condition? ibuprofen Román as urgent: No Diagnosis/ICD-10 Code(s): M54.41, G89.29 If instantaneous decision is not received after submitting prior auth, please continue to follow upon this and route back to the [facility] if no decision is made by the insurance by 07/08/23, after clarifying with the pharmacy that the claim is still not processing. If PA is denied, please also route back to [facility]. Thanks, Keerthi Bob, [facility] Clinical Pharmacist Central[facility] Clinical Pharmacy Services ([facility]PS) (Formerly Telepharmacy) [phone] * Telephone Encounter - Akira Baer PHARM Tech - 07/04/2023 11:54 AM EST Pharmacy calling to inform doctor that the patient's insurance will not pay for this medication without a completed prior authorization. Did confirm this information with the pharmacy. Pt's current insurance information is as follows: Patient name: Samuel Roman ID number: [id number] BIN number: [id number] PCN number: [id number] Group number: [id number] Subscriber name: Samuel Roman Primary or Secondary Insurance:Secondary Medication: tiZANidine HCl 4 MG Oral Tablet (Zanaflex) Reason for Request: requires diagnosis code and PA Pharmacy and phone number: [facility] [address] [phone] Rx plan and phone number: PACE Is this a new medication for the patient? No. How did the patient obtain the medication on the lastfill? It was covered last time on this same insurance. What alternative medications does the pharmacy have in stock?: n/a Thank you, Akira Baer Hotel Night Auditor I [facility] ([facility])(formerly Telepharmacy) 07/04/2023,11:55 AM documented in this encounter Plan of Treatment Upcoming Encounters Date Type Department Care Team (Late st Contact Info) Description 07/13/2023 11:00 AM EDT Laboratory Laboratory [facility] [place], [address] [phone] [place], [facility] [address] [place] [address] 07/20/2023 2:40 PM EDT Office Visit Pharmacy [facility] [address] [place] [phone] Pharmacist2, [facility] [address] [place] [address] 07/20/2023 3:20 PM EDT Office Visit Family Practice [facility] [address] [place] [address] Joey Rose DO [address] [place] [address] Health Maintenance Due Date Last Done Comments Pneumococcal Vaccine: 65+ Years (1 of 2 - PCV) 1948 DTaP,Tdap,and Td Vaccines (1 - Tdap) 1961 Zoster Vaccines (1 of 2) 1992 COVID-19 Vaccine (1 - 2022- season) 2022 Influenza Vaccine (FLU shot) (#1) 2022 Diabetic Foot Exam 06/21/2023 06/21/2022, 0 06/17/2021, 05/26/2020, Additional history exists HbA1c 09/15/2023 03/17/2023, 11/30, 06/14/2022, Additional history exists Albumin/Creatinine Ratio 12/15/20232 023, 03/24/2022, 12/09/2021, Additional history exists Depression Screening 12/22/2023 12/21/2022 Diabetic Eye Exam 12/29/2023 12/28/2022, , 05/26/2020, Additional history exists GFR 03/17/2024 03/17/2023, 11/30, 06/14/2022, Additional history exists O2 ASSESSMENT COMPLETED IN PAST YEAR FOR COPD 04/06/2024 04/06/2023 Alpha-1 Antitrypsin Completed 12/14/2022 GARDASIL-HPV IMMUNIZATION SERIES Aged Out No longer eligible based on patient's age to complete this topic Hepatitis B Aged Out No longer eligi ble based on patient's age to complete this topic MENINGOCOCCAL (MENACTRA/MENVEO) Aged Out No longer eligible based on patient's age to complete this topic documented as of this encounter Medical Devices Implanted Type Area Box Inspector Device Identifier Shelf Expiration Date Model / Serial / Lot Sut Steel 6 [id number] - [id number] Implanted:Qty: 4 on 06/18/2016 by Wicho Mason MD at [place] [facility] [place] N/A: Sternum JNJ : [employer] 03/31/2021 [id number] / / [id number] Graft Marker Coronary - [id number] Implanted:Qty: 1 on 06/18/2016 by Wicho Mason MD at [place] [facility] [place] N/A: Aorta VM CARDIO VASCULAR 10/29/2017 [id number] / / [id number] documented as of this encounter Advance Directives [...] the patient have Health Care Power of Farm Consultant? No Code Status History Code Status Date Activated Date Inactivated Comments Full Code 06/15/2016 6:13 PM 06/18/2016 7:28 AM This order reflects the patients wishes and were consensually agreed upon. Question Answer Comments Discussion of Advance Directives occurred with: Patient Does the patient have a Living Will? No Does the patient have Health Care Power of Farm Consultant? No Care Teams Employment Security Officer Relationship Specialty Start Date End Date Joey Rose DO [address] [place] [address] PCP - General Internal Medicine 12/03/20 documented as of this encounter
--- OUTSIDE RECORDS SUMMARY | 2023-11-02 14:18 | External Medical Summary ---
Author Name Unknown Address Unknown Organization K01:[facility] [place] [address] [facility] [place] [address] Laboratory Report Ordering Provider Test Date Status GLO MENDIOLA 07/15/2023 13:13:35 Final Observation Date Value Abnormality Reference (Units ) Status BUN 07/15/2023 13:13:35 28 Above high normal 6-20 (mg/dL) Final Creatinine 07/15/2023 13:13:35 0.8 0.6-1.2 (mg/dL) Final Glomerular filtration rate/1.73 sq M.predicted [Volume Rate/Area] in Serum, Plasma or Blood by Creatinine-based formula (CKD-EPI) 07/15/2023 13:13:35 88 >=60 (mL/min) Final eGFR is calculated based on the CKD-EPI 2020 equation SODIUM 07/15/2023 13:13:35 144 135-146 (m mol/L) Final Potassium 07/15/2023 13:13:35 4.4 3.5-5.1 (m mol/L) Final Cl 07/15/2023 13:13:35 109 Above high normal 98 -107 (mmol/L) Final CO2 07/15/2023 13:13:35 23 22-32 (mmo l/L) Final Anion gap 07/15/2023 13:13:35 12 7-15 (mmol /L) Final Glucose 07/15/2023 13:13:35 103 70-120 (mg /dL) Final Albumin 07/15/2023 13:13:35 4.6 3.8-5.0 (g /dL) Final AST (Aspartate aminotransferase) 07/15/2023 13:13:35 19 10-50 (U/L) Fin al Alk Phos 07/15/2023 13:13:35 95 35-130 (U/ L) Final Bilirubin, Total 07/15/2023 13:13:35 0.8 <=1 .2 (mg/dL) Final Calcium 07/15/2023 13:13:35 10.1 8.4-10.2 ( mg/dL) Final Protein 07/15/2023 13:13:35 6.1 6.0-8.3 (g /dL) Final ALT (Alanine aminotransferase) 07/15/2023 13:13:35 15 10-50 (U/L) Giacomo rosenberg Performing Location [facility] [place] [facility] [address] [facility] [address]
--- OUTSIDE RECORDS SUMMARY | 2023-11-02 14:18 | External Medical Summary | Summary of Care ---
Author Name Unknown Organization [facility] Address [address] [facility] [place] [address] Phone [phone] Care Team Providers Care Actuary Name Role Phone Joey Rose DO Primary Care Provid er Reason for Visit * Reason Comments Dosage Adjustment In Person (Anticoag Cl inic) Diabetes Follow-Up Encounter Details Date Type Department Care Team ([facility] st Contact Info) Description 06/16/2023 9:20 AM [facility] Pharm[facility] Pharmacy [address] [phone] Pharmacist2, [facility] [address] [address] Type 2 diabetes mellitus with diabetic peripheral angiopathy without gangrene, with long-term current use of insulin ([facility])* Allergies Active Allergy Reactions Criticality Noted Date Comments Pioglitazone Hydrochloride Other (Please comment) 11/19/2009 palpitations Erythromycin Base Rash 11/19/2009 Metformin 09/24/2011 Metformin Hcl Other (Please comment) 11/19/2009 palpitations Prednisone 11/19/2009 syncope documented as of this encounter (statuses as of 06/16/2023) Medications Medication Sig Dispensed Refills Start Date [...] Tablet Sublingual (Nitrostat)Indicati ons:Coronary artery disease involving tribal coronary artery of tribal heart without angina pectoris Place 1 Tablet under the tongue as needed for Pain, Chest. May repeat 3 times. If chest pain continues, call 911. 25 Tablet 3 05/17/2022 Active Insulin Syringe-Needle U-100 31G X 5/16" 1 ML (TRUEplus Insulin Syringe) Use as directed to administer insulin 200 Each 3 10/11/2022 Active Tadalafil 20 MG Oral Tablet (Cialis)Indications :Other male erectile dysfunction Take 1 Tablet by mouth daily as needed for Erectile Dysfunction. 10 Tablet 3 12/21/2022 Active Metoprolol Succinate ER 50 MG Oral Tablet Extended Release 24 Hour (toPROL XL)Indications:Gabriele nary artery disease involving tribal coronary artery of tribal heart without angina pectoris Take 1 Tablet by mouth in the morning. 90 Tablet 1 12/24/2022 Active Lisinopril 5 MG Oral Tablet (Prinivil)Indicatio ns:HTN, goal below 140/90,Dyslipidemia , goal LDL below 70,Coronary artery disease involving tribal coronary artery of tribal heart without angina pectoris Take 1 Tablet [...] THE MORNING 90 Tablet 1 01/20/2023 Active OneBarbara Delica Lancets 33GIndications:Type 2 diabetes mellitus with [...] AND DINNER. 60 mL 3 04/20/2023 Active HYDROcodone-Acetami nophen 10-325 MG Oral TabletIndications:C hronic right-sided low back pain with right-sided sciatica Take 1 Tablet by mouth every 6 hours as needed for Pain, Moderate. 120 Tablet 0 05/09/2023 Active Buprenorphine 15 MCG/HR Transdermal Patch WeeklyIndications:S jose enrique stenosis of lumbar region without neurogenic claudication,Chroni c bilateral low back pain with bilateral sciatica Place 1 Patch topically on the skin once a week. 4 Patch 0 06/06/2023 Active Trulicity 4.5 MG/0.5ML Subcutaneous Solution Pen-injector (Dulaglutide) Inject 4.5 mg under the skin once a week. 6 mL 3 06/16/2023 Active Trulicity 3 MG/0.5ML Subcutaneous Solution Pen-injector (Dulaglutide) Inject 3 mg under the skin once a week. 6 mL 3 04/20/2023 4 Discontinu ed(Medicat ion/Dose Changed) documented as of this encounter (statuses as of 06/16/2023) Active Problems Problem Noted Date Diagnosed Date [...] as of this encounter (statuses as of 06/16/2023) Resolved Problems Problem Noted Date Diagnosed Date [...] as of this encounter (statuses as of 06/16/2023) Immunizations Name Administration Dates Next Due Pneumococcal Polysaccharide PPV23 (Pneumovax) 12/22/2010(Deferred: Patient Refused) Seasonal Influenza, Split, I IV3, With Preserve, Inj 03/16/2010(Deferred: Patient Refused) documented as of this encounter Social History Tobacco Use Types Packs/Day Years Used Date Smoking Tobacco: Former Cigarettes 1 20 Q uit: 06/15/1986 Smokeless Tobacco: Former Alcohol Use Standard [...] as of this encounter Progress Notes * Floridalma Dennis, [facility] - 06/16/2023 9:25 AM EST Medication Therapy [facility] - Diabetes Management Progress Note Samuel Roman, identified by name and date of , is a 83 year old male being seen for diabetes management/education. Patient presents for return diabetic visit. DIABETES: Current diabetic medications: INCREASE: Trulicity 3 mg once weekly REDUCE: Novolin 70/30 55 units BID Allergy to metformin Atorvastatin 80 mg QD Lisinopril 5 mg QD Medication Injection Site: Abdomen and Thigh Lifestyle: Diet: unchanged Glucose Review/SMBG: Readings obtained from patient documented BG logbook Pre am Post am Pre Lunch Post Lunch Pre pm Post pm HS 86 194 103 155 130 127 127 158 106 111 150 123 105 126 182 137 79 176 146 181 156 205 99 Pre am Post am Pre Lunch Post Lunch Pre pm Post pm HS Average 136 #DIV/0! 161 #DIV/0! 103 #DIV/0! 141 Hi 205 0 194 0 103 0 155 Lo 79 0 127 0 103 0 127 Range 126 0 67 0 0 0 28 Hypoglycemia: Does your blood sugar go below 70 mg/dL? No Hyperglycemia symptoms present: none Recent Labs Units 03/17/23 1032 12/14/22 1008 06/14/22 1014 HEMOGLOBIN A1C - [facility] % 6.8* 6.7* 8.6* Recent Labs Units 03/17/23 1032 12/14/22 1008 06/14/22 1014 ESTIMATED GLOMERULAR FILTRATION RATE - [facility] mL/min 86 90 87 CREATININE - [facility] mg/dL 0.9 0.8 0.9 HYPERTENSION: Patient on ACEi/ARB: yes BP Readings from Last 3 Encounters: 04/06/23 118/72 03/22/23 142/80 02/11/23 110/72 Blood pressure at goal: yes HYPERLIPIDEMIA: Patient is taking moderate or high intensity statin: yes HEALTH MAINTENANCE REVIEW: Health Maintenance Due Topic Date Due COVID-19 Vaccine (1) Never done Pneumococcal Vaccine: 65+ Years (1 - PCV) Never done DTaP,Tdap,and Td Vaccines (1 - Tdap) Never done Zoster Vaccines (1 of 2) Never done Hepatitis B (1 of 3 - Risk 3-dose series) Never done Influenza Vaccine (FLU shot) (1) Never done Diabetic Foot Exam 06/21/2023 ASSESSMENT & PLAN: ICD-10-CM 1. Type 2 diabetes mellitus with diabetic peripheral angiopathy without gangrene, with long-term current use of insulin (HCC) E11.51 Z79.4 BG Readings - Blood sugars controlled. SMBG values at goal, denies any hypoglycemia since med changes. Reports that CGM was not affordable, agreeable to continue to SMBG with meter. Will obtain updated A1C before next appt. Medications - Reviewed current regimen, patient is adherent to regimen. Patient tolerating Trulicity dose increase well. Will further maximize dose to 4.5 mg weekly. Patient continues to administer novolin 70/30 at set times, regardless of meals. Encouraged pt to administer before meals, patient will reduce dose to to 52 units BID due to Trulicity dose increase. Discussed benefit of Jardiance with patient given HF. Patient declines at this time due to pill burden, notes he may reconsider with next appt. Diet, Exercise, Lifestyle - Patient reports minimal activity, notes that leg pain limits him . Discussed with patient finding ways to be active by performing resistance exercises.. Patient is agreeable to SMBG 2-3 time(s) daily. Patient aware to contact clinic if any hypoglycemia before next visit. MEDICATION CHANGES: yes, see below; preferred pharmacy: [place] [facility] Diabetic Medications: INCREASE: Trulicity 4.5 mg once weekly REDUCE: Novolin 70/30 52 units BID Allergy to metformin Atorvastatin 80 mg QD Lisinopril 5 mg QD HEALTH MAINTENANCE INTERVENTIONS: Labs: Up to Date Immunizations: Due for PNA, Flu, and Hep b Foot Exam: Up to Date Eye Exam: Up to Date Annual Wellness Visit: N/A FOLLOW UP: Return to clinic in 6 weeks (match PCP) 07/20/2023 Floridalma Dennis RPh Clinical Pharmacist - Computer Analyst Medication Therapy Management Clinic 06/16/2023, 9:25 AM documented in this encounter Plan of Treatment Upcoming Encounters Date Type Department Care Team (Late st Contact Info) Description 07/13/2023 11:00 AM EDT Laboratory [facility], [address] [address] [place], Lab [address] [address] 07/20/2023 2:40 [place] [address] Pharmacist2, [facility] [address] [address] 07/20/2023 3:20 PM EDT Office Visit Family [address] [address] Joey Rose, [address] [address] Health Maintenance Due Date Last Done Comments COVID-19 Vaccine (#1) 1940 Pneumococcal Vaccine: 65+ Years (1 - PCV) 1948 DTaP,Tdap,and Td Vaccines (1 - Tdap) 1961 Zoster Vaccines (1 of 2) 1992 Hepatitis B (1 of 3 - Risk 3-dose series) 2002 Influenza Vaccine (FLU shot) (#1) 2022 Diabetic Foot Exam 06/21/2023 06/21/2022, 0 06/17/2021, 05/26/2020, Additional history exists HbA1c 09/15/2023 03/17/2023, 11/30, 06/14/2022, Additional history exists Albumin/Creatinine Ratio 12/15/2023 023, 03/24/2022, 12/09/2021, Additional [...] this encounter Medical Devices Implanted Type Area It Risk Analyst Device Identifier Shelf Expiration Date Model / Serial / Lot Graft Marker Coronary - [id number] Implanted:Qty: 1 on 06/18/2016 by Wicho Mason MD at [place] [facility] [place]/A: Aorta VM CARDIO VASCULAR 10/29/2017 [id number] / / [id number] documented as of this encounter Visit Diagnoses [...] the patient have Health Care Power of Driller Machine? No Code Status History Code Status Date Activated Date Inactivated Comments Full Code 06/15/2016 6:13 PM 06/18/2016 7:28 AM This order reflects the patients wishes and were consensually agreed upon. Question Answer Comments Discussion of Advance Directives occurred with: Patient Does the patient have a Living Will? No Does the patient have Health Care Power of Driller Machine? No Care Teams Actuary Relationship Specialty Start Date End Date Joey Rose DO [address] [place] [phone] PCP - General Internal Medicine 12/03/20 documented as of this encounter
--- OUTSIDE RECORDS SUMMARY | 2023-11-02 14:18 | External Medical Summary | Summary of Care ---
Author Name Unknown Organization [facility] Address [address] [facility] [place] [address] Phone [phone] Care Team Providers Care Licensed Certified Orthotist Name Role Phone Joey Rose DO Primary Care Provid er Reason for Visit * Reason Onset Date Comments Medication Pre-auth 07/04/2023 tiZANidine H Cl 4 MG Oral Tablet (Zanaflex) Encounter Details Date Type Department Care Team ([facility] st Contact Info) Description 07/04/[address] [address] Joey Rose DO [address] [place] [address] Medication Pre-auth (tiZANidine HCl 4 MG [...] Tablet Sublingual (Nitrostat)Indication s: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 * Telephone Encounter - Jeanmarie Oneal CPhT - 07/06/2023 11:37 AM EST PACE contacted at phone: [phone], They will be faxing over PA forms to [phone] Please fill out and fax back when possible Thank you, Dominick Oneal ([facility]) Saw Setter III [facility] ([facility]) (formerly Telepharmacy) 07/06/2023, 11:37 AM * Telephone Encounter - Keerthi Bob [facility] - 07/06/2023 10:07 AM EST Please [...] upon this and route back to the [facility] pool if no decision is made by the insurance by 07/08/23, after clarifying with the pharmacy that the claim is still not processing. If PA is denied, please also route back to [facility] pool. Thanks, Keerthi Bob [facility] Clinical Pharmacist [facility] ([facility]) (Formerly Telepharmacy) [phone] * Telephone Encounter - Akira Baer director it project - 07/04/2023 11:54 AM EST Pharmacy calling to inform doctor that the patient's insurance will not pay for this medication without a completed prior authorization. Did confirm this information with the pharmacy. Pt's current insurance information is as follows: Patient name: Samuel Roman ID number: [id number] BIN number: [id number] PCN number: [id number] Group number: [id number] Subscriber name: Samuel Roman Primary or Secondary Insurance:Secondary Medication: tiZANidine HCl 4 MG Oral Tablet (Zanaflex) Reason for Request: requires diagnosis code and PA Pharmacy and phone number: [facility] [address] [phone] Rx plan and phone number: PACE Is this a new medication for the patient? No. How did the patient obtain the medication on the lastfill? It was covered last time on this same insurance. What alternative medications does the pharmacy have in stock?: n/a Thank you, Akira Baer Activities Volunteer I [facility] ([facility])(formerly Telepharmacy) 07/04/2023,11:55 AM documented in this encounter Plan of Treatment Upcoming Encounters Date Type Department Care Team ([facility] Contact Info) Description 07/13/2023 11:00 AM EDT Laboratory Laboratory Patient Service [place], [address] [address] [address] 07/20/2023 2:40 PM EDT Office Visit Pharmacy [address] [address] Pharmacist2, [facility] [address] [address] 07/20/2023 3:20 PM EDT Office Visit Family Practice [address] [phone] Joey Rose, [address] [place] [address] Health Maintenance Due Date Last Done [...] this encounter Medical Devices Implanted Type Area Casket Inspector Device Identifier Shelf Expiration Date Model / Serial / Lot Sut Steel 6 M654g - [id number] Implanted:Qty: 4 on 06/18/2016 [place] [facility] [place] Sternum JNJ : [employer] 03/31/2021 [id number] / / [id number] Graft Marker Coronary - [id number] Implanted:Qty: 1 on 06/18/2016 by Wicho Mason [place] [facility] [place]A: Aorta VM CARDIO VASCULAR 10/29/2017 [id number] / / [id number] documented as of this encounter Advance Directives [...] the patient have Health Care Power of Vice President Of Consulting Services? No Code Status History Code Status Date Activated Date Inactivated Comments Full Code 06/15/2016 6:13 PM 06/18/2016 7:28 AM This order reflects the patients wishes and were consensually agreed upon. Question Answer Comments Discussion of Advance Directives occurred with: Patient Does the patient have a Living Will? No Does the patient have Health Care Power of Vice President Of Consulting Services? No Care Teams Licensed Certified Orthotist Relationship Specialty Start Date End Date Joey Rose DO [address] [place] [address] PCP - General Internal Medicine 12/03/20 documented as of this encounter
--- OUTSIDE RECORDS SUMMARY | 2023-11-02 14:18 | External Medical Summary | Summary of Care ---
Author Name Unknown Organization [facility] Address [address] [facility] [place] [address] Phone [phone] Care Team Providers Care Motion Picture Commentator Name Role Phone Joey Rose DO Primary Care Provid er Reason for Visit * Reason Onset Date Comments Health Maintenance 06/28/2023 Encounter Details Date Type Department Care Team ([facility] st Contact Info) Description 06/28/2023 Telephone Family Practice [address] [phone] Joey Rose DO [address] [place] [address] Health Maintenance Allergies Active Allergy Reactions Criticality Noted Date Comments Pioglitazone Hydrochloride Other (Please comment) 11/19/2009 palpitations Erythromycin Base Rash 11/19/2009 Metformin 09/24/2011 Metformin Hcl Other (Please comment) 11/19/2009 palpitations Prednisone 11/19/2009 syncope documented as of this encounter (statuses as of 06/28/2023) Medications Medication Sig Dispensed Refills Start Date [...] Tablet Sublingual (Nitrostat)Indicatio ns:Coronary artery disease involving [place] coronary artery of [place] heart without angina pectoris Place 1 Tablet [...] LDL below 70,Coronary artery disease involving [place] coronary artery of [place] heart without angina pectoris Take 1 Tablet [...] AND DINNER. 60 mL 3 04/20/2023 Active HYDROcodone-Acetamin ophen 10-325 MG Oral TabletIndications:Ch ronic right-sided low back pain with right-sided sciatica Take 1 Tablet by mouth every 6 hours as needed for Pain, Moderate. 120 Tablet 0 05/09/2023 Active Buprenorphine 15 MCG/HR Transdermal Patch WeeklyIndications:Sp [...] Hour (toPROL XL)Indications:Coron austyn artery disease involving [place] coronary artery of [place] heart without angina pectoris TAKE ONE TABLET BY MOUTH ONCE DAILY 90 Tablet 0 06/27/2023 Active documented as of this encounter (statuses as of 06/28/2023) Active Problems Problem Noted Date Diagnosed Date [...] as of this encounter (statuses as of 06/28/2023) Resolved Problems Problem Noted Date Diagnosed Date [...] as of this encounter (statuses as of 06/28/2023) Immunizations Name Administration Dates Next Due Pneumococcal [...] encounter Miscellaneous Notes * Telephone Encounter - Sophie Cole LPN - 06/28/2023 11:12 AM EST Care Gaps Comprehensive Care Outreach Last Office/Telemedicine Visit: 04/06/2023 (in office), Visit date not found (telemedicine) Next Office Visit: 07/20/2023 Hemoglobin AIC Results: Lab Results Component Value Date/Time HEMOGLOBIN A1C - [facility] 6.8 (H) 03/17/2023 10:32 AM HEMOGLOBIN A1C - [facility] 6.7 (H) 12/14/2022 10:08 AM HEMOGLOBIN A1C - [facility] 8.6 (H) 06/14/2022 10:14 AM HEMOGLOBIN A1C - [facility] 8.3 (H) 05/26/2020 10:38 AM HEMOGLOBIN A1C - [facility] 7.6 (H) 03/09/2019 01:42 PM HEMOGLOBIN A1C - [facility] 7.7 (H) 10/02/2018 01:34 PM BP Readings from Last 1 Encounters: 04/06/23 118/72 Reviewed Health Maintenance below: Health Maintenance Topic Date Due Pneumococcal Vaccine: 65+ Years (1 of 2 - PCV) Never done DTaP,Tdap,and Td Vaccines (1 - Tdap) Never done Zoster Vaccines (1 of 2) Never done Influenza Vaccine (FLU shot) (1) Never done COVID-19 Vaccine (1 - 2022- season) Never done Diabetic Foot Exam 06/21/2023 Care Gap Outreach Action Taken: Scancell message sent AWV due. documented in this encounter Plan of Treatment Upcoming Encounters Date Type Department Care Team ([facility] Contact Info) Description 07/13/2023 11:00 AM EDT Laboratory Laboratory Patient Service [address] [phone] [address] 07/20/2023 2:40 PM EDT Office Visit Pharmacy [address] [phone] Pharmacist2, [facility] [address] [address] 07/20/2023 3:20 PM EDT Office Visit [facility] [address] [place] [address] Joey Rose DO [address] [place] [address] Health Maintenance Due Date Last Done Comments [...] this encounter Medical Devices Implanted Type Area Community Health Nurse Staff Device Identifier Shelf Expiration Date Model / Serial / Lot Jaden Jack 6 M654g - [id number] Implanted:Qty: 4 on 06/18/2016 [place] [facility] [place] Sternum JNJ : [employer] 03/31/2021 [id number] / / [id number] Graft Marker Coronary - [id number] Implanted:Qty: 1 on 06/18/2016 [place]ich[place] [facility] [place]A: Aorta VM CARDIO VASCULAR 10/29/2017 [id number] / / [id number] documented as of this encounter Advance Directives [...] the patient have Health Care Power of Major Assembly Inspector? No Code Status History Code Status Date Activated Date Inactivated Comments Full Code 06/15/2016 6:13 PM 06/18/2016 7:28 AM This order reflects the patients wishes and were consensually agreed upon. Question Answer Comments Discussion of Advance Directives occurred with: Patient Does the patient have a Living Will? No Does the patient have Health Care Power of Major Assembly Inspector? No Care Teams Motion Picture Commentator Relationship Specialty Start Date End Date Joey Rose DO [address] [place] [address] PCP - General Internal Medicine 12/03/20 documented as of this encounter
--- OUTSIDE RECORDS SUMMARY | 2023-11-02 14:18 | External Medical Summary | Summary of Care ---
Author Name Unknown Organization [facility] Address [address] [facility] [place] [address] Phone [phone] Care Team Providers Care Medical Technicians Name Role Phone Joey Cody DO Primary Care Provid er Reason for Visit * Reason Comments eRx-Medication Refill Encounter Details Date Type Department Care Team ([facility] st Contact Info) Description 07/04/2023 Refill Family [facility] [address] [place] [address] Joey Cody DO [address] [place] [address] Chronic right-sided low back pain with right-sided sciatica; Spinal stenosis of lumbar region without neurogenic claudication; Chronic bilateral low back pain with bilateral sciatica Allergies Active Allergy Reactions Criticality Noted Date Comments Pioglitazone Hydrochloride Other (Please comment) 11/19/2009 palpitations Erythromycin Base Rash 11/19/2009 Metformin 09/24/2011 Metformin Hcl Other (Please comment) 11/19/2009 palpitations Prednisone 11/19/2009 syncope documented as of this encounter (statuses as of 07/05/2023) Medications Medication Sig Dispensed Refills Start Date [...] Tablet Sublingual (Nitrostat)Indicati ons:Coronary artery disease involving [place] coronary artery of [place] heart without angina pectoris Place 1 Tablet [...] goal LDL below 70,Coronary artery disease involving [place] coronary artery of [place] heart without angina pectoris Take 1 Tablet [...] WITH FOOD 90 Tablet 3 3 Active tiZANidine HCl 4 MG Oral Tablet (Zanaflex)Indicatio ns:Chronic right-sided low back pain with right-sided sciatica Take 1 Tablet by mouth every 8 hours as needed for Muscle spasms. 90 Tablet 1 3 Active Blood Glucose Test Strips 333 [...] Hour (toPROL XL)Indications:Gabriele nary artery disease involving [place] coronary artery of [place] heart without angina pectoris TAKE ONE TABLET [...] for Pain, Moderate. 120 Tablet 0 4 07/05/19 24 Discontinued Buprenorphine 15 MCG/HR Transdermal Patch WeeklyIndications:S jose enrique stenosis of lumbar region without neurogenic claudication,Chroni c bilateral low back pain with bilateral sciatica Place 1 Patch topically on the skin once a week. 4 Patch 0 4 07/05/19 24 Discontinued documented as of this encounter (statuses as of 07/05/2023) Active Problems Problem Noted Date Diagnosed Date [...] as of this encounter (statuses as of 07/05/2023) Resolved Problems Problem Noted Date Diagnosed Date [...] as of this encounter (statuses as of 07/05/2023) Immunizations Name Administration Dates Next Due Pneumococcal [...] Telephone Encounter - Joey Cody DO - 07/05/2023 4:44 PM EST Signed Prescriptions: Disp Refills HYDROcodone-Acetaminophen 10-325 MG Oral T*120 Ta*0 Sig: Take 1 Tablet by mouth every 6 hours as needed for Pain, Moderate. Authorizing Provider: JOEY CODY Buprenorphine 15 MCG/HR Transdermal Patch *4 Patch0 Sig: Place 1 Patch topically on the skin once a week. Authorizing Provider: JOEY CODY - * Telephone Encounter - Kaye Woodruff RP - 07/05/2023 1:41 PM ESTPending Prescriptions: Disp Refills HYDROcodone-Acetaminophen 10-325 MG Oral T*120 Ta*0 Sig: Take 1 Tablet by mouth every 6 hours as needed for Pain, Moderate. Buprenorphine 15 MCG/HR Transdermal Patch *4 Patch0 Sig: Place 1 Patch topically on the skin once a week. * Telephone Encounter - Kaye Woodruff RPh - 07/05/2023 1:39 PM EST I have reviewed the patients controlled substance dispensing history in the Prescription Drug Monitoring Program in compliance with the [facility] regulations before prescribing a controlled substance. PDMP checked on 07/05/2023. Pending Prescriptions: Disp Refills HYDROcodone-Acetaminophen 10-325 MG Oral *120 Ta*0 Sig: Take 1 Tablet by mouth every 6 hours as needed for Pain, Moderate. Buprenorphine 15 MCG/HR Transdermal Patch*4 Patch0 Sig: Place 1 Patch topically on the skin once a week. Last Visit: 04/06/2023 (in office), Visit date not found (telemedicine) Next Visit: 07/20/2023 Date medication was last filled: 05/09/23, 06/06/23 Date medication is due for refill: 06/07/23, 07/03/23 Pharmacy: [facility] [address] Is this request for a controlled [...] upon request. Please approve if appropriate. Thanks, Kaye Woodruff, PharmD Clinical Pharmacist [facility] ([facility]) [phone] 07/05/2023, 1:39 PM documented in this encounter Plan of Treatment Upcoming Encounters Date Type Department Care Team ([facility] st Contact Info) Description 07/13/2023 11:00 AM EDT Laboratory Laboratory Patient Service [place], [address] [phone] [address] 07/20/2023 2:40 PM EDT [place] [address] Pharmacist2, [facility] [address] [address] 07/20/2023 3:20 PM EDT Office Visit Family [address] [address] Joey Cody DO [address] [place] [address] Health Maintenance Due Date Last Done Comments Pneumococcal Vaccine: 65+ Years (1 of 2 - PCV) 1948 DTaP,Tdap,and Td Vaccines (1 - Tdap) 1961 Zoster Vaccines (1 of 2) 1992 COVID-19 Vaccine (1 - 2022- season) 2022 Influenza Vaccine (FLU shot) (#1) 2022 Diabetic Foot Exam 06/21/2023 06/21/2022, 0 06/17/2021, 05/26/2020, Additional history exists HbA1c 09/15/2023 03/17/2023, 0808/2022, 06/14/2022, Additional history exists Albumin/Creatinine Ratio 12/15/2023 [...] this encounter Medical Devices Implanted Type Area Certified Alcohol And Drug Counselor Device Identifier Shelf Expiration Date Model / Serial / Lot Sut Steel 6 M654g - [id number] Implanted:Qty: 4 on 06/18/2016 by Wicho Mason MD [place] [facility] [place]A: Sternum JNJ : [employer] 03/31/2021 [id number] / / [id number] Graft Marker Coronary - [id number] Implanted:Qty: 1 on 06/18/2016 by Wicho Mason MD [place] [facility] [place]/A: Aorta VM CARDIO VASCULAR 10/29/2017 [id number] / / [id number] documented as of this encounter Visit Diagnoses Diagnosis Chronic right-sided low back pain with right-sided sciatica Spinal stenosis of lumbar region without neurogenic [...] the patient have Health Care Power of Engineer Specialist? No Code Status History Code Status Date Activated Date Inactivated Comments Full Code 06/15/2016 6:13 PM 06/18/2016 7:28 AM This order reflects the patients wishes and were consensually agreed upon. Question Answer Comments Discussion of Advance Directives occurred with: Patient Does the patient have a Living Will? No Does the patient have Health Care Power of Engineer Specialist? No Care Teams Medical Technicians Relationship Specialty Start Date End Date Joey Cody DO [address] [place] [address] PCP - General Internal Medicine 12/03/20 documented as of this encounter
--- OUTSIDE RECORDS SUMMARY | 2023-11-02 14:18 | External Medical Summary | Summary of Care ---
Author Name Unknown Organization [facility] Address [address] [place] [place] [address] Phone [phone] Care Team Providers Care Relay Tester Helper Name Role Phone Joey Rose DO Primary Care Provid er Reason for Visit * Reason Comments Outpatient Testing Encounter Details Date Type Department Care Team ([facility] st Contact Info) Description 07/15/2023 1:10 PM EDT Laboratory Laboratory Patient Service [address] [phone] [phone] Type 2 diabetes mellitus with diabetic peripheral angiopathy without gangrene, with long-term current use of insulin ([facility]) Allergies Active Allergy Reactions Criticality Noted Date Comments Pioglitazone Hydrochloride Other (Please comment) 11/19/2009 palpitations Erythromycin Base Rash 11/19/2009 Metformin 09/24/2011 Metformin Hcl Other (Please comment) 11/19/2009 palpitations Prednisone 11/19/2009 syncope documented as of this encounter (statuses as of 07/15/2023) Medications Medication Sig Dispensed Refills Start Date [...] Tablet Sublingual (Nitrostat)Indicatio ns:Coronary artery disease involving [place] coronary artery of [place] heart without angina pectoris Place 1 Tablet [...] goal LDL below 70,Coronary artery disease involving [place] coronary artery of [place] heart without angina pectoris Take 1 Tablet [...] Hour (toPROL XL)Indications:Coron austyn artery disease involving [place] coronary artery of [place] heart without angina pectoris TAKE ONE TABLET [...] as of this encounter (statuses as of 07/15/2023) Active Problems Problem Noted Date Diagnosed Date [...] as of this encounter (statuses as of 07/15/2023) Resolved Problems Problem Noted Date Diagnosed Date [...] as of this encounter (statuses as of 07/15/2023) Immunizations Name Administration Dates Next Due Pneumococcal [...] Team (Late st Contact Info) Description 07/20/2023 2:40 PM EDT [place] [address] Pharmacist2, [place] [address] 07/20/2023 3:20 PM EDT Office Visit Family [facility] [address] Joey Rose, [address] [place] [address] Pending Results Name Type Priority Associated Diagnoses Date /Time COMPREHENSIVE METABOLIC PANEL Lab Routine Type 2 diabetes mellitus with diabetic peripheral angiopathy without gangrene, with long-term current use of insulin (HCC) 07/15/2023 1:13 PM EDT HEMOGLOBIN A1C Lab Routine Type 2 diabetes mellitus with diabetic peripheral angiopathy without gangrene, with long-term current use of insulin (HCC) 07/15/2023 1:13 PM EDT Health Maintenance Due Date Last Done Comments [...] this encounter Medical Devices Implanted Type Area Digital Strategist Device Identifier Shelf Expiration Date Model / Serial / Lot Sut Steel 6 M654g - [id number] Implanted:Qty: 4 on 06/18/2016 by Wicho Mason MD at [place] [facility] [place] N/A: Sternum JNJ : [employer] 03/31/2021 [id number] / / [id number] Graft Marker Coronary - [id number] Implanted:Qty: 1 on 06/18/2016 by Wicho Mason MD at [place] [facility] [place] N/A: Aorta VM CARDIO VASCULAR 10/29/2017 [id number] / / [id number] documented as of this encounter Visit Diagnoses Diagnosis Type 2 diabetes mellitus with diabetic peripheral angiopathy without gangrene, with long-term current use of insulin (HCC) documented in this encounter Advance Directives Latest Code Status on File Code Status Date Activated Date Inactivated Comments Full Code 06/18/2016 1:14 PM 06/23/2016 4:44 PM This order reflects the patients wishes and were consensually agreed upon. Question Answer Comments Discussion of Advance Directives occurred with: Patient Does the patient have a Living Will? No Does the patient have Health Care Power of Front End Driver? No Code Status History Code Status Date Activated Date Inactivated Comments Full Code 06/15/2016 6:13 PM 06/18/2016 7:28 AM This order reflects the patients wishes and were consensually agreed upon. Question Answer Comments Discussion of Advance Directives occurred with: Patient Does the patient have a Living Will? No Does the patient have Health Care Power of Front End Driver? No Care Teams Relay Tester Helper Relationship Specialty Start Date End Date Joey Rose DO [address] [place] [address] PCP - General Internal Medicine 12/03/20 documented as of this encounter
--- OUTSIDE RECORDS SUMMARY | 2023-11-02 14:18 | External Medical Summary | Summary of Care ---
Author Name Unknown Organization [facility] Address [address] [facility] [place] [address] Phone [phone] Care Team Providers Care Cooker Syrup Name Role Phone Joey Rose DO Primary Care Provid er Reason for Visit * Reason Comments Outpatient Testing Encounter Details Date Type Department Care Team ([facility] st Contact Info) Description 07/15/2023 1:10 PM EDT Laboratory Laboratory Patient Service [address] [phone] [id number] Type 2 diabetes mellitus with diabetic peripheral angiopathy without gangrene, with long-term current use of insulin ([facility]) Allergies Active Allergy Reactions Criticality Noted Date [...] Tablet Sublingual (Nitrostat)Indicatio ns:Coronary artery disease involving [place] coronary artery of [place] heart without angina pectoris Place 1 Tablet [...] goal LDL below 70,Coronary artery disease involving [place] coronary artery of [place] heart without angina pectoris Take 1 Tablet [...] Hour (toPROL XL)Indications:Coron austyn artery disease involving [place] coronary artery of [place] heart without angina pectoris TAKE ONE TABLET [...] 07/20/2023 2:40 PM [place] [address] Pharmacist2, [place] [address] 07/20/2023 3:20 PM EDT [facility] Visit [facility] [address] Joey Rose, [address] [place] [address] Pending Results Name Type Priority Associated Diagnoses [...] this encounter Medical Devices Implanted Type Area Sales Assistant Institutional Sales Device Identifier Shelf Expiration Date Model / Serial / Lot Sut Steel 6 M654g - [id number] Implanted:Qty: 4 on 06/18/2016 by Wicho Mason MD at OR [facility] [place] N/A: Sternum JNJ : [employer] 03/31/2021 [id number] / / [id number] Graft Marker Coronary - [id number] Implanted:Qty: 1 on 06/18/2016 by Wicho Mason MD at OR [facility] N/A: Aorta VM CARDIO VASCULAR 10/29/2017 [id number] / / [id number] documented as of this encounter Visit Diagnoses [...] the patient have Health Care Power of Tuber Machine Operator? No Code Status History Code Status Date Activated Date Inactivated Comments Full Code 06/15/2016 6:13 PM 06/18/2016 7:28 AM This order reflects the patients wishes and were consensually agreed upon. Question Answer Comments Discussion of Advance Directives occurred with: Patient Does the patient have a Living Will? No Does the patient have Health Care Power of Tuber Machine Operator? No Care Teams Cooker Syrup Relationship Specialty Start Date End Date Joey Rose DO [address] [place] [address] PCP - General Internal Medicine 12/03/20 documented as of this encounter
--- OUTSIDE RECORDS SUMMARY | 2023-11-02 14:18 | External Medical Summary | Summary of Care ---
Author Name Unknown Organization [facility] Address [address] [facility] [place] [address] Phone [phone] Care Team Providers Care Photographic Lithographer Name Role Phone Joey Rose DO Primary Care Provid er Reason for Visit * Reason Onset Date Comments Medication Pre-auth 07/04/2023 tiZANidine H Cl 4 MG Oral Tablet (Zanaflex) Encounter Details Date Type Department Care Team ([facility] st Contact Info) Description 07/04/[address] [address] Joey Rose DO [address] [place] [address] Medication Pre-auth (tiZANidine HCl 4 MG [...] Tablet Sublingual (Nitrostat)Indication s:Coronary artery disease involving [place] coronary artery of [place] heart without angina pectoris Place 1 [...] goal LDL below 70,Coronary artery disease involving [place] coronary artery of [place] heart without angina pectoris Take 1 [...] Hour (toPROL XL)Indications:Davalos ry artery disease involving [place] coronary artery of [place] heart without angina pectoris TAKE ONE [...] 11:37 AM EST PACE contacted at phone: [phone], They will be faxing over [place] forms to [phone] Please fill out and fax back when possible Thank you, Dominick Oneal ([facility]) Manager Social Media III Centralized Clin[facility] Pharmacy Services (CCPS) (formerly Telepharmacy) 07/06/2023, 11:37 AM * Telephone Encounter - Keerthi Bob [facility] - 07/06/2023 10:07 AM EST [...] upon this and route back to the [facility] if no decision is made by the insurance by 07/08/23, after clarifying with the pharmacy that the claim is still not processing. If PA is denied, please also route back to [facility]. Thanks, Keerthi Bob [facility] Clinical Pharmacist Centralized Clinical Pharmacy Services (CCPS) (Formerly Telepharmacy) [phone] * Telephone Encounter - Akira Baer, cutter and edge trimmer - 07/04/2023 11:54 AM EST Pharmacy calling to inform doctor that the patient's insurance will not pay for this medication without a completed prior authorization. Did confirm this information with the pharmacy. Pt's current insurance information is as follows: Patient name: Samuel Roman ID number: [id number] BIN number: [id number] PCN number: [id number] Group number: [id number] Subscriber name: Samuel Roman Primary or Secondary Insurance:Secondary Medication: tiZANidine HCl 4 MG Oral Tablet (Zanaflex) Reason for Request: requires diagnosis code and PA Pharmacy and phone number: [facility] [address] [phone] Rx plan and phone number: PACE Is this a new medication for the patient? No. How did the patient obtain the medication on the lastfill? It was covered last time on this same insurance. What alternative medications does the pharmacy have in stock?: n/a Thank you, Akira Baer Excellence Consultant I Centralized Clinical Pharmacy Services (CCPS)(formerly Telepharmacy) 07/04/2023,11:55 AM documented in this encounter Plan of Treatment Upcoming Encounters Date Type Department Care Team ([facility] st Contact Info) Description 07/13/2023 11:00 AM EDT Laboratory Laboratory Patient Service Center, [address] [phone] [address] 07/20/2023 2:40 PM EDT Office Visit Pharmacy [place] [phone] Pharmacist2, [facility] [address] [phone] 07/20/2023 3:20 PM EDT Office Visit Family Practice [address] [address] Joey Rose, [address] [address] Health Maintenance Due Date Last [...] this encounter Medical Devices Implanted Type Area Media Center Assistant Device Identifier Shelf Expiration Date Model / Serial / Lot Sut Steel 6 M654g - [id number] Implanted:Qty: 4 on 06/18/2016 by Wicho Mason MD at OR [facility] N/A: Sternum JNJ : [employer] 03/31/2021 [id number] / / [id number] Graft Marker Coronary - [id number] Implanted:Qty: 1 on 06/18/2016 by Wicho Mason MD at OR [facility] N/A: Aorta VM CARDIO VASCULAR 10/29/2017 [id number] / / [id number] documented as of this encounter Advance Directives [...] the patient have Health Care Power of Cashier Assistant? No Code Status History Code Status Date Activated Date Inactivated Comments Full Code 06/15/2016 6:13 PM 06/18/2016 7:28 AM This order reflects the patients wishes and were consensually agreed upon. Question Answer Comments Discussion of Advance Directives occurred with: Patient Does the patient have a Living Will? No Does the patient have Health Care Power of Cashier Assistant? No Care Teams Photographic Lithographer Relationship Specialty Start Date End Date Joey Rose DO [address] [place] [address] [phone] PCP - General Internal Medicine 12/03/20 documented as of this encounter
--- OUTSIDE RECORDS SUMMARY | 2023-11-02 14:18 | External Medical Summary | Summary of Care ---
Author Name Unknown Organization [facility] Address [address] [facility] [address] Phone [phone] Care Team Providers Care Projection Camera Operator Name Role Phone Joey Cody DO Primary Care Provid er Reason for Visit * Reason Comments eRx-Medication Refill Encounter Details Date Type Department Care Team ([facility] st Contact Info) Description 06/27/2023 Refill Family [facility] [address] [place] [address] Joey Cody DO [address] [place] [address] Coronary artery disease involving [place] coronary artery of [place] heart without angina pectoris Allergies Active Allergy Reactions Criticality Noted Date Comments Pioglitazone Hydrochloride Other (Please comment) 11/19/2009 palpitations Erythromycin Base Rash 11/19/2009 Metformin 09/24/2011 Metformin Hcl Other (Please comment) 11/19/2009 palpitations Prednisone 11/19/2009 syncope documented as of this encounter (statuses as of 06/27/2023) Medications Medication Sig Dispensed Refills Start Date End Date Status aspirin 81 MG chewable tablet Take 1 Tablet by mouth in the morning and 1 Tablet before bedtime. With food.. 100 Tab 0 9 Active Diclofenac Sodium 1 % gelIndications:Gene ralized osteoarthritis apply two grams topically to affected area(s) twice daily as directed 100 g 5 09/08/202 0 Active Additional Information Patient taking differently: Indications: pain, Reported on 08/20/2022 Insulin Syringe 31G X 5/16" 1 MLIndications:DM type 2, goal: symptom mgmt (HCC) Inject under the skin. Inject under skin 2 times daily as directed Dx: DM type 2, goal: symptom mgmt, E11.9 100 Each 5 0 Active Nitroglycerin 0.4 MG Sublingual Tablet Sublingual (Nitrostat)Indicati ons:Coronary artery disease involving [place] coronary artery of [place] heart without angina pectoris Place 1 Tablet [...] goal LDL below 70,Coronary artery disease involving [place] coronary artery of [place] heart without angina pectoris Take 1 Tablet [...] AND DINNER. 60 mL 3 3 Active HYDROcodone-Acetami nophen 10-325 MG Oral TabletIndications:C [...] a week. 4 Patch 0 4 Active Trulicity 4.5 MG/0.5ML Subcutaneous Solution Pen-injector (Dulaglutide) Inject 4.5 mg under the skin once a week. 6 mL 3 4 Active Metoprolol Succinate ER 50 MG Oral Tablet Extended Release 24 Hour (toPROL XL)Indications:Gabriele nary artery disease involving [place] coronary artery of [place] heart without angina pectoris TAKE ONE TABLET BY MOUTH ONCE DAILY 90 Tablet 0 4 Active Metoprolol Succinate ER 50 MG Oral Tablet Extended Release 24 Hour (toPROL XL)Indications:Gabriele nary artery disease involving [place] coronary artery of [place] heart without angina pectoris Take 1 Tablet by mouth in the morning. 90 Tablet 1 3 06/27/19 24 Discontinued documented as of this encounter (statuses as of 06/27/2023) Active Problems Problem Noted Date Diagnosed Date [...] as of this encounter (statuses as of 06/27/2023) Resolved Problems Problem Noted Date Diagnosed Date [...] as of this encounter (statuses as of 06/27/2023) Immunizations Name Administration Dates Next Due Pneumococcal [...] encounter Miscellaneous Notes * Telephone Encounter - Isidra Murdock RPh - 06/27/2023 9:54 PM EST Signed Prescriptions: Disp Refills Metoprolol Succinate ER 50 MG Oral Tablet *90 Tab*0 Sig: TAKE ONE TABLET BY MOUTH ONCE DAILYAuthorizing Provider: JOEY CODY User: ISIDRA MURDOCK documented in this encounter Plan of Treatment Upcoming Encounters Date Type Department Care Team ([facility] Contact Info) Description 07/13/2023 11:00 AM EDT Laboratory Laboratory Patient Service Center, [address] [phone] [place] [address] 07/20/2023 2:40 PM EDT Office Visit Pharmacy [place] [phone] Pharmacist2, [facility] [address] [address] 07/20/2023 3:20 PM EDT Office Visit Family Practice [address] [phone] Joey Cody DO [address] [place] [address] Health Maintenance Due Date Last Done Comments [...] this encounter Medical Devices Implanted Type Area Glass Bulb Machine Adjuster Device Identifier Shelf Expiration Date Model / Serial / Lot Sut Steel 6 M654g - [id number] Implanted:Qty: 4 on 06/18/2016 by Wicho Mason MD [place] [facility] [place]/A: Sternum JNJ : [employer] 03/31/2021 M654G / / [id number] Graft Marker Coronary - [id number] Implanted:Qty: 1 on 06/18/2016 by Wicho Mason MD at [place] [facility] N/A: Aorta VM CARDIO VASCULAR 10/29/2017 [id number] / / [id number] documented as of this encounter Visit Diagnoses Diagnosis Coronary artery disease involving [place] coronary artery of [place] heart without angina pectoris documented in this encounter Advance Directives Latest Code Status on File Code Status Date Activated Date Inactivated Comments Full Code 06/18/2016 1:14 PM 06/23/2016 4:44 PM This order reflects the patients wishes and were consensually agreed upon. Question Answer Comments Discussion of Advance Directives occurred with: Patient Does the patient have a Living Will? No Does the patient have Health Care Power of Inside Horticultural Specialty Grower? No Code Status History Code Status Date Activated Date Inactivated Comments Full Code 06/15/2016 6:13 PM 06/18/2016 7:28 AM This order reflects the patients wishes and were consensually agreed upon. Question Answer Comments Discussion of Advance Directives occurred with: Patient Does the patient have a Living Will? No Does the patient have Health Care Power of Inside Horticultural Specialty Grower? No Care Teams Projection Camera Operator Relationship Specialty Start Date End Date Joey Cody DO [address] [place] [address] PCP - General Internal Medicine 12/03/20 documented as of this encounter
--- OUTSIDE RECORDS SUMMARY | 2023-11-02 14:18 | External Medical Summary | Summary of Care ---
Author Name Unknown Organization [facility] Address [address] [facility] [place] [address] Phone [phone] Care Team Providers Care Race Car Driver Name Role Phone Joey Rose DO Primary Care Provid er Reason for Visit * Reason Onset Date Comments Medication Pre-auth 07/04/2023 tiZANidine H Cl 4 MG Oral Tablet (Zanaflex) Encounter Details Date Type Department Care Team ([facility] st Contact Info) Description 07/04/[address] [address] Joey Rose DO [address] [place] [address] Medication Pre-auth (tiZANidine HCl 4 MG [...] Tablet Sublingual (Nitrostat)Indication s:Coronary artery disease involving [place] coronary artery of [place] heart without angina pectoris Place 1 Tablet [...] goal LDL below 70,Coronary artery disease involving [place] coronary artery of [place] heart without angina pectoris Take 1 Tablet [...] Hour (toPROL XL)Indications:Davalos ry artery disease involving [place] coronary artery of [place] heart without angina pectoris TAKE ONE TABLET [...] 11:37 AM EST PACE contacted at phone: [phone], They will be faxing over [place] forms to [phone] Please fill out and fax back when possible Thank you, Dominick Oneal ([facility]) Agricultural Education Professor III Centralized Clincal Pharmacy Services (CCPS) (formerly Telepharmacy) 07/06/2023, 11:37 AM * Telephone Encounter - Keerthi Bob [facility] - 07/06/2023 10:07 AM EST Please [...] upon this and route back to the [facility] if no decision is made by the insurance by 07/08/23, after clarifying with the pharmacy that the claim is still not processing. If PA is denied, please also route back to [facility]. Thanks, Keerthi Bob [facility] Clinical Pharmacist Centralized Clinical Pharmacy Services (CCPS) (Formerly Telepharmacy) [phone] * Telephone Encounter - Akira Baer, mailroom coordinator - 07/04/2023 11:54 AM EST Pharmacy calling to inform doctor that the patient's insurance will not pay for this medication without a completed prior authorization. Did confirm this information with the pharmacy. Pt's current insurance information is as follows: Patient name: Samuel Roman ID number: [id number] BIN number: [id number] PCN number: [id number] Group number: [id number] Subscriber name: Samuel Roman Primary or Secondary Insurance:Secondary Medication: tiZANidine HCl 4 MG Oral Tablet (Zanaflex) Reason for Request: requires diagnosis code and PA Pharmacy and phone number: [facility] [address] [phone] Rx plan and phone number: PACE Is this a new medication for the patient? No. How did the patient obtain the medication on the lastfill? It was covered last time on this same insurance. What alternative medications does the pharmacy have in stock?: n/a Thank you, Akira Baer Photograph Editor I Centralized Clinical Pharmacy Services (CCPS)(formerly Telepharmacy) 07/04/2023,11:55 AM documented in this encounter Plan of Treatment Upcoming Encounters Date Type Department Care Team ([facility] st Contact Info) Description 07/13/2023 11:00 AM EDT Laboratory Laboratory Patient Service Center, [address] [phone] [address] 07/20/2023 2:40 PM EDT Office Visit Pharmacy [place] [phone] Pharmacist2, [facility] [address] [phone] 07/20/2023 3:20 PM EDT Office Visit Family Practice [address] [phone] Joey Rose, [address] [address] Health Maintenance Due Date Last [...] this encounter Medical Devices Implanted Type Area Sewer And Cutter Finger Buff Material Device Identifier Shelf Expiration Date Model / Serial / Lot Sut Steel 6 M654g - [id number] Implanted:Qty: 4 on 06/18/2016 by Wicho Mason MD at OR [facility] N/A: Sternum JNJ : [employer] 03/31/2021 M654G / / [id number] Graft Marker Coronary - [id number] Implanted:Qty: 1 on 06/18/2016 by Wicho Mason MD at OR [facility] N/A: Aorta VM CARDIO VASCULAR 10/29/2017 [id number] / / [id number] documented as of this encounter Advance Directives [...] the patient have Health Care Power of Sephora Operations Consultant? No Code Status History Code Status Date Activated Date Inactivated Comments Full Code 06/15/2016 6:13 PM 06/18/2016 7:28 AM This order reflects the patients wishes and were consensually agreed upon. Question Answer Comments Discussion of Advance Directives occurred with: Patient Does the patient have a Living Will? No Does the patient have Health Care Power of Sephora Operations Consultant? No Care Teams Race Car Driver Relationship Specialty Start Date End Date Joey Rose DO [address] [place] [address] [phone] PCP - General Internal Medicine 12/03/20 documented as of this encounter
--- OUTSIDE RECORDS SUMMARY | 2023-11-02 14:18 | External Medical Summary | Summary of Care ---
Author Name Unknown Organization [facility] Address [address] [facility] [place] [address] Phone [phone] Care Team Providers Care Stock Grader Name Role Phone Joey Rose DO Primary Care Provid er Reason for Visit * Reason Onset Date Comments Medication Pre-auth 07/04/2023 tiZANidine H Cl 4 MG Oral Tablet (Zanaflex) Encounter Details Date Type Department Care Team ([facility] st Contact Info) Description 07/04/[address] [phone] Joey Rose DO [address] [place] [address] Medication Pre-auth (tiZANidine HCl 4 MG [...] Tablet Sublingual (Nitrostat)Indication s:Coronary artery disease involving [place] coronary artery of [place] heart without angina pectoris Place 1 Tablet [...] LDL below 70,Coronary artery disease involving [place] coronary artery of [place] heart without angina pectoris Take 1 Tablet [...] Hour (toPROL XL)Indications:Davalos ry artery disease involving [place] coronary artery of [place] heart without angina pectoris TAKE ONE TABLET [...] 11:37 AM EST PACE contacted at phone: [phone], They will be faxing over [place] forms to [phone] Please fill out and fax back when possible Thank you, Dominick Oneal ([facility]) Instrument/Control Technician III Centralized Clincal Pharmacy Services (CCPS) (formerly Telepharmacy) 07/06/2023, 11:37 AM * Telephone Encounter - Keerthi Bob [facility] - 07/06/2023 10:07 AM EST Please [...] route back to the [facility] if no decision is made by the insurance by 07/08/23, after clarifying with the pharmacy that the claim is still not processing. If PA is denied, please also route back to [facility]. Thanks, Keerthi Bob [facility] Clinical Pharmacist Centralized Clinical Pharmacy Services (CCPS) (Formerly Telepharmacy) [phone] * Telephone Encounter - Akira Baer, video game engineer - 07/04/2023 11:54 AM EST Pharmacy calling to inform doctor that the patient's insurance will not pay for this medication without a completed prior authorization. Did confirm this information with the pharmacy. Pt's current insurance information is as follows: Patient name: Samuel Roman ID number: [id number] BIN number: [id number] PCN number: [id number] Group number: [id number] Subscriber name: Samuel Roman Primary or Secondary Insurance:Secondary Medication: tiZANidine HCl 4 MG Oral Tablet (Zanaflex) Reason for Request: requires diagnosis code and PA Pharmacy and phone number: [facility] [address] [phone] Rx plan and phone number: PACE Is this a new medication for the patient? No. How did the patient obtain the medication on the lastfill? It was covered last time on this same insurance. What alternative medications does the pharmacy have in stock?: n/a Thank you, Akira Baer Mergers And Acquisitions Consultant I Centralized Clinical Pharmacy Services (CCPS)(formerly Telepharmacy) 07/04/2023,11:55 AM documented in this encounter Plan of Treatment Upcoming Encounters Date Type Department Care Team ([facility] st Contact Info) Description 07/13/2023 11:00 AM EDT Laboratory Laboratory Patient Service Center, [address] [phone] [address] 07/20/2023 2:40 PM EDT Office Visit Pharmacy [place] [phone] Pharmacist2, [facility] [address] [phone] 07/20/2023 3:20 PM EDT Office Visit Family Practice [address] [phone] Joey Rose, [address] [address] Health Maintenance Due Date Last [...] this encounter Medical Devices Implanted Type Area Transportation Logistics Internship Device Identifier Shelf Expiration Date Model / Serial / Lot Sut Steel 6 M654g - [id number] Implanted:Qty: 4 on 06/18/2016 by Wicho Mason MD at [place] [facility] [place] N/A: Sternum JNJ : [employer] 03/31/2021 M654G / / [id number] Graft Marker Coronary - [id number] Implanted:Qty: 1 on 06/18/2016 by Wicho Mason MD at [place] [facility] N/A: Aorta VM CARDIO VASCULAR 10/29/2017 [id number] / / [id number] documented as of this encounter Advance Directives [...] the patient have Health Care Power of Movie Producer? No Code Status History Code Status Date Activated Date Inactivated Comments Full Code 06/15/2016 6:13 PM 06/18/2016 7:28 AM This order reflects the patients wishes and were consensually agreed upon. Question Answer Comments Discussion of Advance Directives occurred with: Patient Does the patient have a Living Will? No Does the patient have Health Care Power of Movie Producer? No Care Teams Stock Grader Relationship Specialty Start Date End Date Joey Rose DO [address] [place] [address] [phone] PCP - General Internal Medicine 12/03/20 documented as of this encounter
--- OUTSIDE RECORDS SUMMARY | 2023-11-02 14:18 | External Medical Summary ---
Author Name Unknown Address Unknown Organization K01:[facility] [place] - [address] [place] [address] Laboratory Report Ordering Provider Test Date Status GLO MENDIOLA 07/15/2023 13:13:35 Final Observation Date Value Abnormality Reference (Units ) Status HbA1C 07/15/2023 13:13:35 6.2 Above high normal 4. 0-5.6 (%) Final The use of HbA1c to monitor glycemic status is based on normal hemoglobin and HbA composition. This test should not be used in patients with abnormal hemoglobin that affects the half life of the red blood cell or the in vivo glycation rates. Glucose, estimated average 07/15/2023 13:13:35 131 Above high normal <126 (mg/dL) Giacomo rosenberg Performing Location [facility] [place] - [address] [facility] [address]
--- OUTSIDE RECORDS SUMMARY | 2023-11-02 14:19 | External Medical Summary | Summary of Care ---
Author Name Unknown Organization [facility] Address [address] [facility] [place] [address] Phone [phone] Care Team Providers Care Automation Application Engineer Name Role Phone Joey Cody DO Primary Care Provid er Reason for Visit * Reason Comments eRx-Medication Refill Encounter Details Date Type Department Care Team ([facility] st Contact Info) Description 06/05/2023 Refill Family Practice [facility] [address] [place] [address] Joey Cody DO [address] [place] [address] Spinal stenosis of lumbar region without neurogenic claudication; Chronic bilateral low back pain with bilateral sciatica Allergies Active Allergy Reactions Criticality Noted Date Comments Pioglitazone Hydrochloride Other (Please comment) 11/19/2009 palpitations Erythromycin Base Rash 11/19/2009 Metformin 09/24/2011 Metformin Hcl Other (Please comment) 11/19/2009 palpitations Prednisone 11/19/2009 syncope documented as of this encounter (statuses as of 06/06/2023) Medications Medication Sig Dispensed Refills Start Date [...] Tablet Sublingual (Nitrostat)Indicati ons:Coronary artery disease involving [place] coronary artery of [place] heart without angina pectoris Place 1 Tablet [...] Erectile Dysfunction. 10 Tablet 3 3 Active Metoprolol Succinate ER 50 MG Oral Tablet Extended Release 24 Hour (toPROL XL)Indications:Gabriele nary artery disease involving [place] coronary artery of [place] heart without angina pectoris Take 1 Tablet by mouth in the morning. 90 Tablet 1 3 Active Lisinopril 5 MG Oral Tablet (Prinivil)Indicatio ns:HTN, goal below 140/90,Dyslipidemia , goal LDL below 70,Coronary artery disease involving [place] coronary artery of [place] heart without angina pectoris Take 1 Tablet [...] daily 400 Strip 11 3 Active Trulicity 3 MG/0.5ML Subcutaneous Solution Pen-injector (Dulaglutide) Inject 3 mg under the skin once a week. 6 mL 3 3 Active NovoLIN 70/30 (70-30) 100 UNIT/ML [...] once a week. 4 Patch 0 4 06/06/19 24 Discontinued documented as of this encounter (statuses as of 06/06/2023) Active Problems Problem Noted Date Diagnosed Date [...] as of this encounter (statuses as of 06/06/2023) Resolved Problems Problem Noted Date Diagnosed Date [...] as of this encounter (statuses as of 06/06/2023) Immunizations Name Administration Dates Next Due Pneumococcal [...] Telephone Encounter - Joey Cody DO - 06/06/2023 12:14 PM EST Signed Prescriptions: Disp Refills Buprenorphine 15 MCG/HR Transdermal Patch *4 Patch0 Sig: Place 1 Patch topically on the skin once a week. Authorizing Provider: JOEY CODY * Telephone Encounter - Iván Farah [facility] - 06/06/2023 11:14 AM EST Pending Prescriptions: Disp Refills Buprenorphine 15 MCG/HR Transdermal Patch *4 Patch0 Sig: PLACE 1 PATCH TOPICALLY ONCE WEEKLY * Telephone Encounter - Iván Farah [facility] - 06/06/2023 11:10 AM EST I have reviewed the patients controlled substance dispensing history in the Prescription Drug Monitoring Program in compliance with the [facility] regulations before prescribing a controlled substance. PDMP checked on 06/06/2023. Pending Prescriptions: Disp Refills Buprenorphine 15 MCG/HR Transdermal Patch*4 Patch0 Sig: PLACE 1 PATCH TOPICALLY ONCE WEEKLY Last Visit: 04/06/2023 (in office), Visit date not found (telemedicine) Next Visit: 07/20/2023 Date medication was last filled: 05/11/23 Date medication is due for refill: 06/06/23 Pharmacy: [facility] [address] [facility] Is this request for a controlled substance? [...] upon request. Please approve if appropriate. Thanks, Iván Farah, IvettD Clinical Pharmacist Centralized Clinical Pharmacy Services (CCPS) (formerly Telepharmacy) [phone] 06/06/2023, 11:11 AM documented in this encounter Plan of Treatment Upcoming Encounters Date Type Department Care Team ([facility] st Contact Info) Description 06/16/2023 9:20 AM EST Pharmacy Pharmacy [address] [phone] Pharmacist2, [facility] [address] [address] 07/13/2023 11:00 AM EDT Laboratory [facility], [address] [phone] [facility] [address] [address] 07/20/2023 3:20 PM EDT Office Visit [address] [place] [address] Mikaylaalber Joey Gaytan, DO [address] [place] [address] Health Maintenance Due Date Last Done Comments [...] this encounter Medical Devices Implanted Type Area Nut Grinder Device Identifier Shelf Expiration Date Model / Serial / Lot Graft Marker Coronary - [id number] Implanted:Qty: 1 on 06/18/2016 by Wicho Mason MD at [place] [facility] [place] N/A: Aorta VM CARDIO VASCULAR 10/29/2017 [id number] / / [id number] documented as of this encounter Visit Diagnoses [...] the patient have Health Care Power of Security Systems Specialist? No Code Status History Code Status Date Activated Date Inactivated Comments Full Code 06/15/2016 6:13 PM 06/18/2016 7:28 AM This order reflects the patients wishes and were consensually agreed upon. Question Answer Comments Discussion of Advance Directives occurred with: Patient Does the patient have a Living Will? No Does the patient have Health Care Power of Security Systems Specialist? No Care Teams Automation Application Engineer Relationship Specialty Start Date End Date Joey Cody DO [address] [place] [address] PCP - General Internal Medicine 12/03/20 documented as of this encounter
--- OUTSIDE RECORDS SUMMARY | 2023-11-02 14:19 | External Medical Summary | Summary of Care ---
Author Name Unknown Organization [facility] Address [address] [facility] [place] [address] Phone [phone] Care Team Providers Care Brand Development Manager Name Role Phone Joey Cody DO Primary Care Provid er Reason for Visit * Reason Comments eRx-Medication Refill Encounter Details Date Type Department Care Team ([facility] st Contact Info) Description 05/07/2023 Refill Family [facility] [address] [place] [address] Joey Cody DO [address] [place] [address] Spinal stenosis of lumbar region without neurogenic claudication; Chronic bilateral low back pain with bilateral sciatica; Chronic right-sided low back pain with right-sided sciatica Allergies Active Allergy Reactions Criticality Noted Date Comments Pioglitazone Hydrochloride Other (Please comment) 11/19/2009 palpitations Erythromycin Base Rash 11/19/2009 Metformin 09/24/2011 Metformin Hcl Other (Please comment) 11/19/2009 palpitations Prednisone 11/19/2009 syncope documented as of this encounter (statuses as of 05/09/2023) Medications Medication Sig Dispensed Refills Start Date [...] Tablet Sublingual (Nitrostat)Indicati ons:Coronary artery disease involving [place] coronary artery of [place] heart without angina pectoris Place 1 [...] Hour (toPROL XL)Indications:Gabriele nary artery disease involving [place] coronary artery of [place] heart without angina pectoris Take 1 Tablet by mouth in the morning. 90 Tablet 1 3 Active Lisinopril 5 MG Oral Tablet (Prinivil)Indicatio ns:HTN, goal below 140/90,Dyslipidemia , goal LDL below 70,Coronary artery disease involving [place] coronary artery of [place] heart without angina pectoris Take 1 [...] THE MORNING 90 Tablet 1 3 Active Samuel Aviles Lancets 33GIndications:Type 2 diabetes mellitus with diabetic [...] AND DINNER. 60 mL 3 3 Active Buprenorphine 15 MCG/HR Transdermal Patch WeeklyIndications:S [...] Pain, Moderate. 120 Tablet 0 4 Active HYDROcodone-Acetami nophen 10-325 MG Oral TabletIndications:C hronic right-sided low back pain with right-sided sciatica Take 1 Tablet by mouth every 6 hours as needed for Pain, Moderate. 120 Tablet 0 3 05/09/19 24 Discontinued Buprenorphine 15 MCG/HR Transdermal Patch Weekly (Butrans)Indication s:Spinal stenosis of lumbar region without neurogenic claudication,Chroni c bilateral low back pain with bilateral sciatica Place 1 Patch topically on the skin once a week. 4 Patch 0 3 05/09/19 24 Discontinued documented as of this encounter (statuses as of 05/09/2023) Active Problems Problem Noted Date Diagnosed Date [...] as of this encounter (statuses as of 05/09/2023) Resolved Problems Problem Noted Date Diagnosed Date [...] as of this encounter (statuses as of 05/09/2023) Immunizations Name Administration Dates Next Due Pneumococcal [...] Telephone Encounter - Joey Cody DO - 05/09/2023 2:21 PM EST Signed Prescriptions: Disp Refills Buprenorphine 15 MCG/HR Transdermal Patch *4 Patch0 Sig: Place 1 Patch topically on the skin once a week. Authorizing Provider: JOEY CODY HYDROcodone-Acetaminophen 10-325 MG Oral T*120 Ta*0 Sig: Take 1 Tablet by mouth every 6 hours as needed for Pain, Moderate. Authorizing Provider: JOEY CODY - * Telephone Encounter - Katheryn Dougherty [facility] - 05/09/2023 12:10 PM ESTPending Prescriptions: Disp Refills Buprenorphine 15 MCG/HR Transdermal Patch *4 Patch0 Sig: Place 1 Patch topically on the skin once a week. HYDROcodone-Acetaminophen 10-325 MG Oral T*120 Ta*0 Sig: Take 1 Tablet by mouth every 6 hours as needed for Pain, Moderate. * Telephone Encounter - Katheryn Dougherty RPh - 05/09/2023 12:09 PM EST I have reviewed the patients controlled substance dispensing history in the Prescription Drug Monitoring Program in compliance with the [facility] regulations before prescribing a controlled substance. PDMP checked on 05/09/2023. Pending Prescriptions: Disp Refills Buprenorphine 15 MCG/HR Transdermal Patch*4 Patch0 Sig: Place 1 Patch topically on the skin once a week. HYDROcodone-Acetaminophen 10-325 MG Oral *120 Ta*0 Sig: TAKE 1 TABLET BY MOUTH EVERY 6 HOURS NEEDED FOR PAIN Last Visit: 04/06/2023 (in office), Visit date not found (telemedicine) Next Visit: 07/20/2023 Date medication was last filled: 04/13/23, 03/29/23 Date medication is due for refill: 05/10/23, 04/27/23 Pharmacy: [facility] [address] Is this request for a [...] Clinical Pharmacy Services (CCPS - Formerly Telepharmacy) [phone] 05/09/2023 12:09 PM documented in this encounter Plan of Treatment Upcoming Encounters Date Type Department Care Team ([facility] st Contact Info) Description 05/25/2023 2:00 PM EST Office Visit Pharmacy [place] [phone] Pharmacist2, [facility] [address] [address] 07/13/2023 11:00 AM EDT Laboratory [facility], [address] [phone] Have, [facility] [address] [place] [address] 07/20/2023 3:20 PM EDT Office Visit Family [address] [phone] Joey Cody, [address] [place] [address] Health Maintenance Due Date Last Done Comments [...] this encounter Medical Devices Implanted Type Area Character Actor Device Identifier Shelf Expiration Date Model / Serial / Lot Graft Marker Coronary - [id number] Implanted:Qty: 1 on 06/18/2016 by Wicho Mason MD at [place] [facility] [place] N/A: Aorta VM CARDIO VASCULAR 10/29/2017 [id number] / / [id number] documented as of this encounter Visit Diagnoses Diagnosis Spinal stenosis of lumbar region without neurogenic claudication Spinal stenosis, lumbar region, without neurogenic claudication Chronic bilateral low back pain with bilateral sciatica Chronic right-sided low back pain with right-sided [...] the patient have Health Care Power of Windows Mobile Developer? No Code Status History Code Status Date Activated Date Inactivated Comments Full Code 06/15/2016 6:13 PM 06/18/2016 7:28 AM This order reflects the patients wishes and were consensually agreed upon. Question Answer Comments Discussion of Advance Directives occurred with: Patient Does the patient have a Living Will? No Does the patient have Health Care Power of Windows Mobile Developer? No Care Teams Brand Development Manager Relationship Specialty Start Date End Date Joey Cody DO [address] [place] [address] PCP - General Internal Medicine 12/03/20 documented as of this encounter
--- OUTSIDE RECORDS SUMMARY | 2023-11-02 15:22 | External Medical Summary | Summary of Care ---
Author Name Unknown Organization [facility] Address [address] [facility] [place] [address] Phone [phone] Care Team Providers Care Industrial Safety And Health Specialist Name Role Phone Joey Rose DO Primary Care Provid er Reason for Visit * Reason Comments eRx-Medication Refill Encounter Details Date Type Department Care Team ([facility] st Contact Info) Description 11/01/2023 Refill Family Practice [facility] [address] [place] [address] Joey Rose DO [address] [place] [address] Spinal stenosis of lumbar region without neurogenic claudication; Chronic bilateral low back pain with bilateral sciatica Allergies Active Allergy Reactions Criticality Noted Date Comments Pioglitazone Hydrochloride Other (Please comment) 11/19/2009 palpitations Erythromycin Base Rash 11/19/2009 Metformin 09/24/2011 Metformin Hcl Other (Please comment) 11/19/2009 palpitations Prednisone 11/19/2009 syncope documented as of this encounter (statuses as of 11/01/2023) Medications Medication Sig Dispensed Refills Start Date [...] Tablet Sublingual (Nitrostat)Indicatio ns:Coronary artery disease involving [place] coronary artery of [place] heart without angina pectoris Place 1 Tablet [...] goal LDL below 70,Coronary artery disease involving [place] coronary artery of [place] heart without angina pectoris Take 1 Tablet [...] Hour (toPROL XL)Indications:Coron [place] artery disease involving [place] coronary artery of [place] heart without angina pectoris TAKE ONE TABLET BY MOUTH ONCE DAILY 90 Tablet 3 09/20/2023 Active NovoLOG Mix 70/30 FlexPen (70-30) 100 UNIT/ML Suspension Pen-injector (Insulin Aspart Prot & Aspart)Indications:T ype 2 diabetes mellitus with diabetic peripheral angiopathy without gangrene, with long-term current use of insulin ([facility]) Inject under the skin 2 times a day. 70 units before breakfast and 70 units before supper. 120 mL 1 09/21/2023 Active Pen [place] 32G X 6 MMIndications:Type 2 diabetes mellitus with diabetic peripheral angiopathy without gangrene, with long-term current use of insulin ([facility]) Use as directed. Use to inject Novolog insulin twice a day 200 Each 1 09/21/2023 Active Trulicity 3 MG/0.5ML Subcutaneous Solution Pen-injector (Dulaglutide)Indicat ions:Type 2 diabetes mellitus with diabetic peripheral angiopathy without gangrene, with long-term current use of insulin ([facility]),Type 2 diabetes mellitus with hemoglobin A1c goal of less than 8.0% ([facility]) Inject 3 mg under the skin once [...] WITH FOOD 90 Tablet 3 10/31/2023 Active documented as of this encounter (statuses as of 11/01/2023) Active Problems Problem Noted Date Diagnosed Date [...] as of this encounter (statuses as of 11/01/2023) Resolved Problems Problem Noted Date Diagnosed Date [...] as of this encounter (statuses as of 11/01/2023) Immunizations Name Administration Dates Next Due Pneumococcal [...] encounter Miscellaneous Notes * Telephone Encounter - Kaye Saha RPh - 11/01/2023 3:18 PM EDTRefused Prescriptions: Disp Refills Buprenorphine 15 MCG/HR Transdermal Patch *4 Patch0 Sig: place 1 PATCH topically ONCE THE SKIN ONCE WEEKLY Refused By: KAYE SAHA Reason for Refusal: Duplicate Request * Telephone Encounter - Jennifer Saeed CPhT - 11/01/2023 2:38 PM EDT Pt requesting HIGH PRIORITY due to OUT OF MED Pt STATED HE CALLED 5 times for refills Did you pend patient's preferred pharmacy and medication before forwarding?yes Pharmacy: [facility] [address] Pending Prescriptions: Disp Refills Buprenorphine 15 MCG/HR Transdermal Patch*4 Patch0 Sig: place 1 PATCH topically ONCE THE SKIN ONCE WEEKLY Last Visit: 09/16/2023 (in office), Visit date not found (telemedicine) Next Visit: Visit date not found If no future appointments scheduled, and last appointment is greater than a year ago, please schedule patient for a follow-up appointment Last date the medication was ordered: 09/30/23 Is this request for a controlled substance? Yes, What was the last refill date 09/30/23 w/ quantity 4 and dosage 15 and Urine Drug Screen was completed Urine [...] Upcoming Encounters Date Type Department Care Team ([facility] st Contact Info) Description 11/28/2023 6:10 PM EDT Pharmacy Pharmacy [address] [phone] Pharmacist2, [facility] [address] [address] Health Maintenance Due Date Last Done Comments [...] encounter Medical Devices Implanted Type Area Box Office Clerk Device Identifier Shelf Expiration Date Model / Serial / Lot Sut Steel 6 [id number] - [id number] Implanted:Qty: 4 on 06/18/2016 by Wicho Mason MD at OR [facility] [place] N/A: Sternum JN[place] : [employer] 03/31/2021 [id number] / / [id number] Graft Marker Coronary - [id number] Implanted:Qty: 1 on 06/18/2016 by Wicho Mason MD at OR [facility] N/A: Aorta VM CARDIO VASCULAR 10/29/2017 [id number] / / [id number] documented as of this encounter Visit Diagnoses [...] Power of Attor morelia? No Care Teams Industrial Safety And Health Specialist Relationship Specialty Start Date End Date Joey Rose DO [address] [place] [address] PCP - General Internal Medicine 12/03/20 documented as of this encounter
--- OUTSIDE RECORDS SUMMARY | 2023-11-02 15:22 | External Medical Summary | Summary of Care ---
Author Name Unknown Organization [facility] Address [address] [facility] [place] [address] Phone [phone] Care Team Providers Care Vegetable Farm Worker Name Role Phone Joey Cody DO Primary Care Provid er Reason for Referral * Medication Prior Authorization - Closed Specialty Diagnoses / Procedures Referred By Ming ruiz Referred To Contact Diagnoses Spinal stenosis of lumbar region without neurogenic claudication Chronic bilateral low back pain with bilateral sciatica Joey Cody DO [address] [place] [address] Referral ID Status Reason Start Date Expiration Date Visits Re quested Visits Authorized [id number] Closed 999 999 Reason for Visit * Reason Onset Date Comments Medication Refill 10/31/2023 Encounter Details Date Type Department Care Team ([facility] Contact Info) Description 10/31/2023 Refill Family Practice [facility] [address] [place] [address] Joey Cody DO [address] [place] [address] Spinal stenosis of lumbar [...] Tablet Sublingual (Nitrostat)Indicati ons:Coronary artery disease involving [place] coronary artery of [place]ita heart without angina pectoris Place 1 Tablet [...] goal LDL below 70,Coronary artery disease involving [place] coronary artery of [place] heart without angina pectoris Take 1 Tablet [...] Hour (toPROL XL)Indications:Gabriele nary artery disease involving w[place] coronary artery of [place] heart without angina pectoris TAKE ONE TABLET BY MOUTH ONCE DAILY 90 Tablet 3 09/20/2023 Active NovoLOG Mix 70/30 FlexPen (70-30) 100 UNIT/ML Suspension Pen-injector (Insulin Aspart Prot & Aspart)Indications: Type 2 diabetes mellitus with diabetic peripheral angiopathy without gangrene, with long-term current use of insulin ([facility]) Inject under the skin 2 times a day. 70 units before breakfast and 70 units before supper. 120 mL 1 09/21/2023 Active Pen [place] 32G X 6 MMIndications:Type 2 diabetes mellitus with diabetic peripheral angiopathy without gangrene, with long-term current use of insulin ([facility]) Use as directed. Use to inject Novolog insulin twice a day 200 Each 1 09/21/2023 Active Trulicity 3 MG/0.5ML Subcutaneous Solution Pen-injector (Dulaglutide)Indica tions:Type 2 diabetes mellitus with diabetic peripheral angiopathy without gangrene, with long-term current use of insulin ([facility]),Type 2 diabetes mellitus with hemoglobin A1c goal of less than 8.0% ([facility]) Inject 3 mg under the skin once a week. 6 mL 1 09/21/2023 Active HYDROcodone-Acetami nophen 10-325 MG Oral TabletIndications:C [...] MUSCLE SPASMS 90 Tablet 1 10/19/2023 Active Buprenorphine 15 MCG/HR Transdermal Patch WeeklyIndications:S jose enrique stenosis of lumbar region without neurogenic claudication,Chroni c bilateral low back pain with bilateral sciatica Place 1 Patch topically on the skin once a week. 4 Patch 11/01/2023 Active Buprenorphine 15 MCG/HR Transdermal Patch WeeklyIndications:S jose enrique stenosis of lumbar region without neurogenic claudication,Chroni c bilateral low back pain with bilateral sciatica Place 1 Patch topically on the skin once a week. 4 Patch 09/30/2023 4 Discontinu ed(Refill) documented as of this [...] Telephone Encounter - Joey Cody DO - 11/01/2023 4:51 PM EDT Signed Prescriptions: Disp Refills Buprenorphine 15 MCG/HR Transdermal Patch *4 Patch0 Sig: Place 1 Patch topically on the skin once a week. Authorizing Provider: JOEY CODY * Telephone Encounter - Joey Cody DO - 11/01/2023 4:51 PM EDT Signed Prescriptions: Disp Refills Buprenorphine 15 MCG/HR Transdermal Patch *4 Patch0 Sig: Place 1 Patch topically on the skin once a week. Authorizing Provider: JEOY CODY * Telephone Encounter - Ronaldo Francois robotics engineer - 11/01/2023 10:45 AM EDT Pt's EC is asking high priority, Pt is out of patches. EC states Pt is having withdrawal symptoms. Pt's EC calling to check on status of Buprenorphine 15 MCG/HR Transdermal Patch Weekly . Caller cankaris reached at [phone]. Thank you, Ronaldo Francois Geriatric Assistant I [facility] 11/01/2023,10:45 AM * Telephone Encounter - Kaye Woodruff [facility] - 11/01/2023 9:54 AM EDTPending Prescriptions: Disp Refills Buprenorphine 15 MCG/HR Transdermal Patch *4 Patch0 Sig: Place 1 Patch topically on the skin once a week. * Telephone Encounter - Kaye Woodruff RPh - 11/01/2023 9:53 AM EDT I have reviewed the patients controlled substance dispensing history in the Prescription Drug Monitoring Program in compliance with the [facility] regulations before prescribing a controlled substance. PDMP checked on 11/01/2023. Pending Prescriptions: Disp Refills Buprenorphine 15 MCG/HR Transdermal Patch*4 Patch0 Sig: Place 1 Patch topically on the skin once a week. Last Visit: 09/16/2023 (in office), Visit date not found (telemedicine) Next Visit: Visit date not found Date medication was last filled: 09/30/23 Date medication is due for refill: 10/27/23 Pharmacy: [facility] [address] Is this request for a controlled [...] request. Please approve if appropriate. Thanks, Kaye Woodruff PharmD Clinical Pharmacist [facility] [phone] 11/01/2023, 9:53 AM * Telephone Encounter - Bo Ba, robotics engineer - 10/31/2023 9:18 AM EDT Did you pend patient's preferred pharmacy and medication before forwarding?yes Pharmacy: [facility] Pending Prescriptions: Disp Refills Buprenorphine 15 [...] appointment Last date the medication was ordered: 09/30/2023 Is this request for a controlled substance?Yes, What was the last refill date 09/30/2023 w/ quantity 4 and dosage 15 and [...] Upcoming Encounters Date Type Department Care Team ([facility] Contact Info) Description 11/28/2023 6:10 PM EDT Pharmacy Pharmacy [address] [phone] Pharmacist2, [facility] [address] [address] Health Maintenance Due Date Last Done Comments [...] COPD 09/15/2024 09/16/2023 Alpha-1 Antitrypsin Completed 12/14/2022 HPV (Gardasil) Vaccine Aged Out No lo nger eligible based on patient's age to complete this topic Hepatitis B Vaccine Aged Out No longe r eligible based on patient's age to complete this topic MENINGOCOCCAL (MENACTRA/MENVEO) Aged Out No longer eligible based on patient's age to complete this topic documented as of this encounter Medical Devices Implanted Type Area Watch Assembly Instructor Device Identifier Shelf Expiration Date Model / Serial / Lot Sut Steel 6 [id number] - [id number] Implanted:Qty: 4 on 06/18/2016 by Wicho Mason MD at OR [facility] [place] N/A: Sternum JNJ : [employer] 03/31/2021 [id number] / / [id number] Graft Marker Coronary - [id number] Implanted:Qty: 1 on 06/18/2016 by Wicho Mason MD at OR [facility] [place] N/A: Aorta VM CARDIO VASCULAR 10/29/2017 [id number] / / [id number] documented as of this encounter Visit Diagnoses [...] Power of Attor morelia? No Care Teams Vegetable Farm Worker Relationship Specialty Start Date End Date Joey Cody DO [address] [place] [id number] PCP - General Internal Medicine 12/03/20 documented as of this encounter
--- NOTE | 2023-11-02 16:48 | Communication Note ---
Date of Service: November 02, 2023 Patient agitated over bolus insulin, will hold. Comm order place to notify physician for glucose >300 Encourage basal coverage with glargine
[2023-11-02] MEDS: OLANZapine ZYDIS 5 MG ORALLY DIS. TAB PO STA (17:28)
[2023-11-03] MEDS: ACETAMINOPHEN 325 MG TAB PO PRN (02:49)
--- NOTE | 2023-11-03 07:30 | Electrocardiogram Report ---
Test Reason : Blood Pressure : / mmHG Vent. Rate : 106 BPM Atrial Rate : 106 BPM P-R Int : 178 ms QRS Dur : 098 ms QT Int : 328 ms P-R-T Axes : 049 -47 088 degrees QTc Int : 435 ms Sinus tachycardia with frequent Premature ventricular complexes Left axis deviation Minimal voltage criteria for LVH, may be normal variant ( Сергей product ) Anterior infarct , age undetermined Possible Inferior infarct Abnormal ECG When compared with ECG of 23-SEP-2005 10:15, Premature ventricular complexes are now Present Anterior infarct is now Present Confirmed by Mehdi Paz ([id number]) on 11/03/2023 7:29:54 AM Referred By: REFERRED SELF Confirmed By:Mehdi Paz
[2023-11-03 07:32] LABS: Basophils # (auto) 0.03 K/uL (0.00-0.20); Basophils % (auto) 0.4 %; Eosinophils # (auto) 0.07 K/uL (0.00-0.50); Eosinophils % (auto) 0.9 %; Hemoglobin 13.1 g/dl (14.0-18.0); Immature Granulocytes # (auto) 0.13 K/uL (0.01-0.20); Immature Granulocytes % (auto) 1.6 %; Lymphocytes # (auto) 0.96 K/uL (1.20-3.40); Lymphocytes % (auto) 11.9 %; Mean Corpuscular Hgb Conc 34.5 g/dL (32.0-36.0); Mean Platelet Volume 11.3 fL (9.4-12.4); Monocytes # (auto) 0.69 K/uL (0.11-0.59); Monocytes % (auto) 8.6 %; Neutrophils # (auto) 6.17 K/uL (1.40-6.50); Neutrophils % (auto) 76.6 %; Platelet Count 39 K/uL (130-400); RDW Coefficient of Variation 13.2 % (11.5-14.5); RDW Standard Deviation 42.3 fL (36.4-46.3); Red Blood Count 4.37 M/uL (4.70-6.10); White Blood Count 8.05 K/ul (4.8-10.8)
[2023-11-03 07:39] LABS: BUN Creatinine Ratio 31.8 (10-20); Calcium 8.8 mg/dl (8.6-10.3); Creatinine Clr Calc Pharmacy 65.6 ml/min; Est GFR (African American) 72.6 ml/min; Est GFR (Non-African American) 62.6 ml/min; Potassium 3.9 mmol/L (3.5-5.1)
--- NOTE | 2023-11-03 07:44 | Electrocardiogram Report ---
Test Reason : Blood Pressure : / mmHG Vent. Rate : 098 BPM Atrial Rate : 098 BPM P-R Int : 190 ms QRS Dur : 108 ms QT Int : 346 ms P-R-T Axes : 066 -57 070 degrees QTc Int : 441 ms Normal sinus rhythm Premature ventricular complexes Left axis deviation Anterior infarct (cited on or before 01-NOV-2023) Abnormal ECG When compared with ECG of 01-NOV-2023 21:28, No significant change Confirmed by Mehdi Paz ([id number]) on 11/03/2023 7:44:12 AM Referred By: REFERRED SELF Confirmed By:Mehdi Paz
[2023-11-03 07:56] LABS: Folate (Folic Acid),Ser orPlas 9.35 ng/ml (>5.38)
[2023-11-03 07:57] LABS: Ferritin 179.3 ng/ml (8-388)
[2023-11-03] MEDS: tiZANidine HCL 4 MG TABLET PO PRN (08:10)
[2023-11-03 08:18] LABS: Albumin Globulin Ratio 1.4 (0.9-2); Albumin Level 3.4 gm/dl (3.4-5.0); Bilirubin,Total 1.9 mg/dl (0.2-1.0); Globulin 2.4 gm/dl (2.5-4.0); Total Protein 5.8 gm/dl (6.0-8.3)
--- NOTE | 2023-11-03 16:43 | Hospitalist Progress Note ---
Date of Service November 03, 2023 Assessment & Plan (1) Severe sepsis: Plan: Mr. 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 #Acute Metabolic encephalopathy 2/2 infeciton *resolved likely 2/2 infection treating as below delirium precautions #Sepsis 2/2 acute complicated cystitis POA #Uncomplicated GNB bacteremia, klebsiella/enterbacterales clinically improving, HDS, leukocytosis resolved Blood cultures 10/31 08/03 GNB, UCx GNB Continue cefepime per BCID empiric guidance Plan to transition to PO contingent on susceptibilities for 10 day course Repeat blood cultures this evening iso bilateral knee replacements #Acute anemia, stable #Chronic thrombocytopenia likely 2/2 sepsis, anemia labs in am platelets stabilized, follow cbc for uptrend leukocytosis resolved Lower iron stores, will recommend iron supplement B12 and folate WNL #Mild rhabdo, nontraumatic *resolved #Elevated troponin Troponin elevation in conjunction with rhabdo/sepsis CK WNL D/C fluids and encourage PO intake . #HFmrEF #ischemic cardiomyopathy (40 to 45%, TTE 2021) #CAD status post CABG/stent Continue ASA Continue amlodipine and metoprolol Resume home lisinopril in am given HDS #DMTII Declined bolus insulin regimen, conitnue basal plan to resume home regimen upon dc #Prior CVA continue ASA #Chronic Back pain continue butrans patch Hold tizanidine 2/2 encephalopathy PT/OT no needs return home Dispo likely tomorrow DVT ppx SCDS Admission and Anticipated Discharge Date Admission Date: November 02, 2023 Subjective Noted delirium overnight, reoriented by nursing staff No acute concerns this am, daughters at bedside Physical Exam Constitutional: WD/WN, vitals as above Respiratory: normal respiratory effort, lungs clear to auscultation Cardiovascular: RRR, no murmur, no edema Musculoskeletal: no cyanosis or clubbing, extremities motor strength 5/5 Results & Data Results & Data Vital Signs (Past 12 Hours) Vital Signs Temp Pulse Pulse Resp BP BP Pulse Ox 0704/24 15:44 37.2 C 94 H 18 155/80 H 91 11/03/23 13:01 85 11/03/23 11:45 36.7 C 88 16 145/85 H 92 11/03/23 09:36 11/03/23 07:42 36.7 C 90 19 173/96 H 92 11/03/23 07:00 96 H O2 Del Method O2 Flow Rate 11/03/23 15:44 Nasal Cannula 2 11/03/23 13:01 11/03/23 11:45 Nasal Cannula 2 11/03/23 09:36 Nasal Cannula 2 11/03/23 07:42 Nasal Cannula 2 11/03/23 07:00 Laboratory Results Short CBC 11/03/23 Range/Units 06:52 WBC 8.05 (4.8-10.8) K/ul Hgb 13.1 L (14.0-18.0) g/dl Hct 38.0 L (42.0-52.0) % Plt Count 39 L (130-400) K/uL BMP 11/03/23 06:52 Sodium 136 Potassium 3.9 Chloride 107 Carbon Dioxide 22 BUN 35 H Creatinine 1.10 Glucose 222 H Calcium 8.8 Cardiac Enzymes 11/03/23 Range/Units 06:52 Total Creatine Kinase 181 (30-223) U/L Liver Function 11/03/23 Range/Units 06:52 Total Bilirubin 1.9 H (0.2-1.0) mg/dl AST 27 (13-39) U/L ALT 13 (7-52) U/L Alkaline Phosphatase 86 (34-104) U/L Albumin 3.4 (3.4-5.0) gm/dl Medications Administered Home Medications Medication Instructions Recorded Confirmed Last Taken amlodipine 5 mg tablet 5 mg PO QAM 12/05/20 11/02/23 11/01/23 aspirin 81 mg tablet,delayed 81 mg PO DAILY 12/05/20 11/02/23 11/01/23 release atorvastatin 80 mg tablet 80 mg PO HS 12/05/20 11/02/23 10/31/23 hydrocodone 10 mg-acetaminophen 1 tab PO Q6H PRN pain,moderate 12/05/20 11/02/23 Unknown 325 mg tablet insulin human U-100 NPH-regulr 70 unit subcut BID 12/05/20 11/02/23 11/01/23 70-30 mix 100 unit/mL subcutaneous both doses susp (Novolin 70/30 U-100 Insulin) metoprolol succinate 50 mg 50 mg PO DAILY 12/05/20 11/02/23 11/01/23 tablet,extended release 24 hr nitroglycerin 0.4 mg sublingual 0.4 mg sublingual Q5M PRN Chest 12/05/20 11/02/23 Unknown tablet Pain buprenorphine 15 mcg/hour weekly 1 patch topical WK 11/02/23 11/02/23 11/01/23 transdermal patch diclofenac sodium 1 % topical gel 2 g topical BID PRN Pain 11/02/23 11/02/23 Unknown dulaglutide 3 mg/0.5 mL 3 mg subcut WK 11/02/23 11/02/23 10/30/23 subcutaneous pen injector (Trulicity) ibuprofen 600 mg tablet (IBU) 600 mg PO Q8 PRN Pain 11/02/23 11/02/23 Unknown lisinopril 5 mg tablet 5 mg PO QAM 11/02/23 11/02/23 11/01/23 sertraline 100 mg tablet 100 mg PO QAM 11/02/23 11/02/23 11/01/23 tizanidine 4 mg tablet 4 mg PO Q8 PRN Muscle Spasm 11/02/23 11/02/23 Unknown Active Medications Generic Name Dose Route Start Last Admin Trade Name Freq PRN Reason Stop Dose Admin Acetaminophen 650 mg 11/02/23 00:42 11/03/23 02:49 Acetaminophen 325 Mg Tab PO 12/02/23 00:41 650 mg QID PRN Administration pain/fever Hydrocodone Bitart/Acetaminophen 1 tab 11/02/23 00:42 11/02/23 15:13 Hydrocodone/Acetamophen 5/325mg Tab PO 11/16/23 00:41 1 tab QID PRN Administration Pain Amlodipine Besylate 5 mg 11/02/23 09:00 11/03/23 08:09 Amlodipine Besylate 5 Mg Tab PO 12/02/23 08:59 5 mg QAM SHELTON Administration Aspirin 81 mg 11/02/23 09:00 11/03/23 08:09 Aspirin 81 Mg Ectab PO 12/02/23 08:59 81 mg DAILY SHELTON Administration Cefepime HCl 2,000 mg/ Syringe 20 mls @ 5 mls/min 11/02/23 07:00 11/03/23 15:16 IV 11/12/23 06:59 5 mls/min Q8H SHELTON Administration Protocol Insulin Aspart 0 units 11/02/23 02:15 11/02/23 17:01 Insulin Aspart Per Unit Charge SC 12/02/23 02:14 Not Given ACHS SHELTON Insulin Glargine 10 units 11/02/23 21:00 11/03/23 09:18 Lantus Per Unit Charge SQ 12/02/23 20:59 10 units BID SHELTON Administration Metoprolol Succinate 50 mg 11/02/23 09:00 11/03/23 08:09 Metoprolol Succ 50mg Ext Rel Tab PO 12/02/23 08:59 50 mg DAILY SHELTON Administration Miscellaneous 1 each 11/02/23 08:00 11/03/23 15:16 Check Buprenorphine Patch N/A 12/02/23 07:59 1 each QS SHELTON Administration Sertraline HCl 100 mg 11/02/23 09:00 11/03/23 08:08 Sertraline Hcl 100 Mg Tablet PO 12/02/23 08:59 100 mg QAM SHELTON Administration Tizanidine HCl 2 mg 11/02/23 02:15 11/03/23 08:10 Tizanidine Hcl 4 Mg Tablet PO 12/02/23 02:14 2 mg Q8 PRN Administration Muscle Spasm
[2023-11-04 05:42] LABS: Hematocrit (blood only) 35.3 % (42.0-52.0); Hemoglobin 12.3 g/dl (14.0-18.0); Mean Corpuscular Hemoglobin 30.2 pg (25.0-34.0); Mean Corpuscular Hgb Conc 34.8 g/dL (32.0-36.0); Mean Corpuscular Volume 86.7 fL (80.0-100.0); Mean Platelet Volume 12.7 fL (9.4-12.4); Platelet Count 42 K/uL (130-400); RDW Coefficient of Variation 13.2 % (11.5-14.5); RDW Standard Deviation 42.4 fL (36.4-46.3); Red Blood Count 4.07 M/uL (4.70-6.10); White Blood Count 8.32 K/ul (4.8-10.8)
[2023-11-04 05:59] LABS: BUN Creatinine Ratio 36.4 (10-20); Calcium 9.1 mg/dl (8.6-10.3); Creatinine Clr Calc Pharmacy 67.5 ml/min; Est GFR (African American) 75.1 ml/min; Est GFR (Non-African American) 64.8 ml/min; Potassium 3.8 mmol/L (3.5-5.1)
[2023-11-04] MEDS: lisinopril 5 MG TAB PO SCH (09:21)
[2023-11-04] MEDS: FERROUS SULFATE 325 MG TAB PO SCH (09:22)
[2023-11-04] MEDS: levoFLOXacin 750 MG TAB PO ONE (09:24)
--- NOTE | 2023-11-04 09:58 | Discharge Summary ---
Discharge Summary Date of Service November 04, 2023 Principal Dx & Hospital Course #1 = Principal Diagnosis (1) Severe sepsis: Mr. 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 He was also noted to have uncomplicated gram negative bacteremia.Cultures resulted back with fluoroquinolone susceptible klebsiella. Patient started on levofloxacin with plans for 10 days total. Patient remained hemodynamically stable and uncomplicated course. Patient denied any acute concerns on day of discharge. #Acute Metabolic encephalopathy 2/2 infection *resolved likely 2/2 infection treated as below delirium precautions #Sepsis 2/2 acute complicated cystitis POA #Uncomplicated GNB bacteremia, klebsiella/enterbacterales clinically improving, HDS, leukocytosis resolved Blood cultures 10/31 4/4 GNB, UCx GNB Continue cefepime per BCID empiric guidance -Repeat cultures negative UA and BCx klebsiella Transition to Levofloxacin daily for total 10 days #Acute anemia, stable #Chronic thrombocytopenia likely 2/2 sepsis, anemia labs in am platelets stabilized, follow cbc for uptrend leukocytosis resolved Lower iron stores, will recommend iron supplement B12 and folate WNL #Mild rhabdo, nontraumatic *resolved #Elevated troponin Troponin elevation in conjunction with rhabdo/sepsis CK WNL D/C fluids and encourage PO intake . #HFmrEF #ischemic cardiomyopathy (40 to 45%, TTE 2021) #CAD status post CABG/stent Continue ASA Continue amlodipine and metoprolol Continue home lisinopril #DMTII Declined bolus insulin regimen, continue basal Resume home regimen #Prior CVA continue ASA #Chronic Back pain continue butrans patch Discussed home pain regimen likely contributes to sleepiness PT/OT home without services Notes For Next Care Provider Medication Changes From Visit Levofloaxcin 750mg daily, 7 tablets for 10 day course abx total Admission HPI Per Admitting Provider History obtained from patient, family, and records. History somewhat limited from patient secondary to mild hearing impairment. Medical history significant for chronic systolic heart failure secondary to ischemic cardiomyopathy (40 to 45%, TTE 2021), CAD status post CABG/stent, CVA, hypertension, hyperlipidemia, DM2 insulin requiring, chronic thrombocytopenia, chronic back pain on Butrans, history of tremors, mood disorder, past tobacco abuse, hx MRSA. Patient jittery for about a week. PCP's office unable to refill Butrans patch for almost a week. Increased urinary frequency without unusual abdominal or back pain yesterday. Fever chills without unusual chest pain, SOB. Patient fell at home last night from being shaky. Subsequent head trauma without LOC. Patient brought to ER for evaluation. Butrans patch, Zosyn administered at the ER. 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 Admission Exam Per Admitting Provider GENERAL: Slightly uncomfortable, obese, hard of hearing, no respiratory distress SKIN: Normal color, warm HEENT: Bespectacled,, nasal cannula in place [place] palpebral conjunctivae, no ptosis, dry buccal mucosa NECK : Supple, short neck, tenderness CHEST : Decreased breath sounds, no tenderness HEART : RRR, no obvious murmurs ABDOMEN: Some distention, nontender EXTREMITIES : Minimal LE swelling, no LE tenderness, no other conspicuous deformities noted NEUROLOGIC : Coherent, no facial asymmetry, hard of hearing, gait and stance not assessed Discharge Exam Constitutional WD/WN, vitals as above Respiratory normal respiratory effort, lungs clear to auscultation Cardiovascular RRR, no murmur, no edema Gastrointestinal (Abdomen) normal bowel sounds, soft, nontender, no hepatosplenomegaly Updated Medication List Medication Instructions Recorded Confirmed Type amlodipine 5 mg tablet 5 mg PO QAM 12/05/20 11/02/23 History aspirin 81 mg tablet,delayed 81 mg PO DAILY 12/05/20 11/02/23 History release atorvastatin 80 mg tablet 80 mg PO HS 12/05/20 11/02/23 History hydrocodone 10 mg-acetaminophen 1 tab PO Q6H PRN pain,moderate 12/05/20 11/02/23 History 325 mg tablet insulin human U-100 NPH-regulr 70 unit subcut BID 12/05/20 11/02/23 History 70-30 mix 100 unit/mL subcutaneous susp (Novolin 70/30 U-100 Insulin) metoprolol succinate 50 mg 50 mg PO DAILY 12/05/20 11/02/23 History tablet,extended release 24 hr nitroglycerin 0.4 mg sublingual 0.4 mg sublingual Q5M PRN Chest 12/05/20 11/02/23 History tablet Pain buprenorphine 15 mcg/hour weekly 1 patch topical WK 11/02/23 11/02/23 History transdermal patch diclofenac sodium 1 % topical gel 2 g topical BID PRN Pain 11/02/23 11/02/23 History dulaglutide 3 mg/0.5 mL 3 mg subcut WK 11/02/23 11/02/23 History subcutaneous pen injector (Trulicity) ibuprofen 600 mg tablet (IBU) 600 mg PO Q8 PRN Pain 11/02/23 11/02/23 History lisinopril 5 mg tablet 5 mg PO QAM 11/02/23 11/02/23 History sertraline 100 mg tablet 100 mg PO QAM 11/02/23 11/02/23 History tizanidine 4 mg tablet 4 mg PO Q8 PRN Muscle Spasm 11/02/23 11/02/23 History ferrous sulfate 325 mg (65 mg 325 mg PO QAM #30 tabs 11/04/23 Rx iron) tablet,delayed release levofloxacin 750 mg tablet 750 mg PO DAILY 7 days #7 tabs 11/04/23 Rx Hospital Stay Data Consultations 11/01/23 23:12 ED Decision to Admit Stat Diagnostic Imagining Performed 11/01/23 21:58 CT head/brain wo con Stat Pending Results Patient Have Any Pending Studies at Discharge: No Discharge Instructions Given to Patient (Per Discharging Provider) You were admitted for fevers and found to have a complicated urinary tract infection. It was noted that you had bacteria in your blood (bacteremia) related to this urinary tract infection. For over 48 hours, you were stable and without fevers on IV antibiotics. You will continue on an additional 7 days of antibiotics: -Levofloxacin 750mg daily (your next dose is tomorrow 11/04 at 10am-11am) You were also noted to have low iron, it is recommended you continue an iron supplement daily. Given increased sleepiness, it is recommended you and your family discuss the benefits and risks of your current pain regimen with the prescribing provider as a side effect is often increased sleepiness. Total Time Total Time Spent Total Time Spent (In Minutes): 45
[2023-11-08] MEDS ORDERED: NON-FORMULARY MEDICATION (Buprenorphine 15 mcg/hour patch weekly) TOP SCH (09:00)
== END 2023-11-04 11:14 | disposition home or self-care (01) | DRG 871 ==
LOC: ED 21:21 → 2N 11-02 00:40
DX: Z79.84 Long term (current) use of oral hypoglycemic drugs; E87.20 Acidosis, unspecified; A41.59 Other Gram-negative sepsis; S09.90XA Unspecified injury of head, initial encounter; W18.39XA Other fall on same level, initial encounter; Z68.41 Body mass index [BMI] 40.0-44.9, adult; I25.5 Ischemic cardiomyopathy; I50.22 Chronic systolic (congestive) heart failure; Z79.82 Long term (current) use of aspirin; Y92.013 Bedroom of single-family (private) house as the place of occurrence of the external cause; Z79.4 Long term (current) use of insulin; Z95.5 Presence of coronary angioplasty implant and graft; Z87.891 Personal history of nicotine dependence; Z95.1 Presence of aortocoronary bypass graft; E66.01 Morbid (severe) obesity due to excess calories; G93.41 Metabolic encephalopathy; R65.20 Severe sepsis without septic shock; I11.0 Hypertensive heart disease with heart failure; Z96.653 Presence of artificial knee joint, bilateral; Z88.8 Allergy status to other drugs, medicaments and biological substances; N30.00 Acute cystitis without hematuria; D69.6 Thrombocytopenia, unspecified; Z86.14 Personal history of Methicillin resistant Staphylococcus aureus infection; E83.42 Hypomagnesemia; M62.82 Rhabdomyolysis